=== PATIENT | male | born 1960 | race Caucasian/White ===

== ENCOUNTER 2018-07-08 09:21 | Inpatient (IN) ==
[2018-07-08] MEDS ORDERED: NS 1,000 ML IV ONE (09:37)
[2018-07-08] MEDS ORDERED: ATIVAN IV ONE (09:37)
[2018-07-08] MEDS ORDERED: ZOFRAN IV ONE (09:37)
[2018-07-08 10:02] LABS: BASO# 0.01 X1000 (0.0-0.2); BASO% 0.1 % (0.0-0.8); HEMATOCRIT 41.1 % (42.0-52.0); HEMOGLOBIN 13.5 g/dL (14.0-18.0); IMM GRAN# 0.05 X1000 (0.0-0.04); IMM GRAN% 0.4 % (0.0-0.5); LYMPH# 0.73 X1000 (1.2-3.4); LYMPH% 5.5 % (20.5-51.1); MCH 33.6 PG (27-31); MCHC 32.8 g/dL (33-37); MCV 102.2 FL (81-99); MONO# 0.88 X1000 (0.11-0.59); MONO% 6.7 % (1.7-9.3); MPV 12.5 FL (7.4-10.4); NEUT# 11.53 X1000 (1.4-6.5); NEUT% 87.3 % (42.2-75.2); PLT 174 X1000 (130-400); RBC 4.02 XMIL (4.7-6.1)
[2018-07-08 10:27] LABS: ALB/GLOB RATIO 1.3; ALBUMIN 3.3 g/dL (3.5-5.0); CALCIUM 8.8 mg/dL (8.8-10.2); CREATININE 2.8 mg/dL (0.7-1.2); MAGNESIUM 2.6 mg/dL (1.5-2.7); POTASSIUM 4.7 mmol/L (3.5-5.1); TOTAL BILIRUBIN 2.18 mg/dL (0.20-1.00); TOTAL PROTEIN 5.9 g/dL (6.3-8.3)
--- NOTE | 2018-07-08 11:34 | Diag Imaging Result Doc PS360 ---
EXAM: CHEST-1 VIEW HISTORY: POSSIBLE SEPSIS TECHNIQUE: Chest single view COMPARISON: 06/29/2018 FINDINGS: Poor inspiratory effort. The heart is not enlarged. The vessels are not distended. There are no infiltrates. No effusion identified. There are multiple old rib fractures and an old injury to the right humerus. IMPRESSION: No pneumonia. Electronically signed by Adan Olea 07/08/2018 11:32 AM
--- NOTE | 2018-07-08 11:50 | PROVIDER DOCUMENTATION ---
This chart was entered by Kalli Evans Scribe, acting as scribe for Vish Acevedo CRNP. HPI-General Adult - General Source: patient - History of Present Illness -Gen Adult Nature of Presenting Problems: 58yom via EMS with hx of DC, HTN, Lupus c/o nausea, hematemesis, and bright bloody stools, and generalized weakness x 3 days. He denies diarrhea. The patie nt is a poor historian. He reports he has not had an alcoholic beverage in 2 days, but he usually drinks approximately 1 pint of whiskey daily x 10 years. He reports he has been attempting to discontinue use of alcohol for the past few days. He reports he is unsure if he began vomiting before of after he discontinued use of alcohol. Denies abdominal pain, fever, chills, chest pain, or SOB. Location of Pain/Injury: reports: none Pain Radiation: reports: no radiation Quality of Pain: reports: none Severity: reports: mild, moderate Onset/Duration: reports: 3 days ago Timing: reports: still present, intermittent, constant Context/Activities at Onset: reports: none Modifying Factors: improves with: nothing Associated Symptoms: reports: nausea, vomiting Similar Symptoms Previously?: No Recently seen or treated by another doctor?: No <Vish Acevedo - Last Filed: 07/08/18 11:48> <Zak Espinoza - Last Filed: 07/10/18 01:55> - General Chief Complaint: Nausea/Vomiting Stated Complaint: n/v Time Seen by Provider: 07/08/18 09:29 Allergies/Adverse Reactions: Patient Allergies Allergy/AdvReac Type Severity Reaction Status Date / Time No Known Allergies Allergy Verified 10/15/14 10:36 Home Medications: Home Medication List Medication Instructions Recorded Confirmed Last Taken Type Hydroxychloroquine [Plaquenil] 200 mg PO BID 09/02/13 07/08/18 10/15/14 History Lisinopril 40 mg PO DAILY 09/02/13 07/08/18 10/15/14 History Metoprolol [Lopressor] 50 mg PO BID 09/02/13 07/08/18 10/15/14 History Ranitidine [Zantac] 150 mg PO BID 09/02/13 07/08/18 10/15/14 History Hydroxyzine [Atarax] 25 mg PO QHS 05/28/14 07/08/18 10/14/14 History Isosorbide Mononitrate E.r. [Imdur] 30 mg PO DAILY 05/28/14 07/08/18 10/15/14 History Simvastatin 20 mg PO QHS 05/28/14 07/08/18 10/14/14 History Review of Systems - Adult - REVIEW OF SYSTEMS - ADULT Constitutional: denies: chills, fever Eyes: denies: discharge, dry eyes Ears, Nose, Mouth & Throat: denies: ear discharge, ear pain Cardiovascular: denies: chest pain, palpitations Respiratory: denies: cough, shortness of breath Gastrointestinal: reports: nausea, vomiting, other (bright bloody stools) Genitourinary: denies: dysuria, hematuria Musculoskeletal: denies: back pain, muscle aches, muscle weakness Integumentary: reports: no symptoms reported Neurological: denies: dizziness/vertigo, headache/migraines Psychiatric: reports: no symptoms reported Endocrine: reports: no symptoms reported Hematologic/Lymphatic: reports: no symptoms reported Allergic/Immunologic: reports: no symptoms reported All Other Systems: Reviewed and Negative <Vish Acevedo - Last Filed: 07/08/18 11:48> Past History - Adult - PAST MEDICAL HISTORY-ADULT Review of Records: reports: Old Records Reviewed, Nursing Assessment Review, Medications Reviewed Major Childhood Illnesses: reports: denies history Cardiovascular: reports: A-Fib, CAD, HTN, DC (x 4) Respiratory: reports: denies history Gastrointestinal: reports: denies history Genitourinary: reports: denies history Musculoskeletal: reports: arthritis Neurological: reports: denies history Endocrine/Immune: reports: lupus Other Conditions: reports: denies history - PRIOR SURGERIES/PROCEDURES Surgical/Procedure History: reports: cardiac stent, orthopedic (extremity) - PRIOR HOSPITALIZATIONS Prior Hospitalizations: reports: for similar symptoms - IMMUNIZATION STATUS Childhood Immunizations: See Nurse Assessment Flu Vaccine: See Nurse Assessment - FAMILY HISTORY Family History: reviewed, not pertinent - SOCIAL HISTORY Smoking: cigarettes, less than 1 pack/day Substance Use: alcohol Alcohol Use Frequency: every day Living Situation: alone <Vish Acevedo - Last Filed: 07/08/18 11:48> Physical Exam-General - PHYSICAL EXAM-ADULT Initial Vital Signs Reviewed: Yes - CONSTITUTIONAL General Appearance: alert, no apparent distress, cachetic. negative: lethargic, slow to respond - EYES Eyes: PERRL/EOMI, pink conjunctivae. negative: sclera injected, scleral icterus, sunken eyes - HEAD, EARS, NOSE, MOUTH & THROAT HENMT: normocephalic/atraumatic, pharynx normal, other (dry mucous membranes) - NECK Neck: non-tender, full range of motion, supple, normal inspection - RESPIRATORY Respiratory: chest non-tender, lungs clear, normal breath sounds, no pleuratic chest pain, no respiratory distress, no accessory muscle use. negative: rhonchi, wheezing - CARDIOVASCULAR Cardiovascular: normal peripheral pulses, regular rate, rhythm, no edema, no gallop, no murmur, tachycardia - GASTROINTESTINAL (ABDOMEN) Abdominal Exam: normal bowel sounds, non tender, soft, no pulsatile mass. negat myke: distended, guarding, rigid, rebound, tenderness, hernia, mass - MUSCULOSKELETAL Back Exam: normal inspection Extremity: normal range of motion, non-tender, normal inspection, no pedal edema , pelvis stable - SKIN Integumentary: normal color, warm/dry. negative: cyanosis, diaphoresis, jaundic e, mottled, pallor - NEUROLOGIC Neurologic: grossly normal, no motor/sensory deficits - PSYCHIATRIC Psych/Mental Status: normal mood/affect, normal thought content, normal thought process, oriented x 3 <Vish Acevedo - Last Filed: 07/08/18 11:48> Progress - PLAN OF CARE/RESULTS Progress/Plan/Lab Results: Vital Signs - 8 hr 07/08/18 09:25 Temperature 98.8 F Pulse Rate 131 H Respiratory Rate 17 Blood Pressure 112/73 Orders Category Date Time Status Cardiac Monitoring DIRECTED Care 07/08/18 09:37 Active ALCOHOL BLOOD Stat Lab 07/08/18 09:44 Ordered AMMONIA [CHEM] Stat Lab 07/08/18 09:44 Ordered AMYLASE [CHEM] Stat Lab 07/08/18 09:44 Ordered BLOOD CULTURE [BLDCUL] Stat Lab 07/08/18 09:37 Uncollected CBC WITH DIFF [HEME] Stat Lab 07/08/18 09:44 Ordered COMPREHENSIVE METABOLIC PANEL [CHEM] Stat Lab 07/08/18 09:44 Ordered LACTATE, PLASMA [CHEM] Stat Lab 07/08/18 09:44 Ordered LIPASE [CHEM] Stat Lab 07/08/18 09:44 Ordered MAGNESIUM [CHEM] Stat Lab 07/08/18 09:44 Ordered OCCULT BLOOD SCREENING [STOOL] Stat Lab 07/08/18 09:37 Uncollected TROPONIN T Stat Lab 07/08/18 09:44 Ordered UA NIMS W/REFLEX CULT [URINALYSIS] Stat Lab 07/08/18 09:37 Uncollected 0.9% Sodium Chloride Inj [Ns] 1,000 ml Med 07/08/18 09:37 Active IV 999 mls/hr Lorazepam [Ativan] Med 07/08/18 09:37 Discontinued 1 mg IV NOW ONE Ondansetron [Zofran] Med 07/08/18 09:37 Discontinued 4 mg IV NOW ONE Pt in agreement with admission plan. Result Diagrams: 07/08/18 09:32 07/08/18 09:32 - EKG 1 Time of EKG reading by physician:: 09:28 EKG Read and Signed by:: Deny Jones EKG Interpretation (*Must complete 3 of following elements*): Abnormal Rate: 128 Rhythm: Sinus tachycardia QRS: RBB Comments: pulmonary disease pattern - XRAY 1 XRAY Study: Chest (IMPRESSION: No pneumonia. Electronically signed by Adan Olea 07/08/2018 11:32 AM) - CONSULTS/PCP/HOSPITALIST Notification #1 *Consult/PCP/Hospitalist*: Dr. Cuellar Time Discussed: 11:42 Consult Disposition: Will see in ED, Admit (Md states he will enter admission orders.) <Vish Acevedo - Last Filed: 07/08/18 11:48> - PLAN OF CARE/RESULTS Progress/Plan/Lab Results: Orders Category Date Time Status Admit - [facility] Routine AdmDCTranf 07/08/18 13:28 Active Cardiac Monitoring DIRECTED Care 07/08/18 09:37 Completed IV Insertion ORDERED Care 07/08/18 11:08 Completed Nursing [Misc. NRSG Communication Order] DIRECTED Care 07/08/18 12:46 Completed Nursing- Obtain EKG ONCE Care 07/08/18 13:28 Completed Vital Signs Order Q30M Care 07/08/18 10:17 Completed CHEST-1 VIEW [RAD] Stat Exams 07/08/18 10:58 Completed ALCOHOL BLOOD Stat Lab 07/08/18 09:32 Completed AMMONIA [CHEM] Stat Lab 07/08/18 09:32 Completed AMYLASE [CHEM] Stat Lab 07/08/18 09:32 Completed BLOOD CULTURE [BLDCUL] Stat Lab 07/08/18 10:00 Results CBC WITH DIFF [HEME] Stat Lab 07/08/18 09:32 Completed CK PROFILE [SP CHEM] Stat Lab 07/08/18 11:25 Completed COMPREHENSIVE METABOLIC PANEL [CHEM] Stat Lab 07/08/18 09:32 Completed LACTATE, PLASMA [CHEM] Lab 07/08/18 15:42 Completed LACTATE, PLASMA [CHEM] Q3H Lab 07/08/18 12:54 Completed LACTATE, PLASMA [CHEM] Stat Lab 07/08/18 09:32 Completed LIPASE [CHEM] Stat Lab 07/08/18 09:32 Completed MAGNESIUM [CHEM] Stat Lab 07/08/18 09:32 Completed OCCULT BLOOD SCREENING [STOOL] Stat Lab 07/08/18 10:20 Completed PROTIME WITH INR [COAG] Stat Lab 07/08/18 09:32 Completed PTT [COAG] Stat Lab 07/08/18 09:32 Completed TROPONIN T Stat Lab 07/08/18 09:32 Completed TROPONIN T Stat Lab 07/08/18 11:25 Completed UA NIMS W/REFLEX CULT [URINALYSIS] Stat Lab 07/09/18 08:50 Completed 0.9% Sodium Chloride Inj [Ns] 1,000 ml Med 07/08/18 15:00 Discontinued Potassium Chloride 10 meq IV 150 mls/hr 0.9% Sodium Chloride Inj [Ns] 1,000 ml Med 07/08/18 09:37 Discontinued IV 999 mls/hr Chlordiazepoxide [Librium] Med 07/08/18 13:28 Discontinued 25 mg PO TID@0600,1300,2100 Hydroxychloroquine [Plaquenil] Med 07/08/18 21:00 Discontinued 200 mg PO BID Isosorbide Mononitrate E.r. [Imdur] Med 07/09/18 09:00 Active 30 mg PO DAILY LISINOpril [Prinivil] Med 07/09/18 09:00 Discontinued 40 mg PO DAILY Lorazepam [Ativan] Med 07/08/18 09:37 Discontinued 1 mg IV NOW ONE Metoprolol [Lopressor] Med 07/08/18 21:00 Active 50 mg PO BID Mvi [M.v.i.-12] 10 ml Med 07/08/18 12:07 Discontinued Folic Acid 1 mg Magnesium Sulfate 1 gm Thiamine 100 mg 0.9% Sodium Chloride Inj [Ns] 1,000 ml IV NOW Ondansetron [Zofran] Med 07/08/18 09:37 Discontinued 4 mg IV NOW ONE Ranitidine [Zantac] Med 07/08/18 21:00 Discontinued 150 mg PO BID SIMVAstatin [Zocor] Med 07/08/18 21:00 Discontinued 20 mg PO QHS Oxygen Device Stat Oth 07/08/18 10:58 Completed EKG [EKG] Stat Ther 07/08/18 13:28 Draft Transfer/Admit Order [TRANSFER] Routine Transfer 07/08/18 12:14 Completed Result Diagrams: 07/10/18 01:05 07/09/18 04:45 <Zak Espinoza - Last Filed: 07/10/18 01:55> Procedures - CENTRAL LINE Consent Form Signed?: No Time-Out Verification Completed?: Yes Central Line Lumen: triple Central Line Procedure Prep: Hand Hygeine Performed, Kit Utilized, Chloraprep, Sterile Body Drape Placed Patient Position (To prevent Air Embolism): Trendelenburg (SC/IJ) Central Line Position: internal jugular (L) Ultrasound Guided?: Yes Hat, mask, sterile gown, & sterile gloves worn by physician?: Yes Site scrubbed vigorously for 30 seconds? (Groin: 2 min): Yes Post Procedure: Sutured in place, Sterile field maintained, BioPatch placed, Sterile dressing applied, Blood aspirated from each lumen, Placement verfied by XRAY Complications: none <Zak Espinoza - Last Filed: 07/10/18 01:55> Departure - Departure Date of Disposition Decision: 07/08/18 Time of Disposition Decision: 11:42 Certified Medical Emergency: Emergent - Critical Care Note This patient required my direct & personal management of CC.: No <Vish Acevedo - Last Filed: 07/08/18 11:48> <Zak Espinoza - Last Filed: 07/10/18 01:55> - Departure DIAGNOSIS: Elevated troponin, Elevated lipase, Dehydration, Alcoholism Hypotension Qualifiers: Hypotension type: unspecified hypotension type Qualified Code(s): I95.9 - Hypotension, unspecified Vomiting Qualifiers: Vomiting type: unspecified Vomiting Intractability: non-intractable Nausea presence: with nausea Qualified Code(s): R11.2 - Nausea with vomiting, unspecified Disposition: ADMITTED INPATIENT 09 Condition: Fair Attestation - Physician/ DANNY Attestation Patient care was provided by Advanced Practice Provider:: Yes Advanced Practice Provider:: Vish Acevedo Advanced Practice Provider documentation review:: The Mid-level provider documentation, treatment plan and medical decision making was reviewed by the physician who agrees with all treatment and medical decision making by the MLP. The physician spent face to face time with patient:: No Advanced Practice Provider documentation review:: Supervising physician onsite and consulted in the evaluation and care of this patient. The physician did not have a face to face encounter with the patient. <Vish Acevedo - Last Filed: 07/08/18 11:48> - Physician/ DANNY Attestation The physician spent face to face time with patient:: Yes Advanced Practice Provider documentation review:: Supervising physician onsite and consulted in the evaluation and care of this patient. The physician did have a face to face encounter with the patient. <Zak Espinoza - Last Filed: 07/10/18 01:55> This chart was documented by the indicated scribe, (Kalli Evans, Sergioibe) and accurately reflects the services I performed and decisions made by , Vish Acevedo CRNP, as attested by the provider's signature.
[2018-07-08] MEDS ORDERED: M.V.I.-12 10 ML, FOLIC ACID 1 MG, MAGNESIUM SULFATE 1 GM, THIAMINE 100 MG in NS 1,000 ML IV ONE (12:07)
[2018-07-08 12:10] LABS: INR 0.91
[2018-07-08 12:11] LABS: PTT 27.9 Seconds (22.3-41.8)
--- NOTE | 2018-07-08 13:19 | HISTORY AND PHYSICAL ---
CHIEF COMPLAINT: Nausea and vomiting. PRESENT ILLNESS: This is one of several [facility] admissions for this 58-year-old white man, patient of Dr. Espino, with history of alcoholism who usually drinks a pint of whiskey daily, but has had none for the last 2 days. He is trying to quit. He had some nausea with vomiting and some hematemesis this morning, also bright red bloody stools. There has been no diarrhea. He had several lab abnormalities, including elevation of BUN and creatinine, positive troponin, elevation of liver functions and bilirubin. He is admitted for treatment of alcoholic liver disease, acute alcoholism, impending DTs, hematemesis, and weakness with hypotension. PAST MEDICAL HISTORY: Significant for hypertension, previous VT, lupus, previous strokes by CT in May. CURRENT MEDICATIONS: Plaquenil 200 mg b.i.d., lisinopril 40 mg daily, Lopressor 50 mg b.i.d., Zantac 150 mg b.i.d., hydroxyzine 25 mg at bedtime, Imdur 30 mg daily, simvastatin 20 mg at bedtime. ALLERGIES: None known. REVIEW OF SYSTEMS: Weakness, weight loss, nausea, alcoholism, alcoholic liver disease, and other conditions as above. He has had no significant recent chest pain or significant shortness of breath, although he does complain of weakness for the last couple or 3 days. He apparently has a cardiac stent. He smokes less than 1 pack per day. PHYSICAL EXAMINATION: VITAL SIGNS: Temperature 98.6 degrees, heart rate 124, respirations 17, blood pressure 95/54, O2 saturation on room air 98%. HEENT: He wears glasses. He has a melvin. Pharynx benign. NECK: Supple with no mass or lymphadenopathy. HEART: Regular in rate and rhythm with no murmur, rub, or gallop. LUNGS: Clear with no rales or rhonchi. ABDOMEN: Soft with no mass or tenderness. Bowel sounds are normal. EXTREMITIES: No cyanosis, clubbing, or edema. RECTAL AND GENITALIA: Deferred. IMPRESSION: 1. Gastritis, acute with hematemesis. 2. Alcoholism, acute and chronic. 3. Impending delirium tremens (DTs). 4. History of coronary artery disease. 5. History of cerebrovascular disease. 6. Lupus. 7. Hypertension. 8. Abnormal troponins. 9. Abnormal liver functions. 10. Acute kidney injury. PLAN: Admit to CICU. cc: Dylan Cuellar MD
[2018-07-08] MEDS: LIBRIUM PO SCH ×2 (14:14→20:18)
[2018-07-08] MEDS ORDERED: POTASSIUM CHLORIDE 10 MEQ in NS 1,000 ML IV ONE (15:00)
[2018-07-08] MEDS: LOPRESSOR PO SCH (20:18)
[2018-07-08] MEDS ORDERED: ZANTAC PO SCH (21:00)
[2018-07-08] MEDS ORDERED: PLAQUENIL PO SCH (21:00)
[2018-07-08] MEDS ORDERED: ZOCOR PO SCH (21:00)
[2018-07-09 05:15] LABS: BASO# 0.01 X1000 (0.0-0.2); BASO% 0.1 % (0.0-0.8); HEMATOCRIT 33.9 % (42.0-52.0); IMM GRAN# 0.02 X1000 (0.0-0.04); IMM GRAN% 0.3 % (0.0-0.5); LYMPH# 0.59 X1000 (1.2-3.4); LYMPH% 7.8 % (20.5-51.1); MCH 33.3 PG (27-31); MCHC 32.4 g/dL (33-37); MCV 102.7 FL (81-99); MONO% 6.6 % (1.7-9.3); MPV 12.3 FL (7.4-10.4); NEUT# 6.49 X1000 (1.4-6.5); NEUT% 85.2 % (42.2-75.2); PLT 125 X1000 (130-400); WBC 7.61 X1000 (4.8-10.8)
[2018-07-09 05:53] LABS: ALB/GLOB RATIO 0.9; ALBUMIN 2.5 g/dL (3.5-5.0); CREATININE 1.4 mg/dL (0.7-1.2); POTASSIUM 3.4 mmol/L (3.5-5.1); TOTAL PROTEIN 5.4 g/dL (6.3-8.3)
[2018-07-09] MEDS: LIBRIUM PO SCH ×3 (06:07→20:26)
[2018-07-09 07:24] LABS: LYMPHS 10 % (21-51); MONO 2 % (1-9); SEGS 88 % (42-75)
--- NOTE | 2018-07-09 07:53 | PROGRESS NOTE ---
DATE: 07/09/2018 SUBJECTIVE: Mr. Bullard is doing fair. The patient admitted with abdominal pain, nausea, vomiting, hematemesis, and melena. The patient was drinking heavily, had abdominal pain and generalized weakness. Nurses reported some urinary incontinence. He denied any high-grade fever or chills. The patient was tachycardic. The patient is vague and a poor historian. Admission history and physical noted. OBJECTIVE: Vital signs: Reviewed. Neck: Supple. No JVD. Lungs: Bibasilar crepitations, occasional wheezing. Cardiovascular: S1 and S2 heard. Abdomen: Soft, globular. Bowel sounds present. Tenderness in the epigastrium. Extremities: No cyanosis or clubbing. No acute DVT. Central Nervous System: Alert, awake. Answering questions fair. Able to move all 4 limbs. DIAGNOSTIC DATA: PT/INR is 0.91, PTT 27.9. Electrolytes done today, potassium 3.4. AST 592, ALT 239, lipase 1904, amylase 324. Patient's admission CPK was 1018. The patient did have leukocytosis on admission. Admission chemistry did revealed AST of 1091, ALT of 341, lipase 2033. ASSESSMENT: The patient admitted with: 1. Acute alcoholic pancreatitis, most likely alcoholic liver disease. 2. Rhabdomyolysis. 3. Upper gastrointestinal bleeding. 4. Gastritis. 5. Acute renal failure. 6. The patient does have a history suggestive of lupus. 7. Osteoarthritis. PLAN: Admit the patient. IV hydration. DT and seizure precaution. Proton pump inhibitor. Banana bag daily. GI consult. I am going to get CT scan. The overall prognosis is fair to guarded. Patient is aware. cc: MD Dylan Richard MD
--- NOTE | 2018-07-09 07:54 | Diag Imaging Result Doc PS360 ---
CHEST-PORTABLE - 07/09/2018 INDICATION: sob COMPARISON: 07/08/2018 FINDINGS: The lungs are normally expanded and clear. Heart size and mediastinal contours are normal. No pneumothorax or pleural effusion. IMPRESSION: Negative exam. Electronically signed by Pete Mcpherson 07/09/2018 7:51 AM
[2018-07-09 08:02] LABS: MAGNESIUM 2.6 mg/dL (1.5-2.7); PHOSPHORUS 1.8 mg/dL (2.7-4.5)
[2018-07-09] MEDS: LOPRESSOR PO SCH ×2 (08:16→20:26)
[2018-07-09] MEDS: IMDUR PO SCH (08:16)
[2018-07-09] MEDS: M.V.I.-12 10 ML, FOLIC ACID 1 MG, MAGNESIUM SULFATE 1 GM, THIAMINE 100 MG in NS 1,000 ML IV SCH ×6 (08:16)
[2018-07-09] MEDS: NICODERM PATCH TD SCH (08:16)
[2018-07-09] MEDS: PROTONIX IV SCH ×2 (08:16→20:26)
--- NOTE | 2018-07-09 08:20 | Diag Imaging Result Doc PS360 ---
EXAM: CT ABDOMEN/PELVIS W/O CONTRAST INDICATION: pancreatitis TECHNIQUE: This exam was performed using automated exposure control, adjustment of mA or kV according to patient size, and/or use of iterative reconstruction technique. COMPARISON: None. FINDINGS: There is a trace left basilar pleural fluid collection and adjacent left basilar atelectasis. There is also very minimal right basilar atelectasis. There is severe hepatic steatosis. The gallbladder is unremarkable. There is no evidence of biliary dilatation. The spleen is unremarkable. There is extensive inflammatory stranding surrounding the pancreas consistent with acute pancreatitis. No loculated fluid collection is identified to indicate an abscess given the limitations of an unenhanced study. There is no evidence of pancreatic pseudocyst. There is no pancreatic ductal dilatation. The adrenal glands, kidneys, and urinary bladder are unremarkable. There is a small amount of layering free fluid in the pelvis tracking from the inflamed pancreas. The appendix is normal. The remainder of the GI tract is essentially unremarkable. There is aortoiliac atherosclerotic calcification. There is no evidence of aortic aneurysm. 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 There is lumbar spondylosis. IMPRESSION: 1.Acute pancreatitis. 2.Severe hepatic steatosis. 3.Small left pleural effusion with adjacent left basilar atelectasis. 4.Other incidental/nonacute findings detailed above. Electronically signed by Konstantin Shabazz 07/09/2018 8:18 AM
[2018-07-09 08:42] LABS: HEMATOCRIT 37.2 % (42.0-52.0); HEMOGLOBIN 12.1 g/dL (14.0-18.0)
[2018-07-09 08:54] LABS: URINE SOURCE CLEAN CATCH
[2018-07-09 09:00] LABS: BILIRUBIN URINE SMALL (NEGATIVE); BLOOD URINE LARGE (NEGATIVE); COLOR YELLOW; GLUCOSE URINE NEGATIVE (NEGATIVE); KETONE URINE 10 mg/dL (NEGATIVE); LEUKOCYTES URINE NEGATIVE (NEGATIVE); NITRITE URINE NEGATIVE (NEGATIVE); PH URINE 5.5; PROTEIN URINE 30 mg/dL (NEGATIVE); SP GRAVITY URINE 1.009; TURBIDITY URINE CLEAR (CLEAR); UROBILINOGEN URINE 3 mg/dL (NORMAL)
[2018-07-09] MEDS ORDERED: PRINIVIL PO SCH (09:00)
[2018-07-09 09:01] LABS: UR EPITHELIAL CELLS <10 /HPF (<10); URINE BACTERIA NEGATIVE /HPF; URINE WBC <10 /HPF (<10)
[2018-07-09] MEDS: POTASSIUM CHLORIDE 20 MEQ in LR 1,000 ML IV SCH ×3 (09:16→18:54)
--- NOTE | 2018-07-09 10:44 | EKG Report ---
Test Performed on : 07/08/2018 09:28:40 AM Test Reason : elevated troponin Blood Pressure : / mmHG Vent. Rate : 128 BPM Atrial Rate : 128 BPM P-R Int : 122 ms QRS Dur : 112 ms QT Int : 346 ms P-R-T Axes : 068 -52 075 degrees QTc Int : 505 ms Sinus tachycardia. Indeterminate axis Pulmonary disease pattern Right bundle branch block Septal infarct (cited on or before 07-JAN-2009) Abnormal ECG When compared with ECG of 28-MAY-2014 09:58, premature ventricular complexes. are no longer present Vent. rate has increased BY 60 BPM QRS axis shifted left Questionable change in initial forces of Anteroseptal leads Unconfirmed Result
--- NOTE | 2018-07-09 11:38 | GASTROENTEROLOGY CONSULTATION ---
DATE: 07/09/2018 REQUESTING PHYSICIAN: Surjit Espino MD REASON FOR CONSULTATION: Gastrointestinal bleeding and acute pancreatitis. HISTORY OF PRESENT ILLNESS: Mr. Bullard is a 58-year-old male who was admitted on 07/08/2018 for nausea and vomiting. Per the patient, he had thrown up blood on the day of admission, and he was also having bright red blood in the stools. He has a history of alcoholism. He drinks about 1 pint of whiskey daily. He has done that for many decades. He quit drinking about 2 days before admission. In the hospital, he was noted to have a drop in hematocrit from 41 to 37.2. He was also noted to be jaundiced, and his labs showed evidence of pancreatitis, likely secondary to alcohol. Today, this morning, the patient just came back from a CT scan of the pelvis. He is having brown stools, and there are no reports of any vomiting blood per the nursing staff for today. He complains of epigastric discomfort and its slowly getting better. PAST MEDICAL HISTORY: 1. Hypertension. 2. GA. 3. Coronary artery disease. 4. Lupus. 5. History of stroke by CT in May. 6. Alcoholism. 7. Hyperlipidemia. PAST SURGICAL HISTORY: Denies any recent EGD or colonoscopy in the past. ALLERGIES: No known drug allergies. MEDICATIONS IN THE HOSPITAL: Include multivitamin once daily, Librium, isosorbide mononitrate, Ativan, lactated Ringer, metoprolol, Nicoderm patch, Protonix 40 mg IV b.i.d. ORAL INTAKE STATUS: He is currently n.p.o. FAMILY HISTORY: Noncontributory. REVIEW OF SYSTEMS: Denies any fevers, rigors, chills. Does complain of feeling weak and tired. He has complained of abdominal pain, weight loss and nausea and intermittent vomiting. He has thrown up blood a few days ago. He also complained of passing blood in the stools, but since in the hospital, he has not thrown up and he has not passed any blood in the stools. He has a history of coronary artery disease and a heart stent. He is a chronic smoker. Denies any neurologic. He does have some history of arthritis. Denies any history of NSAID abuse. SOCIAL HISTORY: He drinks 1 pint of whiskey every day for more than 2 to 3 decades. Quit drinking 2 days ago. He smokes 1 pack a day. No history of drug abuse. PHYSICAL EXAMINATION: Vital Signs: Temperature 98.2 degrees, heart rate 116, respiratory rate 16, blood pressure 92/61, saturating 95% on 2 liters nasal cannula. Body weight of 115 pounds 4.8 ounces. BMI 16 kg. General: He is thinly built, lying in bed, in no acute distress. HEENT: Pale conjunctivae. Icteric sclerae. Pupils equal, reactive to light. Neck: Supple. Abdomen: Soft, nondistended. No guarding or rebound. There is mild discomfort in the epigastrium. Extremities: No cyanosis, clubbing. Neurologic: He is alert, awake, oriented. LABORATORY DATA: Hemoglobin and hematocrit are 12.1 and 37.2, white count of 7.6, platelet count of 125,000. INR of 0.9, PT of 13, PTT of 27.9. Sodium 141, potassium 3.4, chloride 97, bicarbonate 25, anion gap of 19, BUN of 47, creatinine 1.4, glucose of 115, calcium is 8, phosphorus 1.8, magnesium 2.2. Total bilirubin is 1, AST 592, ALT 239, alkaline phosphatase is 206, total protein 5.4, albumin of 2.5, creatine kinase of 4922, ammonia of 17. Amylase 324, lipase of 1904, lactate of 1.1. Urinalysis showing positive protein, positive ketones, large amount of blood, small bilirubin, 10 to 20 RBCs. Plasma alcohol level on admission was none. Imaging in the form of abdomen and pelvis CT scan done this morning showed gallbladder is unremarkable, severe hepatic steatosis. Extensive inflammatory stranding surrounding the pancreas consistent with acute pancreatitis. No loculated fluid collections identified to indicate an abscess given the limitations of unenhanced study. There is no evidence of any pancreatic pseudocysts. No evidence of aortic aneurysm. Small left pleural effusion with adjacent left basilar atelectasis. IMPRESSION AND PLAN: 1. Acute alcoholic pancreatitis. In this regard, the patient will continue on intravenous fluids 200 ml per hour. We will keep him nothing by mouth except ice chips. We will check amylase and lipase in the morning. 2. Alcoholism. The patient counseled to quit alcohol completely. We will watch for withdrawal. He will continue on Librium and banana bag once daily. 3. Chronic smoker. The patient counseled to quit smoking completely. He is on NicoDerm patch. 4. Severe hepatic steatosis, likely secondary to alcoholism. We will continue to watch the liver enzymes. We will check CBC and PT, PTT, INR daily. We will also check acute hepatitis panel. 5. History of vomiting blood a few days ago. Hematocrit is stable. We will continue conservative management for now, but if the patient starts having any active gastrointestinal bleeding, then we have to do an esophagogastroduodenoscopy at some point. 6. Gastrointestinal prophylaxis with proton pump inhibitors twice daily. We will start him on Carafate 1 gram every 6 hours. 7. We will keep an eye on the blood counts and transfuse as needed. Currently, the hematocrit is stable. 8. We will follow along. The above plans discussed with the patient and the nursing staff. He voiced understanding, and all questions answered. Please call us with any further questions. cc: MD Dylan Galeano MD Bharat K. Vakharia, MD MTDD
[2018-07-09] MEDS: CARAFATE LIQUID PO SCH ×2 (14:21→20:26)
[2018-07-09 14:24] LABS: HEMATOCRIT 33.9 % (42.0-52.0); HEMOGLOBIN 11.4 g/dL (14.0-18.0)
[2018-07-09] MEDS ORDERED: POTASSIUM PHOSPHATE 15 MMOL in NS 250 ML IV ONE (17:58)
--- NOTE | 2018-07-09 18:19 | PROGRESS NOTE ---
DATE: 07/09/2018 Mr. Bullard is doing fair. The patient is resting. Patient was little anxious and tachycardic. He did receive his Librium. No GI bleed. No nausea or vomiting. Denied any diarrhea. CT scan results reviewedVital signs: Noted. Neck: Supple. No JVD. Lungs: Bibasilar crepitation. Heart: S1 and S2 heard. Abdomen: Soft. No distention. Bowel sounds present. Extremities: No cyanosis, clubbing. No acute DVT. 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 Able to move all 4 limbs. CONSIDERATION: The patient admitted with acute pancreatitis. Chest x-ray noted. CT scan did reveal acute pancreatitis, severe hepatic steatosis, small left pleural effusion with left basilar atelectasis. His other problems include alcohol abuse, gastrointestinal bleed. I am monitoring hemoglobin and hematocrit. Appreciate Dr. Tejeda's help managing patient. We will continue hydration, monitor patient for fluid overload. Consider checking appropriate labs tomorrow. cc: MD Dylan Richard MD
[2018-07-09] MEDS ORDERED: LASIX IV ONE (20:14)
[2018-07-09 20:32] LABS: HEMATOCRIT 33.2 % (42.0-52.0); HEMOGLOBIN 10.7 g/dL (14.0-18.0)
--- NOTE | 2018-07-09 20:48 | Diag Imaging Result Doc PS360 ---
EXAM: CHEST-PORTABLE HISTORY: possible fluid overload TECHNIQUE: Portable chest single view COMPARISON: 7:35 AM FINDINGS: There is a small left pleural effusion with basilar atelectasis and a questionable underlying infiltrate. No other interval change. Electronically signed by Adan Olea 07/09/2018 8:46 PM
[2018-07-09] MEDS ORDERED: M.V.I.-12 10 ML, FOLIC ACID 1 MG, MAGNESIUM SULFATE 1 GM, THIAMINE 100 MG in NS 1,000 ML IV ONE (21:41)
[2018-07-09] MEDS ORDERED: THIAMINE 100 MG in NS 50 ML IV SCH (21:45)
[2018-07-09] MEDS ORDERED: NS 1,000 ML IV SCH (21:45)
[2018-07-09 21:50] LABS: ALLEN TEST YES; BE -5.4 mmoll (-3.0-3.0); BLOOD TYPE ARTERIAL; HCO3-(ACT) 20.7 mmoll (20.0-26.0); METHB 0.9 % (0.0-1.5); O2(CT) 15.3 mL/dL (15.0-23.0); O2HB 95.2 % (95.0-99.0); PO2(98.6) 104 mmHg (60-100); SAMPLE BLOOD; SAO2 98.4 % (95.0-100.0); THB 11.3 g/dL (11.5-17.4)
[2018-07-09 21:51] LABS: MODALITY AMBU BAG; PCO2(98.6) 85 mmHg (35-45); pH(98.6) 7.09 (7.35-7.45)
[2018-07-09] MEDS ORDERED: DOPAMINE 800 MG/D5W 800 MG/500 ML IV.SOLN IV SCH (22:00)
--- NOTE | 2018-07-09 22:18 | Diag Imaging Result Doc PS360 ---
EXAM: CHEST-PORTABLE HISTORY: NG tube placement TECHNIQUE: Portable chest COMPARISON: 8:26 PM FINDINGS: Interval placement of a nasogastric tube which overlies the esophagus and stomach and appears to be in good position. No other interval change. Electronically signed by Adan Olea 07/09/2018 10:16 PM
[2018-07-09] MEDS: ATIVAN IV PRN (22:30)
[2018-07-09] MEDS ORDERED: ATIVAN IV ONE (22:30)
[2018-07-09] MEDS ORDERED: SODIUM CHLORIDE 0.9% INJ SCH (23:30)
[2018-07-09] MEDS ORDERED: PROTONIX IV SCH (23:30)
[2018-07-10 01:12] LABS: HEMATOCRIT 33.7 % (42.0-52.0); HEMOGLOBIN 11.1 g/dL (14.0-18.0)
[2018-07-10 01:21] LABS: INR 1.03; PROTIME 14.4 Seconds (11.0-16.0)
[2018-07-10 01:29] LABS: MAGNESIUM 1.7 mg/dL (1.5-2.7)
[2018-07-10 02:03] LABS: CK INDEX 5.7 (0.0-2.5); CK-MB 69.29 ng/mL (0.0-5.0)
[2018-07-10] MEDS: CARAFATE LIQUID PO SCH ×4 (02:25→20:01)
[2018-07-10 05:17] LABS: ALLEN TEST YES; BE 3.2 mmoll (-3.0-3.0); BLOOD TYPE ARTERIAL; HCO3-(ACT) 27.4 mmoll (20.0-26.0); METHB 0.8 % (0.0-1.5); O2(CT) 13.2 mL/dL (15.0-23.0); O2HB 94.6 % (95.0-99.0); PCO2(98.6) 49 mmHg (35-45); PO2(98.6) 72 mmHg (60-100); SAMPLE BLOOD; SRATE 14 BPM; THB 9.9 g/dL (11.5-17.4); TVOL 500 mL; pH(98.6) 7.38 (7.35-7.45)
[2018-07-10 05:21] LABS: MODALITY VENTILATOR
[2018-07-10 05:50] LABS: BASO# 0.02 X1000 (0.0-0.2); BASO% 0.4 % (0.0-0.8); EOS# 0.02 X1000 (0.0-0.7); EOS% 0.4 % (0.0-10.0); HEMATOCRIT 29.5 % (42.0-52.0); HEMOGLOBIN 9.5 g/dL (14.0-18.0); IMM GRAN# 0.06 X1000 (0.0-0.04); IMM GRAN% 1.3 % (0.0-0.5); LYMPH# 0.45 X1000 (1.2-3.4); LYMPH% 9.4 % (20.5-51.1); MCHC 32.2 g/dL (33-37); MCV 102.4 FL (81-99); MONO# 0.38 X1000 (0.11-0.59); MPV 12.1 FL (7.4-10.4); NEUT# 3.84 X1000 (1.4-6.5); NEUT% 80.5 % (42.2-75.2); PLT 122 X1000 (130-400); RBC 2.88 XMIL (4.7-6.1); RDW 13.9 % (11.5-14.5); WBC 4.77 X1000 (4.8-10.8)
[2018-07-10 06:07] LABS: INR 0.98; PROTIME 13.8 Seconds (11.0-16.0)
[2018-07-10 06:20] LABS: AGAP 12; ALB/GLOB RATIO 0.7; ALBUMIN 1.8 g/dL (3.5-5.0); ALKALINE PHOSPHATASE 183 U/L (32-122); AMYLASE 88 U/L (20-200); BUN 26 mg/dL (8-22); CALCIUM 7.9 mg/dL (8.8-10.2); CHLORIDE 110 mmol/L (98-107); COSMO 302; CREATININE 0.6 mg/dL (0.7-1.2); ESTIMATED GFR > 60; GLUCOSE 123 mg/dL (70-104); GOT 514 U/L (10-34); GPT 258 U/L (10-44); LIPASE 269 U/L (13-60); POTASSIUM 3.7 mmol/L (3.5-5.1); SODIUM 149 mmol/L (136-145); TCO2 27 mmol/L (25-35); TOTAL BILIRUBIN 1.08 mg/dL (0.20-1.00); TOTAL PROTEIN 4.5 g/dL (6.3-8.3)
[2018-07-10] MEDS: LIBRIUM PO SCH ×3 (06:21→20:01)
[2018-07-10] MEDS ORDERED: POTASSIUM CHLORIDE 10 MEQ in LR 1,000 ML IV SCH (06:30)
[2018-07-10 06:44] LABS: URINE SOURCE CATH
[2018-07-10] MEDS: PROTONIX IV SCH ×2 (06:58→19:55)
--- NOTE | 2018-07-10 06:59 | PROGRESS NOTE ---
DATE: 07/10/2018 SUBJECTIVE: Mr. Bullard was on the ventilator last night. According to nurses, the patient became bradycardic and had cardiac arrest. They called the code. The patient is intubated. The patient was moved to the ICU. The patient is on ventilatory support, am not responding well. The patient is on dopamine. The patient admitted with GI bleed. Also had alcohol abuse, gastritis, history of coronary artery disease, rhabdomyolysis. No nausea or vomiting. PHYSICAL EXAMINATION: Vital Signs: His vital signs noted. General: Patient is on the ventilator. Neck: Supple. No JVD. Lungs: Bilateral air entry present. Decreased air entry at both the bases. CVS: S1 and S2. Tachycardia. Abdomen: Soft, globular. Bowel sounds present. Extremities: No cyanosis, clubbing. No acute DVT. BREAST PULLER: The patient is on ventilator. Uncooperative for a detailed exam. LABORATORY DATA: Done this morning, hemoglobin 9.5, hematocrit 29.5, WBC count 4.77, platelet count 122,000. PT/INR 0.98. Blood gas, pH 7.38, pCO2 was 49, PO2 was 72. This was done on ventilator. His electrolytes are pending. PROBLEM LIST: 1. Acute respiratory failure, status post cardiac arrest. 2. Acute pancreatitis. 3. Gastrointestinal bleed. 4. Alcohol abuse. PLAN: Overall prognosis is poor. I am going to get critical care consult with Dr. Davila. [facility] following patient with us. cc: MD Dylan Richard MD
[2018-07-10 07:04] LABS: CK-MB 50.16 ng/mL (0.0-5.0)
[2018-07-10 07:06] LABS: BILIRUBIN URINE SMALL (NEGATIVE); BLOOD URINE TRACE (NEGATIVE); COLOR YELLOW; GLUCOSE URINE NEGATIVE (NEGATIVE); KETONE URINE TRACE mg/dL (NEGATIVE); LEUKOCYTES URINE NEGATIVE (NEGATIVE); NITRITE URINE NEGATIVE (NEGATIVE); PROTEIN URINE TRACE mg/dL (NEGATIVE); SP GRAVITY URINE 1.011; TURBIDITY URINE CLEAR (CLEAR); UROBILINOGEN URINE 4 mg/dL (NORMAL)
[2018-07-10 07:07] LABS: UR EPITHELIAL CELLS <10 /HPF (<10); URINE BACTERIA NEGATIVE /HPF; URINE RBC <10 /HPF (<10); URINE WBC <10 /HPF (<10)
--- NOTE | 2018-07-10 07:22 | Diag Imaging Result Doc PS360 ---
EXAM: CHEST-PORTABLE INDICATION: routine TECHNIQUE: One view COMPARISON: 07/09/2018 FINDINGS: Support tubes and lines are in stable positions. Central vasculature is mildly prominent suggesting mild pulmonary venous congestion. It is approximately stable. No new consolidation is identified. Cardiac silhouette is stable. IMPRESSION: Essentially stable chest. Electronically signed by Konstantin Shabazz 07/10/2018 7:20 AM
--- NOTE | 2018-07-10 07:50 | Diag Imaging Result Doc PS360 ---
EXAM: CHEST-1 VIEW HISTORY: verify placement of IJ cath TECHNIQUE: Portable chest single view COMPARISON: Film taken earlier at 9:59 PM on 07/09/2018 FINDINGS: Interval placement of a left jugular line. The tip overlies the superior vena cava near the right atrium. No pneumothorax. No other interval change. IMPRESSION: No postprocedural pneumothorax. Electronically signed by Adan Olea 07/10/2018 7:48 AM
[2018-07-10] MEDS: IMDUR PO SCH (08:05)
[2018-07-10] MEDS: LOPRESSOR PO SCH ×2 (08:05→20:01)
[2018-07-10 08:20] LABS: HEMATOCRIT 29.9 % (42.0-52.0); HEMOGLOBIN 9.6 g/dL (14.0-18.0)
[2018-07-10] MEDS: ATIVAN IV PRN ×5 (08:28→21:35)
[2018-07-10] MEDS: NICODERM PATCH TD SCH (08:28)
--- NOTE | 2018-07-10 08:30 | EKG Report ---
Test Performed on : 07/10/2018 00:08:36 AM Test Reason : cardiac arrest Blood Pressure : / mmHG Vent. Rate : 091 BPM Atrial Rate : 091 BPM P-R Int : 122 ms QRS Dur : 114 ms QT Int : 406 ms P-R-T Axes : 065 -42 078 degrees QTc Int : 499 ms Normal sinus rhythm. Left axis deviation Right bundle branch block Anteroseptal infarct (cited on or before 07-JAN-2009) Abnormal ECG When compared with ECG of 08-JUL-2018 09:28, (Unconfirmed) QRS voltage has decreased Questionable change in initial forces of Anteroseptal leads Unconfirmed Result
[2018-07-10 08:39] LABS: ESTIMATED GFR > 60
[2018-07-10 08:55] LABS: AGAP 13; ALB/GLOB RATIO 0.6; ALBUMIN 1.8 g/dL (3.5-5.0); ALKALINE PHOSPHATASE 175 U/L (32-122); BUN 25 mg/dL (8-22); CALCIUM 7.9 mg/dL (8.8-10.2); CHLORIDE 109 mmol/L (98-107); COSMO 300; CREATININE 0.6 mg/dL (0.7-1.2); GLUCOSE 119 mg/dL (70-104); GOT 466 U/L (10-34); GPT 247 U/L (10-44); MAGNESIUM 1.5 mg/dL (1.5-2.7); POTASSIUM 3.7 mmol/L (3.5-5.1); SODIUM 148 mmol/L (136-145); TCO2 26 mmol/L (25-35); TOTAL BILIRUBIN 0.98 mg/dL (0.20-1.00); TOTAL PROTEIN 4.6 g/dL (6.3-8.3)
[2018-07-10] MEDS ORDERED: LOVENOX SUBQ SCH (09:00)
[2018-07-10] MEDS ORDERED: MAGNESIUM SULFATE 4 GM/S.W.I. 4 GM/100 ML IVPB IV ONE (09:10)
[2018-07-10] MEDS ORDERED: LEVOPHED 8 MG in D5 1/2 NS 250 ML IV SCH (09:15)
--- NOTE | 2018-07-10 10:00 | PULMONOLOGY CONSULTATION ---
DATE: 07/10/2018 INCOMPLETE REPORT-DICTATION STARTS HERE REASON FOR CONSULTATION: Cardiopulmonary arrest. HISTORY OF PRESENT ILLNESS: Mr. Bullard is a 58-year-old white male with extensive alcohol use, diagnosis of lupus, who was admitted to the hospital 07/08/2018 with episode of hematemesis and acute alcoholic pancreatitis. CT scan of the abdomen revealed severe hepatic steatosis along with inflammatory changes around the pancreas. The patient was undergoing resuscitation. The patient was on a cardiac floor when he developed bradycardia and asystole requiring advanced cardiac life support. Time of CPR approximately 5 minutes. The patient was intubated and transferred to the intensive care unit. He now does open his eyes, but does not follow commands. He is moving all extremities. He is on vasopressors for hypotension. He has been intubated and initiated on mechanical ventilation. PAST MEDICAL HISTORY/PROBLEM LIST: 1. Systemic lupus erythematosus by report. 2. Long history of alcohol abuse. EHR locked up. See completed dictation to follow. cc: MD Dylan Bess MD MTDD
[2018-07-10] MEDS: LR 1,000 ML IV SCH ×3 (10:01→22:00)
[2018-07-10] MEDS: ALBUMIN 25% IV SCH ×4 (10:01→23:54)
[2018-07-10] MEDS: NS 500 ML IV SCH (10:02)
--- NOTE | 2018-07-10 10:24 | HISTORY AND PHYSICAL ---
Continuation of Pulmonary/Critical Care consultation PAST MEDICAL HISTORY: 1. Coronary artery disease with prior myocardial infarction. 2. Dyslipidemia. 3. History of stroke in May. SOCIAL HISTORY: Ongoing tobacco use, 1 pack per day. Ongoing alcohol use. No drug use listed. REVIEW OF SYSTEMS: Cannot be obtained. PHYSICAL EXAMINATION: GENERAL: Reveals a thin, chronically ill-appearing male who appears older than his stated age of 58. Currently on dopamine for blood pressure support. VITAL SIGNS: Heart rate 120, blood pressure 80/53, respiratory rate 18, oxygen saturation 96%. HEENT: Pupils are equal and reactive. Oropharynx appears dry. NECK: Supple. CHEST: Reveals rhonchi bilaterally. CARDIAC: S1, S2. ABDOMEN: Mildly distended with decreased bowel sounds. No evidence of compartment syndrome. EXTREMITIES: Cool to the touch. LABORATORIES: Chest x-ray reveals prominent vasculature with no dense infiltrates. White blood count 4.77, hemoglobin 9.5, platelet count 122,000. Chemistry: Sodium 148, potassium 3.7, chloride 109, bicarbonate 26, BUN 25, creatinine 0.6, phosphorus 1.0, magnesium 1.5, AST 466, ALT 247, alkaline phosphatase 175, total protein 4.6, albumin 1.8. Arterial blood gas on 50% mechanical ventilation, pH 7.38, pCO2 of 49, PO2 of 72 with a lactate of 1.9. IMPRESSION: A 48-year-old with tobacco use, alcohol use, with alcoholic pancreatitis, status post cardiopulmonary arrest, acute hypoxemic and hypercapnic respiratory failure, pancreatitis with hemodynamic shock, hypophosphatemia, protein calorie malnutrition, steatotic hepatosis, alcoholic hepatitis, with prior cardiac history and strokes. PLAN: 1. Continue full ventilatory support. 2. Continue volume resuscitation. 3. Will use albumin for volume expansion. 4. Anticipate the need for nutrition in the near future with refeeding syndrome. 5. Replace magnesium and phosphorus. 6. Anticipate alcohol withdrawal, which should be easier to medicate while on mechanical ventilation. 7. Routine gastric acid suppression. 8. CVP monitoring to help gauge resuscitation. 9. Continue gastric acid suppression. 10. Overall guarded prognosis. cc: MD Dylan Bess MD MTDD
[2018-07-10] MEDS: MORPHINE IV PRN ×4 (10:41→21:34)
[2018-07-10] MEDS ORDERED: POTASSIUM PHOSPHATE 40 MMOL in NS 250 ML IV ONE (11:00)
[2018-07-10 12:42] LABS: HEPATITIS PROFILE ACUTE SEE COMMENTS
[2018-07-10 14:48] LABS: HEMATOCRIT 24.6 % (42.0-52.0); HEMOGLOBIN 7.8 g/dL (14.0-18.0)
[2018-07-10] MEDS: TYLENOL PR PRN (15:21)
[2018-07-10] MEDS: ZOSYN 3.375 GM in NS 50 ML IV SCH ×2 (15:21→21:45)
[2018-07-10 15:28] LABS: CK INDEX 4.2 (0.0-2.5); CK-MB 18.63 ng/mL (0.0-5.0)
[2018-07-10] MEDS ORDERED: NS 250 ML IV ONE (16:00)
--- NOTE | 2018-07-10 18:24 | PROGRESS NOTE ---
DATE: 07/10/2018 SUBJECTIVE: Mr. Roy is doing fair. Patient is still on the ventilator. The patient spiked fever to 101.2 degrees. We did blood cultures and started patient on IV antibiotics. The patient is on rectal Tylenol and some cold sponges. OBJECTIVE: General: The patient is sedated. Vital Signs: Noted. Neck: Supple. Lungs: Decreased air entry in both the bases. CVS: S1 and S2 heard. Tachycardia. Abdomen: Soft. Nontender. Bowel sounds hypoactive. 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 CONSIDERATION: 1. Acute respiratory failure. 2. Status post cardiac arrest. 3. Acute pancreatitis. 4. Anemia. 5. Alcohol abuse. 6. History of coronary artery disease. Appreciate Dr. Davila's help in managing this critically ill patient. I did try to call patient's family, but no answer. His last hemoglobin and hematocrit were 7.8 and hematocrit 24.6. I ordered 2 units of packed RBCs. Continue rest of the treatment and close observation. cc: MD Dylan Richard MD
[2018-07-10] MEDS: M.V.I.-12 10 ML, FOLIC ACID 1 MG, MAGNESIUM SULFATE 1 GM, THIAMINE 100 MG in NS 1,000 ML IV SCH (19:40)
[2018-07-10] MEDS: SODIUM CHLORIDE 0.9% INJ SCH (19:56)
[2018-07-10 23:09] LABS: HEMATOCRIT 32.3 % (42.0-52.0); HEMOGLOBIN 10.6 g/dL (14.0-18.0)
[2018-07-11 00:24] LABS: CK INDEX 2.6 (0.0-2.5); CK-MB 14.23 ng/mL (0.0-5.0)
[2018-07-11] MEDS: ZOSYN 3.375 GM in NS 50 ML IV SCH ×6 (02:44→21:21)
[2018-07-11] MEDS: CARAFATE LIQUID PO SCH ×4 (02:45→19:55)
[2018-07-11 05:23] LABS: HEMATOCRIT 29.8 % (42.0-52.0); MCH 31.8 PG (27-31); MCHC 33.6 g/dL (33-37); MCV 94.9 FL (81-99); MPV 11.9 FL (7.4-10.4); RBC 3.14 XMIL (4.7-6.1); RDW 17.7 % (11.5-14.5); WBC 8.48 X1000 (4.8-10.8)
[2018-07-11 05:24] LABS: ALLEN TEST YES; BE 3.4 mmoll (-3.0-3.0); BLOOD TYPE ARTERIAL; HCO3-(ACT) 27.6 mmoll (20.0-26.0); METHB 1.3 % (0.0-1.5); O2(CT) 14.2 mL/dL (15.0-23.0); O2HB 96.3 % (95.0-99.0); PCO2(98.6) 35 mmHg (35-45); PO2(98.6) 123 mmHg (60-100); SAMPLE BLOOD; SRATE 14 BPM; THB 10.3 g/dL (11.5-17.4); TVOL 600 mL; pH(98.6) 7.49 (7.35-7.45)
[2018-07-11 05:26] LABS: MODALITY VENTILATOR
[2018-07-11 06:09] LABS: AGAP 12; ALB/GLOB RATIO 1.4; ALBUMIN 2.8 g/dL (3.5-5.0); ALKALINE PHOSPHATASE 111 U/L (32-122); BUN 14 mg/dL (8-22); CALCIUM 8.3 mg/dL (8.8-10.2); CHLORIDE 116 mmol/L (98-107); COSMO 306; CREATININE 0.4 mg/dL (0.7-1.2); ESTIMATED GFR > 60; GLUCOSE 95 mg/dL (70-104); GOT 204 U/L (10-34); GPT 143 U/L (10-44); SODIUM 154 mmol/L (136-145); TCO2 26 mmol/L (25-35); TOTAL BILIRUBIN 1.82 mg/dL (0.20-1.00); TOTAL PROTEIN 4.8 g/dL (6.3-8.3)
[2018-07-11] MEDS: LIBRIUM PO SCH ×3 (06:09→20:03)
[2018-07-11] MEDS: ATIVAN IV PRN ×2 (06:13→22:27)
[2018-07-11] MEDS: MORPHINE IV PRN ×3 (06:13→19:55)
[2018-07-11 06:19] LABS: MAGNESIUM 2.1 mg/dL (1.5-2.7)
[2018-07-11] MEDS: LR 1,000 ML IV SCH (06:23)
[2018-07-11] MEDS: PROTONIX IV SCH ×2 (06:50→19:55)
[2018-07-11] MEDS: SODIUM CHLORIDE 0.9% INJ SCH (06:51)
[2018-07-11] MEDS ORDERED: POTASSIUM PHOSPHATE 30 MMOL in NS 250 ML IV ONE (06:57)
--- NOTE | 2018-07-11 07:34 | PROGRESS NOTE ---
DATE: 07/11/2018 SUBJECTIVE: Mr. Bullard is doing fair. The patient is on ventilator status post cardiopulmonary arrest. Patient had a fever yesterday. We did septic workup. The patient is on IV antibiotics. He did receive 2 units of packed RBC. The patient is sedated. No nausea, vomiting. No seizure- type episode. History part was limited. OBJECTIVE: Vital signs: Blood pressure 106/67, pulse 68, temperature 98.1 degrees. HEENT: The patient's left eye has upward gaze. Neck: Supple. Chest: Decreased air entry both the bases. Cardiovascular: S1 and S2 heard. Abdomen: Soft. No distention. Bowel sounds hypoactive. Extremities: No cyanosis, clubbing. No acute DVT. Central nervous system: Patient is sedated, uncooperative for detailed exam. CONSIDERATION: Status post cardiopulmonary arrest, acute pancreatitis, blood-loss anemia. The patient does have hypophosphatemia, alcohol abuse, history of coronary artery disease. The patient does have upward gaze in his left eye. I am not sure whether patient had cerebrovascular accident. I am going to get CT scan of the brain for further evaluation. Overall prognosis fair to guarded. Lab data did reveal hypophosphatemia. I am going to supplement phosphorus. Blood gas results reviewed. The patient does have hypokalemia, BUN 14, creatinine 0.4. Liver enzymes improving. Amylase yesterday was 88, lipase 269. Hepatitis panel was negative. cc: MD Dylan Richard MD
--- NOTE | 2018-07-11 07:49 | Diag Imaging Result Doc PS360 ---
EXAM: CHEST-PORTABLE INDICATION: respiratory failure TECHNIQUE: One view COMPARISON: 07/10/2018 FINDINGS: Support tubes and lines are in stable positions. There is stable pulmonary venous congestion. No new consolidation is identified. Silhouette is stable IMPRESSION: Stable chest. Electronically signed by Konstantin Shabazz 07/11/2018 7:47 AM
[2018-07-11] MEDS: NS 500 ML IV SCH ×2 (07:51→08:50)
[2018-07-11 08:36] LABS: HEMATOCRIT 31.3 % (42.0-52.0); HEMOGLOBIN 10.4 g/dL (14.0-18.0)
--- NOTE | 2018-07-11 08:40 | Diag Imaging Result Doc PS360 ---
EXAM: CT HEAD W/O CONTRAST 07/11/2018 HISTORY: headache TECHNIQUE: This exam was performed using automated exposure control, adjustment of mA or kV according to patient size, and/or use of iterative reconstruction technique. COMMENT: There are endotracheal and NG tubes. There is mild cerebral and cerebellar atrophy. There is encephalomalacia in the left frontal lobe and anterior temporal lobe. There is no evidence of bleed or abnormal extra-axial fluid collection. Compared to 05/24/2018 the appearance the brain has not changed significantly. There are air-fluid levels in the sphenoid sinuses bilaterally and in the right maxillary and several of the right ethmoid air cells. This was not the case on the previous examination. IMPRESSION: 1. Chronic encephalomalacic and atrophic changes. 2. Bilateral sphenoid, and right ethmoid and maxillary sinusitis. Electronically signed by Yimi Khan 07/11/2018 8:38 AM
--- NOTE | 2018-07-11 08:48 | NEPHROLOGY CONSULTATION ---
DATE: 07/11/2018 REASON FOR CONSULTATION: Electrolyte abnormalities. ATTENDING PHYSICIAN: Dr. Espino, but consulting physician was Dr. Lobo. HISTORY OF PRESENT ILLNESS: Mr. Bullard is a 58-year-old man with chronic alcoholism. He was admitted on July 08 with acute alcoholic pancreatitis. He also had hematemesis and gastritis. He required intubation immediately. His initial data found marked metabolic acidosis as well as respiratory acidosis, shock, hypotension, elevated transaminases, BUN of 49, creatinine of 2.8. Since that time, he has been treated with aggressive volume resuscitation and he is 8 L positive overall, but made 1.5 L of urine in the last 24 hours. In this context, his creatinine has normalized to 0.4 and his acid-base balance has improved dramatically as well. Serum bicarbonate today is 26 with an anion gap of 12. However, overnight he has developed hypophosphatemia with a serum phosphorus of 1, 1.8 on presentation, and he also has progressive hypernatremia with sodium 154 today. He is receiving lactated Ringer's, and he has been treated with supplemental potassium phosphate by Dr. Espino this morning. He received a dose yesterday as well as ordered by Dr. Davila. PAST MEDICAL HISTORY: As above. He also has a history of hypertension and a history of cerebrovascular disease. CURRENT MEDICATIONS: Sucralfate, acetaminophen, chlordiazepoxide (Librium), isosorbide, norepinephrine, lorazepam, lactated Ringer's, metoprolol, morphine, multivitamin, Pantoprazole, potassium phosphate, Zosyn. ALLERGIES: None. SOCIAL HISTORY/FAMILY HISTORY/REVIEW OF SYSTEMS: Cannot be obtained except as listed in the initial notes. OBJECTIVE: Vitals: Blood pressure 109/72, heart rate 69, respirations 14. Afebrile. Temperature maximum 101.3 degrees. General: Sedated, unresponsive, dysconjugate gaze. Skin: Warm and dry. HEENT: Conjunctivae are pink. Oropharynx is dry. Neck: Neck veins are not distended. Heart: PMI is hyperdynamic. Regular rate and rhythm with a systolic murmur present. Lungs: Coarse breath sounds with a few scattered crackles. Abdomen: Mildly distended, but soft with decreased bowel sounds. No organomegaly. Extremities: Trace edema. No clubbing or cyanosis. INPUT AND OUTPUT: Intake 5.3 L. Output 1.5 L. IMPRESSION: 1. Acute kidney injury secondary to pancreatitis, resolved. 2. Hypernatremia. I will adjust his IV fluids to provide more free water. 3. Hypophosphatemia. This has been treated appropriately and I will follow his data later today and continue repletion as appropriate. 4. Hypokalemia. This also has been addressed, and we will recheck his laboratories. cc: MD Dylan Payan MD
[2018-07-11] MEDS: LOPRESSOR PO SCH ×3 (08:50→20:02)
[2018-07-11] MEDS: IMDUR PO SCH (08:50)
[2018-07-11] MEDS: D5 1/2 NS 1,000 ML IV SCH ×2 (08:51→16:05)
--- NOTE | 2018-07-11 11:13 | PROVIDER PROGRESS NOTE ---
Progress Note SUBJECTIVE: No acute overnight events. Patient is not on sedation and wakes up and follows commands appropriately. No transfusion requirements. OGT output decreasing. Coffee grounds in reservoir. Unable to obtain adequate ROS since intubated. Minimal vent settings. No BMs. OBJECTIVE: Last Vital Signs Temp 98.7 F 07/11/18 08:00 Pulse 87 07/11/18 08:48 Resp 16 07/11/18 08:00 BP 110/76 07/11/18 08:48 Pulse Ox 98 07/11/18 08:48 Height 5 ft 10 in Weight 133 lb 6.4 oz GEN: awake, alert, follows commands HEENT: anicteric, ET in place NECK: supple, no JVD CV: RRR, no murmurs PULM: vented BS, no wheezing ABD: nondistended, NT, BS present, no rebound or guarding EXT: no cce NEURO: moves all extremities on command; no asterixis LABS: 07/11/18 07/11/18 05:09 05:09 WBC 8.48 Hgb 10.0 L Plt Count 99 L Sodium 154 H Potassium 3.0 L D Chloride 116 H Carbon Dioxide 26 BUN 14 Creatinine 0.4 L Total Bilirubin 1.82 H AST 204 H ALT 143 H Alkaline Phosphatase 111 Total Protein 4.8 L Albumin 2.8 L Mr. Parag Bullard is a 58 year old man admitted with acute alcoholic pancreatitis and hematemesis. His course complicated by PEA arrest, acute hypoxemic and hypercapnic respiratory failure, and shock requiring pressors. Labs and imaging also notable for protein calorie malnutrition, steatotic hepatosis, hypophosphatemia, thrombocytopenia, hypernatremia. Renal function preserved. Transfused 2 units pRBC yesterday without response #Coffee ground emesis; ddx includes esophagitis, gastritis, duodenitis, PUD; less likely varices - continue IV PPI BID - holding blood thinners, NSAIDs - keep NPO after MN for diagnostic EGD tomorrow with Dr. Tejeda #Shock: wean pressors to maintain MAPS >=65, trending H/H, transfuse prn goal hgb 7-8, IVFs, empiric abx as per primary #Alcoholic pancreatitis: continue IVFs, NPO status, and analgesics as needed #Elevated LFTs: from ischemic liver injury; improving: trending LFTs #Hepatic steatosis: 2/2 to ROSA M #Refeeding syndrome: replete phosphorus, K #Hypernatremia: replace free water deficit #Protein calorie malnutrition: consider clinimix while patient is NPO #NSTEMI: likely demand; mgmt as per primary; consider ECHO #Thrombocytopenia: new onset; platelets >150K on admission; defer to primary Will follow with you. Please call with questions
--- NOTE | 2018-07-11 11:21 | PULMONOLOGY PROGRESS NOTE ---
DATE: 07/11/2018 SUBJECTIVE: The patient remains sedated on mechanical ventilation. Vasopressors have been markedly reduced and may actually be on standby at the moment. He does not respond to painful stimuli. OBJECTIVE: Vital signs: Intake over the last 24 hours 5311 mL, output 1460 mL. CVP is 12, blood pressure 106/69, heart rate 81, respiratory rate 16, oxygen saturation 98%. HEENT: Pupils are midpoint to small and reactive. Oropharynx appears dry. Neck: Supple. Chest: Reveals coarse rhonchi bilaterally. Abdomen: Slightly full but not overtly distended. Extremities: Remain cool to the touch. DIAGNOSTIC DATA: CT scan of the head reveals chronic atrophic changes and sinusitis. Chest x-ray reveals generous cardiac silhouette, endotracheal tube in good position, mild venous congestion. LABORATORY DATA: White blood count 8.48, hemoglobin 10.0, platelet count 99,000. Chemistry: Sodium 154, potassium 3.4, chloride 116, BUN 14, creatinine 0.4. Phosphorus 1.0, magnesium 2.1. Bilirubin 1.8, AST 204, ALT 143, total protein 4.8, albumin 2.8. IMPRESSION: A 58-year-old with tobacco use and chronic alcohol use with: 1. Alcoholic pancreatitis. 2. Acute hypoxemic and hypercapnic respiratory failure. 3. Status post cardiopulmonary arrest. 4. Hypophosphatemia despite significant replacement yesterday. 5. Acute renal failure which is resolving. 6. Hemodynamic shock which is improving. 7. Alcoholic hepatitis with improvement. 8. Hypernatremia. RECOMMENDATION: 1. Continue full ventilatory support. 2. Electrolyte adjustments per Nephrology. 3. Continue to replace magnesium and phosphorus as necessary. 4. Consider tube feeds with resolution of shock. 5. Routine gastric acid suppression. 6. Education about the need to discontinue alcohol and tobacco if the patient survives this acute event. TIME SPENT IN CRITICAL CARE MANAGEMENT: 30+ minutes. cc: MD Dylan Bess MD
[2018-07-11 14:11] LABS: HEMOGLOBIN 10.7 g/dL (14.0-18.0)
[2018-07-11 14:58] LABS: AGAP 13; ALBUMIN 2.9 g/dL (3.5-5.0); BUN 3 mg/dL (8-22); CALCIUM 7.9 mg/dL (8.8-10.2); CHLORIDE 111 mmol/L (98-107); COSMO 296; CREATININE 0.4 mg/dL (0.7-1.2); ESTIMATED GFR > 60; GLUCOSE 129 mg/dL (70-104); POTASSIUM 3.6 mmol/L (3.5-5.1); SODIUM 150 mmol/L (136-145); TCO2 26 mmol/L (25-35)
--- NOTE | 2018-07-11 17:14 | ECHO REPORT ---
ORDER DATE: 07/09/2018 INTERPRETING PHYSICIAN: Darrel Hernandez MD ECHOCARDIOGRAPHIC MEASUREMENTS: Interventricular septum 1.2 cm. Left ventricular posterior wall 1.0 cm. Diastolic diameter 4.2 cm. Left atrium 3.1 cm. Aorta 2.8 cm. SUMMARY OF THE 2-DIMENSIONAL IMAGING: Aortic valve leaflets are trileaflet. Pulmonic valve not well visualized. Mitral valve was normal. Tricuspid valve was normal. Technically suboptimal study. Poor acoustic window. There was trace mitral regurgitation. Peak velocity across the aortic valve less than 2 m/sec. There is no aortic stenosis or regurgitation. Peak velocity across the tricuspid valve less than 2 m/sec. There is trace tricuspid regurgitation. Optison was used to assess left ventricular systolic function. Normal left ventricular cavity size. Estimated ejection fraction of 60%. There is no pericardial effusion. There is mild left ventricular hypertrophy. There is no obvious intracardiac mass or thrombus seen. cc: MD Jermaine Velasco MD Robert Allen, MD
[2018-07-11] MEDS: M.V.I.-12 10 ML, FOLIC ACID 1 MG, MAGNESIUM SULFATE 1 GM, THIAMINE 100 MG in NS 1,000 ML IV SCH (18:29)
[2018-07-11 20:41] LABS: HEMATOCRIT 32.3 % (42.0-52.0); HEMOGLOBIN 10.7 g/dL (14.0-18.0)
[2018-07-12] MEDS: CARAFATE LIQUID PO SCH ×4 (03:48→20:29)
[2018-07-12] MEDS: D5 1/2 NS 1,000 ML IV SCH ×2 (03:48→08:53)
[2018-07-12] MEDS: ZOSYN 3.375 GM in NS 50 ML IV SCH ×5 (03:50→20:31)
[2018-07-12 04:10] LABS: HEMATOCRIT 31.6 % (42.0-52.0); HEMOGLOBIN 10.4 g/dL (14.0-18.0)
[2018-07-12 04:37] LABS: ALLEN TEST YES; BE 4.8 mmoll (-3.0-3.0); BLOOD TYPE ARTERIAL; HCO3-(ACT) 28.7 mmoll (20.0-26.0); METHB 1.1 % (0.0-1.5); O2(CT) 14.9 mL/dL (15.0-23.0); O2HB 96.6 % (95.0-99.0); PCO2(98.6) 35 mmHg (35-45); PO2(98.6) 120 mmHg (60-100); SAMPLE BLOOD; SAO2 99.7 % (95.0-100.0); SRATE 16 BPM; THB 10.8 g/dL (11.5-17.4); TVOL 500 mL; pH(98.6) 7.51 (7.35-7.45)
[2018-07-12 04:38] LABS: MODALITY VENTILATOR
[2018-07-12] MEDS: TYLENOL PR PRN (04:50)
[2018-07-12 04:58] LABS: HEMATOCRIT 31.6 % (42.0-52.0); HEMOGLOBIN 10.3 g/dL (14.0-18.0); MCH 31.4 PG (27-31); MCHC 32.6 g/dL (33-37); MCV 96.3 FL (81-99); MPV 11.9 FL (7.4-10.4); RBC 3.28 XMIL (4.7-6.1); RDW 18.7 % (11.5-14.5); WBC 11.29 X1000 (4.8-10.8)
[2018-07-12] MEDS: LIBRIUM PO SCH ×3 (05:11→22:02)
[2018-07-12 05:29] LABS: AGAP 11; ALB/GLOB RATIO 0.9; ALBUMIN 2.2 g/dL (3.5-5.0); ALKALINE PHOSPHATASE 139 U/L (32-122); BUN 11 mg/dL (8-22); CALCIUM 7.8 mg/dL (8.8-10.2); CHLORIDE 114 mmol/L (98-107); COSMO 300; CREATININE 0.4 mg/dL (0.7-1.2); ESTIMATED GFR > 60; GLUCOSE 119 mg/dL (70-104); GOT 118 U/L (10-34); GPT 112 U/L (10-44); MAGNESIUM 1.7 mg/dL (1.5-2.7); PHOSPHORUS 2.2 mg/dL (2.7-4.5); POTASSIUM 2.9 mmol/L (3.5-5.1); SODIUM 151 mmol/L (136-145); TCO2 26 mmol/L (25-35); TOTAL BILIRUBIN 0.86 mg/dL (0.20-1.00); TOTAL PROTEIN 4.6 g/dL (6.3-8.3)
[2018-07-12] MEDS: MORPHINE IV PRN ×4 (05:33→22:27)
--- NOTE | 2018-07-12 07:39 | Diag Imaging Result Doc PS360 ---
EXAM: CHEST-PORTABLE 07/12/2018 HISTORY: respiratory failure TECHNIQUE: AP portable at 0524 COMMENT: There is an endotracheal tube with its tip at thoracic inlet. There is an NG tube with its tip in the stomach. There is dense opacification of the left lower lobe and hazy opacity elsewhere in both lungs consistent with pulmonary edema. Compared to 07/11/2018 the interstitial opacities are slightly worse in the opacification of the left lower lobe is worse with complete obscuration of the hemidiaphragm. IMPRESSION: Slightly worsened pulmonary edema. Worsened atelectasis or pneumonia left lower lobe. Electronically signed by Yimi Khan 07/12/2018 7:36 AM
--- NOTE | 2018-07-12 07:42 | PROGRESS NOTE ---
DATE: 07/12/2018 SUBJECTIVE: Mr. Bullard seems to be doing better. He is awake, seems to be trying to answer questions. Patient is still on the ventilator. No high-grade fever or chills. No nausea or vomiting. The patient has an NG tube. No seizure-type episode. OBJECTIVE: Vital Signs: Noted. Neck: Supple. No JVD. Lungs: Bibasilar crepitations. Heart: S1 and S2 heard. Abdomen: Soft, globular. Bowel sounds present. 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 Uncooperative for detailed exam. Laboratory Data: I did CT scan of the head yesterday which did reveal chronic encephalomalacia and atrophic changes, bilateral sphenoidal and right ethmoidal and maxillary sinusitis. Laboratory data done today, hemoglobin 10.4, hematocrit 31.6. Blood gas results reviewed. His potassium was 2.9, BUN 11, creatinine 0.4. Overall, patient is doing fair. PROBLEM LIST: 1. Acute pancreatitis. Seems to be getting better. 2. Alcoholic liver disease. 3. Possible cirrhosis of the liver. 4. Respiratory failure, status post mechanical ventilation. 5. Hypokalemia. We will supplement potassium. 6. Hypophosphatemia. PLAN: Overall, the patient is doing fair. Continue current treatment and close observation. Blood culture so far no growth. cc: MD Dylan Richard MD
[2018-07-12] MEDS: IMDUR PO SCH (08:00)
[2018-07-12] MEDS: LOPRESSOR PO SCH ×2 (08:01→22:02)
[2018-07-12 08:06] LABS: HEMATOCRIT 32.1 % (42.0-52.0); HEMOGLOBIN 10.5 g/dL (14.0-18.0)
[2018-07-12] MEDS ORDERED: ALBUMIN 25% IV ONE (08:51)
[2018-07-12] MEDS: NS 500 ML IV SCH (09:04)
[2018-07-12] MEDS: PROTONIX IV SCH ×2 (09:05→20:25)
[2018-07-12] MEDS: POTASSIUM CHLORIDE 20 MEQ/SWI 20 MEQ/100 ML IVPB IV SCH ×2 (09:05→10:53)
[2018-07-12] MEDS ORDERED: VERSED ONE (09:38)
[2018-07-12] MEDS ORDERED: KETAMINE ONE (09:39)
[2018-07-12] MEDS: ATIVAN IV PRN ×2 (10:53→15:04)
[2018-07-12] MEDS: LASIX IV SCH ×2 (11:09→18:04)
[2018-07-12] MEDS: D5W 1,000 ML IV SCH (11:11)
[2018-07-12] MEDS: CLINIMIX E 4.25%-5% SOLUTION 1,000 ML IV SCH (11:11)
--- NOTE | 2018-07-12 11:17 | OPERATIVE NOTE ---
PROCEDURE DATE: 07/12/2018 REQUESTING PHYSICIAN: Surjit Espino MD TITLE OF PROCEDURE: Esophagogastroduodenoscopy. PREOPERATIVE DIAGNOSES: 1. History of hematemesis. 2. Alcoholism. 3. Alcoholic pancreatitis. 4. Respiratory failure. He is intubated, vented in ICU bed 5. 5. Electrolyte imbalance, including hypokalemia, hypophosphatemia, hypernatremia. POSTOPERATIVE DIAGNOSES: 1. Severe esophagitis, distal esophagus, LA grade 4. 2. Z-line was at 44 cm. 3. Evidence of bile in the stomach. 4. Evidence of ulcer in the body of the stomach, likely from NG tube trauma. 5. Normal fundus, cardia, incisura. 6. Normal duodenal bulb and second portion of the duodenum. ESTIMATED BLOOD LOSS: None. COMPLICATIONS: None. ANESTHESIA: Monitored anesthesia care by the anesthesiologist. SPECIMENS: None. PROCEDURE: After informed consent from the patient's family, explaining the risks, benefits, indications, and alternatives to the procedure, the patient was prepared for EGD in ICU bed 5. The patient was kept in supine position. He was intubated and vented. Anesthesia provided the sedation. After adequate sedation, the upper scope was introduced through the oral orifice and advanced to the second portion of duodenum. The esophagus showed evidence of erythema, friability, and erosions in the middle esophagus. The distal esophagus showed evidence of erythema and ulceration diffuse in a circumferential manner in the distal esophagus, suggesting grade 4 esophagitis, LA grade 4. Z- line was at 44 cm. The stomach showed evidence of bile in the stomach, which was suctioned out. The NG tube was removed. We saw an ulceration in the body of the stomach, likely from NG tube trauma. On retroflexion, there was normal fundus, cardia, and incisura. There was no evidence of any active bleeding at the ulcer site. The duodenal bulb and second portion of the duodenum appeared normal. The air and scope were withdrawn. Again, the esophagus carefully examined. There was no evidence of any visible varices, although it is hard to tell as the patient has severe esophagitis in the distal esophagus. The air and scope were withdrawn. The patient tolerated the procedure well ad is being monitored in the ICU in stable condition. RECOMMENDATIONS: 1. The patient will be on Protonix twice daily. 2. We will transfuse as needed if hematocrit goes below 23%. 3. We will continue IV fluids as he has pancreatitis. 4. We will start him on nutrition with Clinimix at 70 mL/h, if okay with Dr. Davila and the primary care team. The patient has electrolyte imbalance, so Nephrology is on board, so we will await their approval before starting nutrition. 5. He will continue to be watched for withdrawal. 6. Further recommendations to follow pending the hospital course. The above plan was discussed with the patient's nurse at bedside and all questions were answered. Please call us with any further questions. We tried to call patient's daughter and left a message. cc: MD Dylan Galeano MD MTDD
[2018-07-12] MEDS ORDERED: POTASSIUM PHOSPHATE 30 MMOL in NS 250 ML IV ONE (14:00)
--- NOTE | 2018-07-12 14:51 | NEPHROLOGY PROGRESS NOTE ---
DATE: 07/12/2018 TIME SEEN: 0640. SUBJECTIVE: Mr. Bullard is resting quietly in bed. He remains ventilator- dependent. OBJECTIVE: Vital Signs: His most recent vital signs are temperature of 100.2 degrees, blood pressure 106/67, heart rate 92, respirations 21. He is on 30% FiO2. Last recorded saturation is 97%. He has had 3720 in and 1850 out to Lyn catheter. Labs: Sodium 151, potassium 2.9, chloride is 114, CO2 26, BUN 11, creatinine 0.4, glucose 119, his anion gap is 11, calcium 7.8, phosphorus 2.2, albumin 2.2, magnesium 0.86. White count 11.29, hemoglobin 10.3, hematocrit 31.6, with a platelet count of 130,000. ABGs: PH 7.5, CO2 35, PO2 120, bicarb 28.7 on 30%. Blood cultures are negative. Physical Examination: General: This is a 58-year-old male who is currently resting quietly in bed. His skin is warm and dry. HEENT: Normocephalic, atraumatic. Conjunctivae are pale. He has ERIC. Mucous membranes are dry. Oral ET tube remains in place. Neck: Supple. Trachea midline. No evidence of JVD. Cardiovascular: He has coarse breath sounds bilateral with crackles to the posterior right base. Remains on O2 support. Abdomen: Firm, nontender. Decreased bowel sounds. Genitourinary: Not inspected. Adequate urine out to Lyn catheter. Extremities: Have trace edema. Neurological: As above. ASSESSMENT AND PLAN: 1. Acute kidney injury secondary to acute pancreatitis. This has remained stable over the last 48 hours. 2. Hypernatremia. The patient's intravenous fluids were changed to D5 half- normal with a small amount of correction, remains at 125. 3. Hypophosphatemia and hypokalemia. We will replace with potassium phosphate today. Re- evaluate labs in the morning. I would like to thank you for allowing us to follow with this patient. Dictated by NAMRATA Youssef for Dimitrios Barnard MD Face to face encounter, data reviewed, discussed with Marco Tobias on 07/13/18. I agree with the above assessment and plan of care. cc: OlimpiaNAMRATA Carrillo MD Robert Allen, MD [facility] HOSPITALAraceli
[2018-07-12 16:59] LABS: HEMATOCRIT 31.2 % (42.0-52.0); HEMOGLOBIN 10.1 g/dL (14.0-18.0)
[2018-07-12] MEDS: MAGNESIUM SULFATE IV SCH (18:04)
[2018-07-12] MEDS: THIAMINE IV SCH (18:04)
[2018-07-12] MEDS: FOLIC ACID IV SCH (18:04)
[2018-07-12] MEDS: NS IV SCH (18:04)
[2018-07-12] MEDS: M V I IV SCH (18:04)
[2018-07-12] MEDS ORDERED: VANCOMYCIN IV PER PHARMACY MISC SCH (18:30)
--- NOTE | 2018-07-12 18:50 | PROGRESS NOTE ---
DATE: 07/12/2018 SUBJECTIVE: I re-evaluated the patient this evening. The patient is doing fair. He does have low-grade fever. The patient underwent upper GI endoscopy. Results reviewed, also recommendations noted. When I talked to the patient, the patient was easily arousable. No nausea or vomiting. No seizure-type episode. Chest x-ray done today revealed slightly worsened pulmonary edema; worsened atelectasis or pneumonia, left lower lobe. OBJECTIVE: Vital signs noted. Lungs: Decreased air entry, both bases. Cardiovascular: S1 and S2 heard. Abdomen soft, globular. Bowel sounds present. 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 Able to move all 4 limbs. PLAN: The patient was started on Clinimix. The patient is on antibiotic Zosyn. I am going to add vancomycin. Continue the rest of the treatment and close observation. Overall prognosis fair to guarded. cc: MD Dylan Richard MD
[2018-07-12] MEDS ORDERED: VANCOMYCIN 2,000 MG in NS 500 ML IV ONE (19:00)
[2018-07-12 20:22] LABS: HEMATOCRIT 31.3 % (42.0-52.0); HEMOGLOBIN 10.2 g/dL (14.0-18.0)
[2018-07-12] MEDS: SODIUM CHLORIDE 0.9% INJ SCH (20:26)
[2018-07-12 20:41] LABS: AGAP 11; BUN 11 mg/dL (8-22); CALCIUM 8.2 mg/dL (8.8-10.2); CHLORIDE 109 mmol/L (98-107); COSMO 295; CREATININE 0.4 mg/dL (0.7-1.2); ESTIMATED GFR > 60; GLUCOSE 127 mg/dL (70-104); POTASSIUM 3.2 mmol/L (3.5-5.1); SODIUM 148 mmol/L (136-145); TCO2 28 mmol/L (25-35)
--- NOTE | 2018-07-12 21:21 | PULMONOLOGY PROGRESS NOTE ---
DATE: 07/12/2018 SUBJECTIVE: The patient is arousable. He does not follow commands. He is off Levophed. OBJECTIVE: Vital signs: BP 109/70, heart rate 91, respiratory rate 16, oxygen saturation 96%. HEENT: Pupils are equal and reactive. Oropharynx is clear. Neck: Supple. Chest: Reveals rhonchi bilaterally. Cardiac exam: S1 and S2. Abdomen: Soft. All 4 quadrants are dull to percussion. Extremities: Reveal 1+ peripheral edema. LABORATORY DATA: White blood count 11.29, hemoglobin 10.3, platelet count 130,000, sodium 151, potassium 2.9, chloride 114, bicarbonate 26, BUN 11, creatinine 0.4, AST 118, ALT 112, alkaline phosphatase 139. Chest x-ray reveals increased edema/effusions. IMPRESSION: 1. A 58-year-old with alcoholic pancreatitis. 2. Acute hypoxemic and hypercapnic respiratory failure. 3. Hypophosphatemia with partial replacement. 4. Status post cardiopulmonary arrest. 5. Resolving acute renal failure. 6. Alcoholic hepatitis. 7. Ongoing hypernatremia. 8. Esophagitis status post esophagogastroduodenoscopy with removal of nasogastric tube. RECOMMENDATIONS: 1. Ventilatory adjustments with alkalosis. 2. Increase free water and decrease saline. 3. Add Clinimix for nutrition. 4. Consider tube feeds. We will leave NG out for at least 24 hours and then consider a soft bore feeding tube. 5. Continue gastric acid suppression. 6. Alcohol and tobacco cessation education if patient survives this acute event. TIME SPENT IN CRITICAL CARE: 30+ minutes. cc: MD Dylan Bess MD
[2018-07-13] MEDS: D5W 1,000 ML IV SCH ×3 (01:35→23:08)
[2018-07-13] MEDS: CARAFATE LIQUID PO SCH ×4 (01:35→19:21)
[2018-07-13] MEDS: CLINIMIX E 4.25%-5% SOLUTION 1,000 ML IV SCH ×2 (01:35→14:05)
[2018-07-13 02:24] LABS: HEMATOCRIT 31.2 % (42.0-52.0); HEMOGLOBIN 10.3 g/dL (14.0-18.0)
[2018-07-13] MEDS: ZOSYN 3.375 GM in NS 50 ML IV SCH ×4 (02:58→20:43)
[2018-07-13] MEDS: LASIX IV SCH ×3 (02:59→17:12)
[2018-07-13 04:51] LABS: ALLEN TEST YES; BE 8.1 mmoll (-3.0-3.0); BLOOD TYPE ARTERIAL; HCO3-(ACT) 31.1 mmoll (20.0-26.0); METHB 1.2 % (0.0-1.5); O2(CT) 14.6 mL/dL (15.0-23.0); O2HB 91.6 % (95.0-99.0); PCO2(98.6) 45 mmHg (35-45); PO2(98.6) 62 mmHg (60-100); SAMPLE BLOOD; SRATE 16 BPM; THB 11.3 g/dL (11.5-17.4); TVOL 500 mL; pH(98.6) 7.47 (7.35-7.45)
[2018-07-13 04:53] LABS: MODALITY VENTILATOR
[2018-07-13] MEDS: LIBRIUM PO SCH ×3 (05:37→20:33)
[2018-07-13 06:42] LABS: HEMATOCRIT 32.2 % (42.0-52.0); HEMOGLOBIN 10.4 g/dL (14.0-18.0); MCH 32.1 PG (27-31); MCHC 32.3 g/dL (33-37); MCV 99.4 FL (81-99); MPV 12.3 FL (7.4-10.4); RBC 3.24 XMIL (4.7-6.1); RDW 18.6 % (11.5-14.5); WBC 13.21 X1000 (4.8-10.8)
--- NOTE | 2018-07-13 06:53 | Diag Imaging Result Doc PS360 ---
EXAM: CHEST-PORTABLE HISTORY: respiratory failure TECHNIQUE: Portable chest single view COMPARISON: Four 07/30/2018 FINDINGS: No change in endotracheal tube, nasogastric tube, or left jugular line. There are bilateral infiltrates as well as a small left pleural effusion. No cardiomegaly. No significant change compared the prior study. IMPRESSION: No interval improvement. Electronically signed by Adan Olea 07/13/2018 6:50 AM
[2018-07-13 07:28] LABS: AGAP 10; ALBUMIN 2.3 g/dL (3.5-5.0); ALKALINE PHOSPHATASE 165 U/L (32-122); BUN 12 mg/dL (8-22); CALCIUM 8.5 mg/dL (8.8-10.2); CHLORIDE 105 mmol/L (98-107); COSMO 291; CREATININE 0.4 mg/dL (0.7-1.2); ESTIMATED GFR > 60; GLUCOSE 116 mg/dL (70-104); GOT 80 U/L (10-34); GPT 88 U/L (10-44); POTASSIUM 2.8 mmol/L (3.5-5.1); SODIUM 146 mmol/L (136-145); TCO2 31 mmol/L (25-35); TOTAL BILIRUBIN 1.13 mg/dL (0.20-1.00); TOTAL PROTEIN 4.6 g/dL (6.3-8.3)
--- NOTE | 2018-07-13 07:48 | PROGRESS NOTE ---
DATE: 07/13/2018 SUBJECTIVE: Mr. Bullard is doing fair. The patient is still on the vent. He did not have according to nurses any major problem last night. No high-grade fever or chills. No nausea or vomiting. No major bleeding. History part was limited. OBJECTIVE: Vital signs noted. Pulse is 90, respiration 20, and temperature 133/82. Neck is supple. No JVD.Lungs: Decreased air entry both the bases. CVS: S1 and S2 heard. Abdomen: Soft and scaphoid. Bowel sounds present. 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 Able to move all 4 limbs. LABORATORY: Lab data done this morning, WBC count 13.21, hemoglobin 10.3 hematocrit 31.2, and platelet count 113,000. Blood gas pH 7.47, pCO2 45, PO2 was 62. Electrolytes results are pending. CONSIDERATION: Acute cardiopulmonary arrest status post mechanical ventilation. Acute pancreatitis. Blood-loss anemia. The patient found to have severe esophagitis. Alcohol abuse. History of coronary artery disease. PLAN: We will continue current treatment. Because of persistent fever and infiltrate on the chest x-ray, I added vancomycin yesterday. Continue rest of the treatment and close observation. cc: MD Dylan Richard MD
[2018-07-13] MEDS: PROTONIX IV SCH ×2 (07:49→20:41)
[2018-07-13] MEDS: MORPHINE IV PRN ×3 (07:50→19:46)
[2018-07-13] MEDS: IMDUR PO SCH (08:05)
[2018-07-13] MEDS: LOPRESSOR PO SCH ×2 (08:05→20:31)
[2018-07-13] MEDS: VANCOMYCIN 1,500 MG in NS 500 ML IV SCH ×2 (09:08→20:43)
[2018-07-13] MEDS: NS 500 ML IV SCH (09:09)
[2018-07-13 09:25] LABS: HEMATOCRIT 37.8 % (42.0-52.0); HEMOGLOBIN 12.3 g/dL (14.0-18.0)
[2018-07-13] MEDS ORDERED: MAGNESIUM SULFATE 4 GM/S.W.I. 4 GM/100 ML IVPB IV ONE (09:31)
[2018-07-13] MEDS: ATIVAN IV PRN (10:32)
[2018-07-13] MEDS: POTASSIUM CHLORIDE 20 MEQ/SWI 20 MEQ/100 ML IVPB IV SCH ×5 (11:25→22:46)
[2018-07-13 14:52] LABS: HEMATOCRIT 33.6 % (42.0-52.0); HEMOGLOBIN 11.1 g/dL (14.0-18.0)
[2018-07-13] MEDS: TYLENOL PR PRN (14:53)
--- NOTE | 2018-07-13 16:03 | NEPHROLOGY PROGRESS NOTE ---
DATE: 07/13/2018 SUBJECTIVE: He is more alert today. Attempting to talk, but is still intubated. OBJECTIVE: Vital Signs: Blood pressure 113/83, heart rate 92, respirations 16. Intake 4.7 L; output 5.1 L. General: On physical examination, no acute distress. Skin: Warm and dry. Eyes: Conjunctivae are pink. Neck: Neck veins are not distended. Heart: Regular. No gallops. Lungs: Equal. No crackles. Abdomen: Distended. Decreased bowel sounds. Minimally tender. Extremities: Have no edema, clubbing, or cyanosis. IMPRESSION: 1. Hypokalemia. Replace today. 2. Hypophosphatemia. Improved. No further treatment. 3. Volume status acceptable. He is receiving Lasix in an attempt to improve weaning parameters. cc: MD Dylan Payan MD
[2018-07-13] MEDS: SOLU-CORTEF IV SCH (17:12)
[2018-07-13] MEDS: M V I IV SCH (17:23)
[2018-07-13] MEDS: MAGNESIUM SULFATE IV SCH (17:23)
[2018-07-13] MEDS: THIAMINE IV SCH (17:23)
[2018-07-13] MEDS: NS IV SCH (17:23)
[2018-07-13] MEDS: FOLIC ACID IV SCH (17:23)
--- NOTE | 2018-07-13 18:45 | PULMONOLOGY PROGRESS NOTE ---
DATE: 07/13/2018 SUBJECTIVE: The patient is more arousable today. He is not following commands. OBJECTIVE: Vital Signs: Maximum temperature in the last 24 hours 100.6 degrees. Blood pressure 119/74, heart rate 104, respiratory rate 28, oxygen saturation 94%. HEENT: Pupils are equal and reactive. Oropharynx appears clear. Neck: Supple. Chest: Reveals coarse rhonchi bilaterally, Cardiac: Increased rate, regular rhythm. Abdomen: Soft with diminished bowel sounds. Extremities: Reveal 1+ peripheral edema. LABORATORY DATA: White blood count 13.2, hemoglobin 10.4, platelet count 113,000. Sodium 146, potassium 2.8, chloride 105, bicarbonate 31, BUN 12, creatinine 0.4, magnesium 1.2, bilirubin 1.1, AST 80, ALT 88, alkaline phosphatase 165. Cortisol level is reduced at 10.4. White blood count 13.2, hemoglobin 10.4, platelet count 113,000. Chest x-ray reveals bilateral infiltrates and effusions without interval improvement. IMPRESSION: A 58-year-old with 1. Alcoholic pancreatitis. 2. Acute hypoxemic and hypercapnic respiratory failure. 3. Refeeding syndrome. 4. Status post cardiopulmonary arrest. 5. Alcoholic hepatitis. 6. Esophagitis. 7. Hypernatremia. RECOMMENDATIONS: 1. Continue free water replacement. 2. Continue Clinimix. 3. Consider tube feeds tomorrow if he remains on mechanical ventilation. 4. Alcohol and tobacco education if he survives this acute event. Time spent in critical care 30+ minutes. cc: MD Dylan Bess MD
[2018-07-13 20:22] LABS: HEMATOCRIT 32.4 % (42.0-52.0); HEMOGLOBIN 10.8 g/dL (14.0-18.0)
[2018-07-13] MEDS: SODIUM CHLORIDE 0.9% INJ SCH (20:41)
--- NOTE | 2018-07-13 21:36 | PROVIDER PROGRESS NOTE ---
Progress Note SUBJECTIVE: No acute overnight events. Patient failed spontaneous breathing trial this AM. He is awake and follows some commands. OBJECTIVE: Last Vital Signs Temp 100.6 F H 07/13/18 15:21 Pulse 96 H 07/13/18 18:00 Resp 18 07/13/18 18:00 BP 98/66 07/13/18 18:00 Pulse Ox 95 07/13/18 18:00 Height 5 ft 10 in Weight 140 lb 4 oz GEN: awake, alert, NAD, follows simple commands HEENT: anicteric, ET in place NECK: supple, no JVD CV: RRR, no murmurs PULM: vented BS, no wheezing ABD: nondistended, NT, BS present, no rebound or guarding EXT: no cce NEURO: moves all extremities on command; no asterixis LABS: 07/13/18 07/13/18 06:00 06:00 WBC 13.21 H Plt Count 113 L Sodium 146 H Potassium 2.8 L Chloride 105 Carbon Dioxide 31 BUN 12 Creatinine 0.4 L Glucose 116 H Total Bilirubin 1.13 H AST 80 H ALT 88 H Alkaline Phosphatase 165 H Total Protein 4.6 L Albumin 2.3 L EGD 07/12 POSTOPERATIVE DIAGNOSES: 1. Severe esophagitis, distal esophagus, LA grade 4. 2. Z-line was at 44 cm. 3. Evidence of bile in the stomach. 4. Evidence of ulcer in the body of the stomach, likely from NG tube trauma. 5. Normal fundus, cardia, incisura. 6. Normal duodenal bulb and second portion of the duodenum. Mr. Parag Bullard is a 58 year old man admitted with acute alcoholic pancrea titis and hematemesis. His course complicated by PEA arrest, acute hypoxemic and hypercapnic respiratory failure, and shock requiring pressors. Labs and imaging also notable for protein calorie malnutrition, hepatic steatosis, hypophosphatemia, thrombocytopenia, hypernatremia, elevated troponin. Renal function preserved. EGD yesterday showed severe esophagitis and PUD likely from NGT trauma #Coffee ground emesis: 2/2 esophagitis and gastric ulcer probably from NGT trauma - continue IV PPI BID - hgb stable, trend daily, transfuse prn for goal 7-8 #Shock: resolved #Acute hypoxemic and hypercapnic respiratory failure: pulmonary following, apprec recs #Alcoholic pancreatitis: continue IVFs, NPO status, and analgesics as needed #Elevated LFTs: from ischemic liver injury; improving: trending LFTs #Hepatic steatosis: 2/2 to ROSA M #Refeeding syndrome: replete phosphorus, K prn, MVI #Hypernatremia: replacing free water deficit #Protein calorie malnutrition: continue clinimix while patient is NPO #NSTEMI: likely demand; mgmt as per primary #Thrombocytopenia: stable Will follow with you. Please call with questions
[2018-07-14] MEDS: MORPHINE IV PRN ×3 (00:05→21:38)
[2018-07-14] MEDS: LASIX IV SCH ×3 (01:02→22:37)
[2018-07-14] MEDS: CARAFATE LIQUID PO SCH ×4 (01:02→20:57)
[2018-07-14] MEDS: D5W 1,000 ML IV SCH ×2 (02:16→13:55)
[2018-07-14] MEDS: CLINIMIX E 4.25%-5% SOLUTION 1,000 ML IV SCH ×2 (02:16→13:54)
[2018-07-14] MEDS: ZOSYN 3.375 GM in NS 50 ML IV SCH ×4 (02:19→21:10)
[2018-07-14 02:26] LABS: HEMATOCRIT 30.5 % (42.0-52.0); HEMOGLOBIN 10.1 g/dL (14.0-18.0)
[2018-07-14] MEDS: SOLU-CORTEF IV SCH ×2 (04:28→15:37)
[2018-07-14 04:42] LABS: ALLEN TEST YES; BE 11.3 mmoll (-3.0-3.0); BLOOD TYPE ARTERIAL; HCO3-(ACT) 33.7 mmoll (20.0-26.0); METHB 0.7 % (0.0-1.5); O2HB 90.6 % (95.0-99.0); PCO2(98.6) 42 mmHg (35-45); PO2(98.6) 54 mmHg (60-100); SAMPLE BLOOD; SAO2 94.1 % (95.0-100.0); SRATE 16 BPM; THB 8.6 g/dL (11.5-17.4); TVOL 500 mL; pH(98.6) 7.53 (7.35-7.45)
[2018-07-14 04:43] LABS: MODALITY VENTILATOR
[2018-07-14] MEDS: LIBRIUM PO SCH ×3 (05:06→20:57)
[2018-07-14 06:47] LABS: MAGNESIUM 1.5 mg/dL (1.5-2.7); PHOSPHORUS 4.4 mg/dL (2.7-4.5)
[2018-07-14 06:48] LABS: AGAP 11; ALB/GLOB RATIO 0.8; ALKALINE PHOSPHATASE 118 U/L (32-122); BUN 15 mg/dL (8-22); CHLORIDE 98 mmol/L (98-107); COSMO 283; CREATININE 0.4 mg/dL (0.7-1.2); ESTIMATED GFR > 60; GLUCOSE 150 mg/dL (70-104); GOT 51 U/L (10-34); GPT 63 U/L (10-44); POTASSIUM 3.2 mmol/L (3.5-5.1); SODIUM 140 mmol/L (136-145); TCO2 31 mmol/L (25-35); TOTAL BILIRUBIN 0.63 mg/dL (0.20-1.00); TOTAL PROTEIN 4.6 g/dL (6.3-8.3)
[2018-07-14] MEDS: SODIUM CHLORIDE 0.9% INJ SCH (07:04)
[2018-07-14] MEDS: PROTONIX IV SCH ×2 (07:04→21:11)
--- NOTE | 2018-07-14 07:25 | Diag Imaging Result Doc PS360 ---
EXAM: CHEST-PORTABLE - 07/14/2018 HISTORY: respiratory failure TECHNIQUE: Portable chest COMPARISON: 07/13/2018 FINDINGS: The endotracheal tube appears to have been removed, or at least withdrawn to the lower neck. Central venous catheter remains in place. There is increased opacity at the left base which may relate to atelectasis and/or small pleural effusion. Bilateral infiltrates otherwise appear stable to mildly decreased. There is no pneumothorax identified. Heart size is normal. IMPRESSION: Apparent interval removal of endotracheal tube. Increased atelectasis and/or pleural fluid at left base. Stable to mildly decreased bilateral infiltrates elsewhere. Electronically signed by Ed Garrett 07/14/2018 7:23 AM
[2018-07-14] MEDS: NS 500 ML IV SCH (08:46)
[2018-07-14 08:51] LABS: HEMATOCRIT 30.9 % (42.0-52.0); HEMOGLOBIN 10.1 g/dL (14.0-18.0)
[2018-07-14] MEDS: VANCOMYCIN 1,500 MG in NS 500 ML IV SCH ×3 (09:15→22:38)
--- NOTE | 2018-07-14 09:37 | Diag Imaging Result Doc PS360 ---
EXAM: CHEST-PORTABLE - 07/14/2018 HISTORY: tube placement, tube advanced TECHNIQUE: Portable chest COMPARISON: Prior exam of 07/14/2018 FINDINGS: The endotracheal tube has been advanced and now appears to be located in satisfactory position, although the ginny is somewhat difficult to visualize due to technical factors. There are no other significant interval changes identified. IMPRESSION: Interval advancement of endotracheal tube, which now appears to be in satisfactory location. Electronically signed by Ed Garrett 07/14/2018 9:35 AM
[2018-07-14] MEDS ORDERED: POTASSIUM CHLORIDE 40 MEQ/SWI 40 MEQ/100 ML IVPB IV ONE (09:47)
[2018-07-14] MEDS ORDERED: LOPRESSOR IV PRN (09:47)
[2018-07-14] MEDS: ALBUMIN 25% IV SCH ×2 (10:30→21:44)
--- NOTE | 2018-07-14 10:57 | PROGRESS NOTE ---
DATE: 07/14/[address] Espino. Interval history was reviewed. SUBJECTIVE: A 58-year-old, white male, who was admitted in [facility] for alcohol pancreatitis, complicated by acute cardiac pulmonary arrest. Resuscitated, intubated, transferred to the ICU. The patient was seen by multiple consultants which includes Dr. Davila, Dr. Tejeda, Dr. Barnard. Events noted over the past 24 hours. Past medical history reviewed. Allergies are not known. REVIEW OF SYSTEMS: Patient is awake, able to move the upper extremities. ET tube was advanced this morning. NG tube was out. The patient was on oral NG tube medications. Review of systems not able to obtain. OBJECTIVE: Vital Signs: On exam, his pulse is 87, blood pressure 120/76 on mechanical ventilation. FiO2 30%. Tidal volume 500. General: He has some glasses on. Able to follow with some verbal commands. Slightly agitated. Lungs: Decreased breath sounds in the left base. Cardiac: Distant heart sounds. Abdomen: Belly is soft, nontender. Extremities: Antithrombotic stockings were off. Able to move the extremities LABORATORY DATA: As follows: Hematocrit 30.9. ABG: pH is 7.53, pCO2 of 42, pO2 of 54 on assisted control, rate of 16. Tidal volume 500, FiO2 30%. PEEP of 5. SMA-7: Sodium 140, potassium 3.2, BUN 15, creatinine 0.4, glucose 150. LFTs were slightly high. Blood cultures were negative. Stool occult blood was positive. Chest x-ray: Interval advancement of endotracheal tube and he had a central line on the left side noted. NG tube was out and appears to be cardiac, somehow shifted towards the left side. ASSESSMENT AND PLAN: 1. Acute cardiopulmonary arrest. The EKG showed right bundle branch block. Normal sinus. Echocardiography findings: Mild left ventricular hypertrophy. Ejection fraction 60%. Ruled out for cardiac myocardial infarction, and will change the metoprolol IV. He is on isosorbide. 2. Alcohol pancreatitis with a slight adult respiratory distress syndrome on ventilator support, stable. 3. Anemia. Hemoccult-positive stools. EGD was done by Dr. Tejeda with severe esophagitis. Evidence of ulcers due to trauma. Continue on IV Protonix. Stable hematocrit. On Carafate. 4. Patient is getting Librium for delirium tremens. We will slowly watch if he needs IV Ativan. 5. Hemodynamics were stable. 6. Hypokalemia. We will replace the potassium. The patient was given magnesium sulfate. The patient is also receiving stress dose of IV steroids and Dr. Davila is giving diuresis and planning to extubate. 7. Questionable aspiration pneumonia. Currently receiving IV vancomycin and Zosyn. Continue to monitor the progress. LEVEL OF DOCUMENTATION: 35 minutes. cc: MD Dylan Dailey MD
[2018-07-14] MEDS: ATIVAN IV PRN (12:02)
[2018-07-14 14:34] LABS: HEMATOCRIT 30.2 % (42.0-52.0); HEMOGLOBIN 9.7 g/dL (14.0-18.0)
[2018-07-14] MEDS: IMDUR PO SCH (15:35)
[2018-07-14] MEDS: LOPRESSOR PO SCH ×2 (15:35→20:58)
--- NOTE | 2018-07-14 15:47 | GASTROENTEROLOGY PROGRESS NOTE ---
DATE: 07/14/2018 Resting in bed. He is intubated, ventilated. He was able to open up his eyes on command. According to the nursing staff, no active bleeding noted. He has been stable. He has been spiking a temperature to 100.6 degrees yesterday and today so far he has been afebrile. PHYSICAL EXAMINATION: Vital Signs: Temperature of 98.2 degrees, pulse rate of 80, respiratory rate 16, blood pressure 114/72, saturating 92% on mechanical ventilator. Body weight of 145 pounds 2 oz. BMI 20.7 kg. General: Thinly built, lying in bed, intubated and vented. HEENT: Positive pallor. No icterus. PEG tube in place. Neck: Supple. Abdomen: Soft, nondistended. No guarding. Extremities: No cyanosis or clubbing. Neuro: He was able to wake up on commands and nod his head when asking some questions. LABS: Hemoglobin and hematocrit are 10.1 and 30.9. His sodium of 140, potassium 3.2 chloride 98, bicarb 30, anion gap 11, BUN of 15, creatinine 0.4, glucose of 115, calcium is 8, phosphorus 4.4, magnesium 1.5, total bilirubin is 0.6, AST 51, ALT 63, alkaline phosphatase 180, total protein 4.6. ABG showing pH of 7.53, pCO2 42, PO2 54. This is on ventilator. 30% FiO2. Chest x-ray showed interval advancement of endotracheal tube which appears in satisfactory location. IMPRESSION AND PLAN: 1. Coffee-grounds emesis secondary esophagitis and gastric ulcer. We will continue IV PPIs. 2. Anemia, transfuse as needed. 3. Acute hypoxic and hypercapnic respiratory failure. He is on a ventilator support per Pulmonary team. 4. Alcoholic pancreatitis. Continue IV fluids. 5. Elevated liver enzymes. Continue to watch for now, hepatic steatosis, likely secondary to alcoholic liver disease. 6. Protein calorie malnutrition. Continue Clinimix. 7. Non ST elevation NH. Per the primary team. 8. Thrombocytopenia, stable. 9. Alcoholism. Patient will need to be counseled to quit alcohol completely. 10. History of PE arrest on the floor. Aware. Pulmonary critical care team is on board. 11. Gastrointestinal prophylaxis, PPIs. 12. Alcoholism. Continue multivitamin once daily. 13. Above plan discussed with the patient's nurse and all questions answered. cc: MD Dylan Galeano MD Bharat K. Vakharia, MD
[2018-07-14] MEDS: NS IV SCH (18:08)
[2018-07-14] MEDS: M V I IV SCH (18:08)
[2018-07-14] MEDS: THIAMINE IV SCH (18:08)
[2018-07-14] MEDS: MAGNESIUM SULFATE IV SCH (18:08)
[2018-07-14] MEDS: FOLIC ACID IV SCH (18:08)
[2018-07-14 18:29] LABS: HEMATOCRIT 29.5 % (42.0-52.0); HEMOGLOBIN 9.7 g/dL (14.0-18.0)
--- NOTE | 2018-07-14 21:25 | PULMONOLOGY PROGRESS NOTE ---
DATE: 07/14/2018 SUBJECTIVE: The patient is more awake today. He will follow commands. OBJECTIVE: Vital Signs: The patient has been afebrile for the last 24 hours with a maximum temperature of 100.6 degrees yesterday at 3:21. BP 114/72. Heart rate 80, respiratory rate 16, oxygen saturation 92%. HEENT: Pupils are equal and reactive. Oropharynx is clear. Neck: Supple. Chest: Reveals coarse rhonchi bilaterally. Cardiac exam: S1-S2. Abdomen: Soft with diminished bowel sounds. Extremities: Reveal trace edema. LABORATORIES: Chest x-ray reveals consolidation/pneumonia at the left base. Endotracheal tube in good position after reposition. Sodium 140, potassium 3.2, chloride 98, bicarbonate 31, BUN 15, creatinine 0.4, phosphorus 4.4, magnesium 1.5. AST 51, ALT 63. Total protein 4.6, albumin 2.0. Cortisol 10.4. IMPRESSION: A 58-year-old with: 1. Acute hypoxemic and hypercapnic respiratory failure. 2. Alcoholic pancreatitis. 3. Refeeding syndrome. 4. Protein calorie malnutrition. 5. Status post cardiopulmonary arrest. 6. Alcoholic hepatitis. 7. Esophagitis. RECOMMENDATIONS: 1. Continue ventilatory support. He has failed a spontaneous breathing trial this morning. 2. Continue antibiotics for pneumonia at the left base. 3. Check a sputum for C and S. 4. Continue tube feeds as tolerated. 5. Daily weaning trials. TIME SPENT: Critical care 30+ minutes. cc: MD Dylan Bess MD
[2018-07-15] MEDS: CARAFATE LIQUID PO SCH ×4 (02:21→20:27)
[2018-07-15] MEDS: ZOSYN 3.375 GM in NS 50 ML IV SCH ×4 (02:22→20:27)
[2018-07-15] MEDS: SOLU-CORTEF IV SCH ×3 (02:22→15:20)
[2018-07-15] MEDS: CLINIMIX E 4.25%-5% SOLUTION 1,000 ML IV SCH ×2 (02:22→15:20)
[2018-07-15] MEDS: MORPHINE IV PRN ×2 (02:22→07:22)
[2018-07-15 04:55] LABS: ALLEN TEST YES; BE 14.9 mmoll (-3.0-3.0); BLOOD TYPE ARTERIAL; HCO3-(ACT) 36.5 mmoll (20.0-26.0); O2(CT) 15.2 mL/dL (15.0-23.0); O2HB 96.7 % (95.0-99.0); PCO2(98.6) 50 mmHg (35-45); PO2(98.6) 80 mmHg (60-100); SAMPLE BLOOD; SAO2 100.4 % (95.0-100.0); SRATE 10 BPM; THB 11.1 g/dL (11.5-17.4); TVOL 600 mL; pH(98.6) 7.51 (7.35-7.45)
[2018-07-15 04:56] LABS: MODALITY VENTILATOR
[2018-07-15] MEDS: LIBRIUM PO SCH ×3 (05:30→20:27)
[2018-07-15 06:22] LABS: HEMATOCRIT 27.3 % (42.0-52.0); MCH 32.5 PG (27-31); MCV 98.6 FL (81-99); MPV 12.6 FL (7.4-10.4); RBC 2.77 XMIL (4.7-6.1); RDW 16.8 % (11.5-14.5); WBC 11.46 X1000 (4.8-10.8)
[2018-07-15 06:41] LABS: AGAP 12; ALB/GLOB RATIO 1.3; ALBUMIN 2.9 g/dL (3.5-5.0); ALKALINE PHOSPHATASE 107 U/L (32-122); BUN 20 mg/dL (8-22); CALCIUM 8.4 mg/dL (8.8-10.2); CHLORIDE 97 mmol/L (98-107); COSMO 292; CREATININE 0.5 mg/dL (0.7-1.2); ESTIMATED GFR > 60; GLUCOSE 146 mg/dL (70-104); GOT 38 U/L (10-34); GPT 46 U/L (10-44); SODIUM 144 mmol/L (136-145); TCO2 35 mmol/L (25-35); TOTAL BILIRUBIN 0.76 mg/dL (0.20-1.00); TOTAL PROTEIN 5.2 g/dL (6.3-8.3)
[2018-07-15] MEDS: D5W 1,000 ML IV SCH ×2 (06:42→15:18)
[2018-07-15 06:52] LABS: MAGNESIUM 1.4 mg/dL (1.5-2.7); PHOSPHORUS 3.9 mg/dL (2.7-4.5)
--- NOTE | 2018-07-15 07:00 | Diag Imaging Result Doc PS360 ---
EXAM: CHEST-PORTABLE HISTORY: respiratory failure TECHNIQUE: Portable chest COMPARISON: 07/14/2018 FINDINGS: No change in the endotracheal tube or left jugular line. Catheter in the mid esophagus is unchanged. There is a small left pleural effusion. Mild worsening infiltrates in the right lung. No cardiomegaly. IMPRESSION: Mild interval worsening Electronically signed by Adan Olea 07/15/2018 6:58 AM
[2018-07-15] MEDS: ATIVAN IV PRN (07:21)
[2018-07-15] MEDS: PROTONIX IV SCH ×2 (07:22→20:27)
[2018-07-15 07:31] LABS: POTASSIUM 2.5 mmol/L (3.5-5.1)
[2018-07-15] MEDS ORDERED: POTASSIUM CHLORIDE 60 MEQ in NS 500 ML IV ONE (08:00)
[2018-07-15] MEDS: VANCOMYCIN 1,500 MG in NS 500 ML IV SCH (08:36)
[2018-07-15] MEDS: IMDUR PO SCH (08:40)
[2018-07-15] MEDS: LOPRESSOR PO SCH ×2 (08:40→20:27)
[2018-07-15] MEDS: NS 500 ML IV SCH (08:41)
[2018-07-15] MEDS ORDERED: LASIX IV ONE ×2 (10:05→20:00)
[2018-07-15] MEDS ORDERED: MAGNESIUM SULFATE 4 GM/S.W.I. 4 GM/100 ML IVPB IV ONE (11:49)
[2018-07-15 13:10] LABS: ALLEN TEST YES; BE 14.2 mmoll (-3.0-3.0); BLOOD TYPE ARTERIAL; HCO3-(ACT) 35.9 mmoll (20.0-26.0); METHB 0.8 % (0.0-1.5); O2(CT) 14.5 mL/dL (15.0-23.0); O2HB 91.1 % (95.0-99.0); PO2(98.6) 59 mmHg (60-100); SAMPLE BLOOD; SAO2 93.9 % (95.0-100.0); THB 11.3 g/dL (11.5-17.4); pH(98.6) 7.47 (7.35-7.45)
[2018-07-15 13:11] LABS: MODALITY VENTILATOR; PCO2(98.6) 55 mmHg (35-45)
[2018-07-15] MEDS ORDERED: DUONEB (A & A) INH ONE (13:19)
--- NOTE | 2018-07-15 14:13 | PROGRESS NOTE ---
DATE: 07/15/2018 SUBJECTIVE: The patient is awake, watching TV, and off NG tube and trying to wean off by Dr. Davila. REVIEW OF SYSTEMS: Potassium is low. None reported. PHYSICAL EXAMINATION: Vital signs: Temperature is 97.5 degrees, pulse is 90, blood pressure is 138/83, on mechanical ventilation. Lungs: Bilateral air entry. Heart: Distant heart Sounds. Abdomen: Belly is soft, nontender. Extremities: On thrombotic stockings. Neurologic: No obvious deficits noted. INVESTIGATIONS: CBC: White cell count 11.46, hematocrit 27.3, platelets 139,000. ABG, pH is 7.47, pCO2 55, PO2 59 on CPAP mode, FiO2 of 30%, rate of 10, tidal volume 16, PEEP of 5. SMA-7: sodium 144, potassium 2.5, and blood sugar is 146. LFTs were slightly high. ASSESSMENT AND PLAN: 1. Acute cardiopulmonary arrest. EKG, right bundle. Currently stable. 2. Ventilator support. Trying to wean off on CPAP mode. 3. Neurological exam is stable. 4. Aspiration pneumonia. Currently receiving vancomycin and Zosyn. 5. Hypokalemia replace the potassium, 100 mEq as directed. 6. Continue on IV Protonix and Librium for delirium tremens. 7. Planning to extubate as per Dr. Davila. Continue present treatment. LEVEL OF DOCUMENTATION: 25 minutes. cc: MD Dylan Dailey MD
[2018-07-15] MEDS: DUONEB (A & A) INH SCH ×2 (15:46→21:52)
[2018-07-15] MEDS ORDERED: POTASSIUM CHLORIDE 40 MEQ/SWI 40 MEQ/100 ML IVPB IV ONE (16:00)
[2018-07-15] MEDS: FOLIC ACID IV SCH (17:24)
[2018-07-15] MEDS: THIAMINE IV SCH (17:24)
[2018-07-15] MEDS: M V I IV SCH (17:24)
[2018-07-15] MEDS: NS IV SCH (17:24)
[2018-07-15] MEDS: MAGNESIUM SULFATE IV SCH (17:24)
[2018-07-15 18:33] LABS: HEMATOCRIT 30.3 % (42.0-52.0); HEMOGLOBIN 9.7 g/dL (14.0-18.0)
--- NOTE | 2018-07-15 18:54 | PULMONOLOGY PROGRESS NOTE ---
DATE: 07/15/2018 SUBJECTIVE: The patient is arousable. He will follow commands. He has been placed on a spontaneous breathing trial earlier and continues to do well. His tidal volumes are around 300 mL, but his respiratory rate is in the low 20s. Repeat arterial blood gas has been ordered. OBJECTIVE: Vital Signs: Maximum temperature in the last 24 hours was 100.3 degrees, BP 119/94, heart rate 86, respiratory rate 20, oxygen saturation 93%. HEENT: Pupils are equal and reactive. Oropharynx appears clear. Neck: Supple. Chest: Coarse rhonchi bilaterally with decreased breath sounds at the left base. Cardiac: S1, S2. Abdomen: Soft, with positive bowel sounds present. Extremities: Trace to 1+ peripheral edema. LABORATORIES: White blood count 11.46, hemoglobin 9.0, platelet count 139,000. Arterial blood gas: pH 7.51, pCO2 of 50, [O2 of 80 on mechanical ventilation. Chest x-ray reveals consolidation/atelectasis of the left base with a small left-sided effusion and mild worsening infiltrate in the right lung. Chemistry: Sodium 144, potassium 2.5, chloride 97, bicarbonate 35, BUN 20, creatinine 0.5, magnesium 1.4, phosphorus 3.9, AST 38, ALT 46. No new microbiology data. IMPRESSION: A 58-year-old with: 1. Acute hypoxemic and acute hypercapnic respiratory failure. 2. Alcoholic pancreatitis. 3. Refeeding syndrome, requiring magnesium and phosphorus and potassium. 4. Protein-calorie malnutrition. 5. Status post cardiopulmonary arrest. 6. Alcoholic hepatitis, which is improving. 7. Esophagitis. RECOMMENDATIONS: 1. Await results of arterial blood gas. He appears to be passing his spontaneous breathing trial, and it is hoped that he can be extubated today. 2. Continue antibiotics and bronchial hygiene. 3. Hold tube feeds. 4. Discussion about the importance of alcohol cessation will be made when patient has had significant improvement in clinical status. Time spent in critical care management: 30+ minutes cc: MD Dylan Bess MD MTDD
--- NOTE | 2018-07-15 19:10 | GASTROENTEROLOGY PROGRESS NOTE ---
DATE: 07/15/2018 SUBJECTIVE: Patient resting in bed. He is intubated and vented. He was able to wake up on commands and nod to some of my questions. He will be getting being weaning trials per Pulmonary team. Hopefully he can be extubated. According to nursing reports no signs of active bleeding. Vitals: Temperature of 97.5 degrees, pulse of 87, respiratory 25 , blood pressure 136/73 saturating 92% on mechanical ventilator at 30% FiO2. General: Thinly built, lying in bed in no acute distress. HEENT: Pale conjunctivae, no icterus. ET tube in place. Neck: Supple. Abdomen: Soft, nontender, nondistended. No guarding. Extremities: No cyanosis, clubbing. Neuro: He was awake and answers some questions by nodding. He cannot speak because of ET tube. LABS: Hemoglobin and hematocrit is 9 and 27.3, white count 11.46, platelet count of 139,000. ABG showing pH of 7.47, pCO2 55, PO2 59 this is on ventilator at CPAP trial FiO2 at 30%. Sodium 140, potassium 2.5, chloride 97, anion gap 12, BUN of 20, creatinine 0.5, glucose of 146, calcium 8.4, phosphorus 3.9, magnesium 1.4, bilirubin 0.76, AST 38, ALT 46, alkaline phosphatase 107, total protein 5.2, albumin of 2.9. Sputum cultures negative, blood culture negative after 48 hours. Chest x-ray done today showed mild interval worsening and small left pleural effusion, mild worsening of the right lung, no cardiomegaly, catheter in midesophagus is unchanged. IMPRESSION AND PLAN: 1. Coffee-ground emesis likely secondary to severe esophagitis and gastric ulcer, will continue IV PPIs . No more vomiting reported. 2. Anemia, transfuse as needed, watch for now. 3. Acute hypoxic, hypercapnic respiratory failure. He is on ventilator support by Dr. Davila. He is undergoing weaning trial today. 4. Alcoholism, patient is being watched closely with daily labs, his electrolytes are being replaced. 5. Malnutrition, he is on Clinimix 75 per hour. 6. Alcohol withdrawal. He is on Librium. 7. Alcoholic pancreatitis. He has been on intravenous fluids but the Pulmonary Team is also trying to diurese him to help with his respiratory status. 8. Gastrointestinal prophylaxis PPIs. 9. History of pulseless electrical activity arrest on the floor, pulmonary critical team is on board. 10. Thrombocytopenia aware. 11. Non ST elevation myocardial infarction aware. 12. Pneumonia, he is on intravenous Zosyn. 13. The above plans with the patient and nursing staff at bedside and all questions answered. Please call us with any further questions. cc: MD Dylan Richard MD MTDD
[2018-07-16] MEDS: MORPHINE IV PRN ×2 (00:15→18:01)
[2018-07-16] MEDS: ZOSYN 3.375 GM in NS 50 ML IV SCH ×4 (03:00→20:15)
[2018-07-16] MEDS: SOLU-CORTEF IV SCH ×2 (03:00→14:44)
[2018-07-16] MEDS: D5W 1,000 ML IV SCH ×4 (03:00→22:05)
[2018-07-16] MEDS: CARAFATE LIQUID PO SCH ×4 (03:00→20:13)
[2018-07-16] MEDS: DUONEB (A & A) INH SCH ×4 (03:23→21:45)
[2018-07-16] MEDS: CLINIMIX E 4.25%-5% SOLUTION 1,000 ML IV SCH ×2 (04:06→22:23)
[2018-07-16] MEDS: LIBRIUM PO SCH (05:04)
[2018-07-16 05:21] LABS: ALLEN TEST YES; BLOOD TYPE ARTERIAL; HCO3-(ACT) 41.3 mmoll (20.0-26.0); PCO2(98.6) 49 mmHg (35-45); PO2(98.6) 73 mmHg (60-100); SAMPLE BLOOD
[2018-07-16 05:24] LABS: MODALITY COOL AEROSOL; pH(98.6) 7.58 (7.35-7.45)
[2018-07-16 05:29] LABS: HEMOGLOBIN 9.8 g/dL (14.0-18.0)
[2018-07-16 05:39] LABS: MAGNESIUM 1.8 mg/dL (1.5-2.7); PHOSPHORUS 3.5 mg/dL (2.7-4.5)
[2018-07-16 05:44] LABS: AGAP 12; ALB/GLOB RATIO 1.2; ALBUMIN 2.8 g/dL (3.5-5.0); ALKALINE PHOSPHATASE 103 U/L (32-122); BUN 21 mg/dL (8-22); CALCIUM 8.3 mg/dL (8.8-10.2); CHLORIDE 95 mmol/L (98-107); COSMO 293; CREATININE 0.4 mg/dL (0.7-1.2); ESTIMATED GFR > 60; GLUCOSE 89 mg/dL (70-104); GOT 36 U/L (10-34); GPT 44 U/L (10-44); SODIUM 146 mmol/L (136-145); TCO2 39 mmol/L (25-35); TOTAL BILIRUBIN 0.63 mg/dL (0.20-1.00); TOTAL PROTEIN 5.1 g/dL (6.3-8.3)
[2018-07-16 06:30] LABS: MCH 31.9 PG (27-31); MCHC 31.6 g/dL (33-37); MPV 11.8 FL (7.4-10.4); RBC 3.07 XMIL (4.7-6.1); WBC 11.64 X1000 (4.8-10.8)
[2018-07-16] MEDS: POTASSIUM CHLORIDE 20 MEQ/SWI 20 MEQ/100 ML IVPB IV SCH ×2 (07:04→08:04)
--- NOTE | 2018-07-16 07:11 | Diag Imaging Result Doc PS360 ---
EXAM: CHEST-PORTABLE HISTORY: respiratory failure TECHNIQUE: Portable chest single view COMPARISON: 07/15/2018 FINDINGS: There are increased interstitial markings throughout both mid and lower lungs as well as basilar atelectasis. There are also small pleural effusions. No cardiomegaly. The endotracheal tube has been removed. No change in the left jugular line. IMPRESSION: No interval improvement. Findings in the right base actually appear more prominent. Electronically signed by Adan Olea 07/16/2018 7:08 AM
[2018-07-16] MEDS: IMDUR PO SCH (08:03)
[2018-07-16] MEDS: LOPRESSOR PO SCH ×2 (08:03→20:13)
[2018-07-16] MEDS: PROTONIX IV SCH ×2 (08:03→20:13)
[2018-07-16] MEDS: NS 500 ML IV SCH (08:17)
--- NOTE | 2018-07-16 08:26 | PROGRESS NOTE ---
DATE: 07/16/2018 SUBJECTIVE: Mr. Bullard is doing better. Patient extubated yesterday. Doing well. Alert and awake. The patient was able to recognize me well. No chest pain. Mild cough. No expectoration. No nausea or vomiting. OBJECTIVE: Vital signs: Noted. Neck: Supple. No JVD. Lungs: Bibasilar crepitations. Heart: S1 and S2 heard. Abdomen: Soft, nontender. Bowel sounds present. Extremities: No cyanosis, clubbing. No acute DVT. Able to move all 4 limbs. LABORATORY DATA DONE TODAY: Hemoglobin 9.8, hematocrit 31, WBC count 11.64, platelet 225,000. Blood gas: PH 7.58, pCO2 49, PO2 73. The patient electrolytes did reveal hypokalemia. BUN 21, creatinine 0.4. PROBLEMS: 1. Acute cardiopulmonary arrest status post extubation. Clinically patient is improving. 2. Alcohol abuse. 3. Acute pancreatitis. 4. Hypokalemia. 5. Pneumonia. PLAN: Overall the patient seems to be getting better. The patient does have severe esophagitis and gastritis. The patient does have problem with his left eye. The patient is noncompliant to see his eye doctor. I am going to supplement potassium. Continue the rest of the treatment and close observation. cc: MD Dylan Richard MD
[2018-07-16] MEDS: VANCOMYCIN 1,500 MG in NS 500 ML IV SCH (10:33)
[2018-07-16] MEDS: NS IV SCH (17:48)
[2018-07-16] MEDS: M V I IV SCH (17:48)
[2018-07-16] MEDS: MAGNESIUM SULFATE IV SCH (17:48)
[2018-07-16] MEDS: THIAMINE IV SCH (17:48)
[2018-07-16] MEDS: FOLIC ACID IV SCH (17:48)
[2018-07-16 17:54] LABS: HEMOGLOBIN 10.7 g/dL (14.0-18.0)
[2018-07-16] MEDS ORDERED: LASIX IV ONE (18:41)
--- NOTE | 2018-07-16 19:24 | PULMONOLOGY PROGRESS NOTE ---
DATE: 07/16/2018 SUBJECTIVE: The patient is awake, alert, and conversant. He continues to have cough and sputum production. He is hungry. OBJECTIVE: Vital Signs: BP 128/82, heart rate 23, respiratory rate 107, oxygen saturation 92%. HEENT: Pupils are equal and reactive. Oropharynx is clear. Neck: Supple. Chest: Reveals rhonchi bilaterally with decreased breath sounds left base. Abdomen: Soft with positive bowel sounds. Extremities: Reveal 1+ peripheral edema. LABORATORIES: Chest x-ray reveals pneumonia/infiltrate at the left base with slight increased changes at the right base. Sodium 144, potassium 3.0, chloride 95, bicarbonate 39, BUN 21, creatinine 0.4. White blood count 11.6, hemoglobin 9.8, platelet count 225,000. Arterial blood gas reveals a pH of 7.58, pCO2 of 49, pO2 of 73. IMPRESSION: 1. A 58-year-old with acute hypoxemic and hypercapnic respiratory failure. 2. Alcoholic pancreatitis. 3. Protein calorie malnutrition. 4. Alcoholic hepatitis. 5. Status post cardiopulmonary arrest. 6. Esophagitis. DISCUSSION: This is a 58-year-old with clinical assessment as per above. He is doing well off mechanical ventilation. He will need continued bronchial hygiene for pneumonia. RECOMMENDATIONS: 1. Initiate incentive spirometer. 2. Continue bronchial hygiene with nebulizer therapy. 3. Diet as tolerated. 4. Daily reinforcement about the needs to discontinue alcohol. 5. Physical therapy consult. 6. Prognosis guarded but improved. cc: MD Dylan Bess MD
--- NOTE | 2018-07-16 20:11 | GASTROENTEROLOGY PROGRESS NOTE ---
DATE: 07/16/2018 SUBJECTIVE: Patient is resting in bed. The patient is feeling better. He is extubated. He is hungry. He wants to eat. He is on a face mask. I have discussed it with the nursing staff at bedside. We will speak to the Pulmonary team, and we will also get a bedside swallow to ensure that he is ready to eat. No vomiting blood. No fever reported. OBJECTIVE: Vitals temperature of 97, pulse rate of 76, respiratory rate 20, blood pressure 132/74, saturating 97% on mask.Weight: Body weight of 137 pounds 11.2 ounces. BMI of 19. General Appearance: He is thinly built, lying in bed, in no acute distress. HEENT: Positive pallor. No icterus. Face mask in place. Neck: Supple. Abdomen: Soft, nontender, nondistended. No guarding. Extremities: No cyanosis, clubbing. Neurologic: He is alert, awake, and answers questions. LABORATORY DATA: Hemoglobin 9.8, hematocrit 31, white count of 11.64, platelet count of 225,000. ABG showing pH of 758, pCO2 of 49, PO2 of 73. This is on 40% FiO2 cool aerosol. Sodium 140, potassium 3, chloride 95, bicarbonate 39, anion gap 12, BUN of 21, creatinine 0.4, glucose of 89, calcium is 8.3, phosphorus 3.5, magnesium 1.8. Total bilirubin is 0.63, AST 36, ALT 44, alkaline phosphatase 103, total protein 5, albumin of 2.8. IMPRESSION AND PLAN: 1. Gastrointestinal bleeding is resolved. He will continue on Protonix twice daily. We will continue to watch hemoglobin and hematocrit and transfuse as needed. 2. Malnutrition. He is on Clinimix at 70 mg per hour. We can hopefully start him on oral feeding once he passes a bedside swallow and if okay with Pulmonary Team. 3. Respiratory failure. He is extubated. Dr. Davila is on board. 4. Severe esophagitis and gastric ulcer noted on the EGD. He will continue Carafate 1 g q.6 h. for 6 weeks. 5. Alcoholic pancreatitis. He is on IV fluids, but he is going through diuresis to help with breathing status. Alcoholic pancreatitis is resolved. 6. Alcohol abuse. Patient counseled to quit alcohol completely. 7. Electrolyte imbalance. Being managed by primary team. 8. Acute cardiopulmonary arrest status post intubation on the floor and now he is improving in the ICU and he has been extubated successfully. 9. The patient is on antibiotics of vancomycin and Zosyn for pneumonia. 10. The above plan of care with the patient and the nursing staff and all questions were answered. Please call us with any further questions. cc: MD Fernando Richard MD Robert Allen, MD MTDD
[2018-07-17] MEDS: DUONEB (A & A) INH SCH ×4 (03:28→20:32)
[2018-07-17] MEDS: CARAFATE LIQUID PO SCH ×4 (03:30→20:08)
[2018-07-17] MEDS: SOLU-CORTEF IV SCH ×2 (03:30→15:06)
[2018-07-17] MEDS: ZOSYN 3.375 GM in NS 50 ML IV SCH ×4 (03:30→20:08)
[2018-07-17] MEDS ORDERED: NS 50 ML ONE (03:31)
[2018-07-17 05:42] LABS: HEMOGLOBIN 9.8 g/dL (14.0-18.0); MCH 32.3 PG (27-31); MCHC 31.6 g/dL (33-37); MCV 102.3 FL (81-99); RBC 3.03 XMIL (4.7-6.1); RDW 16.5 % (11.5-14.5); WBC 13.93 X1000 (4.8-10.8)
[2018-07-17 06:06] LABS: ESTIMATED GFR > 60
[2018-07-17 06:10] LABS: AGAP 9; ALB/GLOB RATIO 1.1; ALBUMIN 2.7 g/dL (3.5-5.0); ALKALINE PHOSPHATASE 110 U/L (32-122); BUN 18 mg/dL (8-22); CALCIUM 8.5 mg/dL (8.8-10.2); CHLORIDE 96 mmol/L (98-107); COSMO 294; CREATININE 0.4 mg/dL (0.7-1.2); GLUCOSE 120 mg/dL (70-104); GOT 56 U/L (10-34); GPT 66 U/L (10-44); POTASSIUM 2.6 mmol/L (3.5-5.1); SODIUM 146 mmol/L (136-145); TCO2 41 mmol/L (25-35); TOTAL BILIRUBIN 0.58 mg/dL (0.20-1.00); TOTAL PROTEIN 5.1 g/dL (6.3-8.3)
[2018-07-17] MEDS ORDERED: POTASSIUM CHLORIDE 20% LIQUID PO ONE (07:07)
--- NOTE | 2018-07-17 07:24 | Diag Imaging Result Doc PS360 ---
EXAM: CHEST-PORTABLE INDICATION: respiratory failure TECHNIQUE: One view COMPARISON: 07/16/2018 FINDINGS: The left central line is in stable position. Interstitial edema and pulmonary venous congestion is approximately stable. Bibasilar pleural effusions and adjacent atelectasis are stable. No new consolidation is identified. Cardiac silhouette is stable. IMPRESSION: Stable chest. Electronically signed by Konstantin Shabazz 07/17/2018 7:21 AM
--- NOTE | 2018-07-17 07:54 | PROGRESS NOTE ---
DATE: 07/17/2018 SUBJECTIVE: Mr. Bullard is feeling better. More alert, awake, and answering questions well. No chest pain or palpitations. The patient does have cough with scanty sputum production. Denied any nausea or vomiting. No diarrhea. Patient does have generalized weakness. OBJECTIVE: His vital signs as noted.Neck: Supple. No JVD. Lungs: Bilateral good air entry present CVS: S1 and S2 heard. Abdomen: Soft. Globular. Bowel sounds present. POWER LINEMAN: Alert, awake and answering questions fairly well. LABORATORY DATA: WBC count 13.93, hemoglobin 9.8, hematocrit 31, and platelet count 285,000. Electrolytes did reveal hypokalemia. BUN was 18 and creatinine 0.4. GFR more than 40. LFT results reviewed. PROBLEMS: 1. Acute pancreatitis clinically doing better. 2. Severe esophagitis and gastritis. The patient is on Carafate and proton pump inhibitor. 3. Pneumonia, on vancomycin and Zosyn. Doing well. Clinically afebrile. Chest x-ray done yesterday revealed no interval improvement. The findings in the right base actually appear more prominent. 4. Alcohol abuse. Again emphasized alcohol cessation 5. History suggestive of SLE. 6. Coronary artery disease. 7. Rhabdomyolysis clinically doing well. We will continue physical therapy, fall precautions, pulmonary toilet, and supportive care. I am going to check amylase and lipase from morning blood. Potassium supplement. Continue rest of the treatment and close observation. cc: MD Dylan Richard MD
[2018-07-17] MEDS: POTASSIUM CHLORIDE 20 MEQ/SWI 20 MEQ/100 ML IVPB IV SCH ×2 (07:58→09:31)
[2018-07-17] MEDS: SODIUM CHLORIDE 0.9% INJ SCH (08:00)
[2018-07-17] MEDS: PROTONIX IV SCH ×2 (08:00→20:08)
[2018-07-17] MEDS: LOPRESSOR PO SCH ×2 (09:31→20:08)
[2018-07-17] MEDS: IMDUR PO SCH (09:31)
[2018-07-17] MEDS: VANCOMYCIN 1,500 MG in NS 500 ML IV SCH (09:31)
[2018-07-17] MEDS: LASIX IV SCH ×2 (09:32→16:27)
--- NOTE | 2018-07-17 14:08 | PROVIDER PROGRESS NOTE ---
Progress Note SUBJECTIVE: No acute overnight events. No N/V/F, CP, abdominal pain. Normal brown stools. SOB improving. OBJECTIVE: Last Vital Signs Temp 97.6 F 07/17/18 12:00 Pulse 98 H 07/17/18 12:00 Resp 18 07/17/18 12:00 BP 136/78 07/17/18 12:00 Pulse Ox 99 07/17/18 12:00 Height 5 ft 10 in Weight 138 lb 11.2 oz GEN: awake, alert, NAD HEENT: anicteric, EOMI, MMM NECK: supple, no JVD CV: RRR, no murmurs PULM: coarse BS, no wheezing ABD: soft, minimally distended. BS present. NT, no ascites EXT: no cce NEURO: moves all extremities on command; no asterixis LABS: 07/17/18 07/17/18 05:20 05:20 WBC 13.93 H Hgb 9.8 L Plt Count 285 Sodium 146 H Potassium 2.6 L Chloride 96 L Carbon Dioxide 41 H BUN 18 Creatinine 0.4 L Glucose 120 H Total Bilirubin 0.58 AST 56 H ALT 66 H Alkaline Phosphatase 110 Total Protein 5.1 L Albumin 2.7 L EGD 07/12 POSTOPERATIVE DIAGNOSES: 1. Severe esophagitis, distal esophagus, LA grade 4. 2. Z-line was at 44 cm. 3. Evidence of bile in the stomach. 4. Evidence of ulcer in the body of the stomach, likely from NG tube trauma. 5. Normal fundus, cardia, incisura. 6. Normal duodenal bulb and second portion of the duodenum. Mr. Parag Bullard is a 58 year old man admitted with acute alcoholic pancreatitis and hematemesis. His course complicated by PEA arrest, acute hypoxemic and hypercapnic respiratory failure, and shock requiring pressors. Other findings include protein calorie malnutrition, hepatic steatosis, refeeding syndrome, thrombocytopenia, hypernatremia, and demand NSTEMI. Renal function preserved. EGD on 07/12 showed severe esophagitis and PUD likely from NGT trauma. Patient was extubated 07/15 and is doing well. #GI bleedin/2 to esophagitis and PUD - continue PPI BID, can transition to PO and continue for 8 weeks - avoid NSAIDs #Alcoholic pancreatitis: resolved; patient tolerating diet without symptoms #Anemia: stable; no overt bleeding; PPI as above #Acute hypoxemic and hypercapnic respiratory failure: improved; pulmonary following, apprec recs #Elevated LFTs: from ischemic liver injury; improved; trending LFTs #Hepatic steatosis: 2/2 to ROSA M #Refeeding syndrome: replete phosphorus, K as needed #Leukocytosis: unclear etiology; patient is on vancomycin/zosyn #Protein calorie malnutrition: appreciate nutrition recs #NSTEMI: likely demand; no CP Will follow with you. Please call with questions
[2018-07-17] MEDS: D5W 1,000 ML IV SCH ×2 (16:27→18:10)
[2018-07-17] MEDS: THIAMINE IV SCH (18:09)
[2018-07-17] MEDS: NS IV SCH (18:09)
[2018-07-17] MEDS: FOLIC ACID IV SCH (18:09)
[2018-07-17] MEDS: MAGNESIUM SULFATE IV SCH (18:09)
[2018-07-17] MEDS: M V I IV SCH (18:09)
[2018-07-17 19:20] LABS: HEMATOCRIT 32.8 % (42.0-52.0); HEMOGLOBIN 10.2 g/dL (14.0-18.0)
[2018-07-17] MEDS ORDERED: LASIX IV ONE (20:47)
--- NOTE | 2018-07-17 21:03 | PULMONOLOGY PROGRESS NOTE ---
DATE: 07/17/2018 SUBJECTIVE: The patient is awake and alert. He has a marginal cough effort which is productive. He is tolerating some p.o. intake. OBJECTIVE: Vital Signs: The patient has been afebrile for the last 24 hours. Blood pressure 130/68, heart rate 99, respiratory rate 17. Oxygen saturation 95% on 3 L per nasal cannula. HEENT: Pupils are equal and reactive. Oropharynx appears clear. Neck: Supple. Chest: Reveals decreased breath sounds, left greater than right base. Cardiac: S1, S2. Abdomen: Soft, with minimal tenderness. Bowel sounds are present. Extremities: Reveal trace to 1+ peripheral edema. LABORATORIES: Chest x-ray reveals bibasilar effusions and infiltrates which appear stable. White blood count 13.93, hemoglobin 9.8, platelet count 285,000. Sodium 146, potassium 2.6, chloride 96, bicarbonate 41, BUN 18, creatinine 0.4. IMPRESSION: A 58-year-old with: 1. Acute hypoxemic respiratory failure. 2. Alcoholic pancreatitis. 3. Pleural effusions. 4. Protein calorie malnutrition. 5. Esophagitis. 6. Alcoholic hepatitis. 7. Status post cardiopulmonary arrest. DISCUSSION: A 58-year-old with assessment as above. He continues to improve and do well off mechanical ventilation. Bronchial hygiene will need to be encouraged for his left lower lobe pneumonia. RECOMMENDATION: 1. Continue incentive spirometry and bronchial hygiene. 2. Diet as tolerated. 3. Diuretic trial. 4. Physical therapy. 5. Smoking cessation to be encouraged with each visit. cc: MD Dylan Bess MD
[2018-07-17] MEDS: ATIVAN IV PRN (21:36)
[2018-07-18] MEDS: ZOSYN 3.375 GM in NS 50 ML IV SCH ×5 (01:44→22:03)
[2018-07-18] MEDS: CARAFATE LIQUID PO SCH ×4 (01:44→21:01)
[2018-07-18] MEDS: SOLU-CORTEF IV SCH ×3 (01:44→17:03)
[2018-07-18] MEDS: DUONEB (A & A) INH SCH ×4 (05:21→21:12)
[2018-07-18] MEDS ORDERED: LASIX IV ONE (05:30)
[2018-07-18 05:39] LABS: HEMATOCRIT 32.3 % (42.0-52.0); HEMOGLOBIN 10.1 g/dL (14.0-18.0); MCH 32.4 PG (27-31); MCHC 31.3 g/dL (33-37); MCV 103.5 FL (81-99); MPV 11.6 FL (7.4-10.4); RBC 3.12 XMIL (4.7-6.1); RDW 16.6 % (11.5-14.5); WBC 15.02 X1000 (4.8-10.8)
[2018-07-18 06:14] LABS: AGAP 12; ALBUMIN 2.7 g/dL (3.5-5.0); ALKALINE PHOSPHATASE 131 U/L (32-122); BUN 13 mg/dL (8-22); CALCIUM 8.6 mg/dL (8.8-10.2); CHLORIDE 91 mmol/L (98-107); COSMO 293; CREATININE 0.4 mg/dL (0.7-1.2); ESTIMATED GFR > 60; GLUCOSE 107 mg/dL (70-104); GOT 59 U/L (10-34); GPT 91 U/L (10-44); SODIUM 147 mmol/L (136-145); TCO2 44 mmol/L (25-35); TOTAL PROTEIN 5.3 g/dL (6.3-8.3)
[2018-07-18 06:15] LABS: POTASSIUM 2.3 mmol/L (3.5-5.1)
[2018-07-18] MEDS ORDERED: POTASSIUM CHLORIDE 20% LIQUID PO ONE (06:25)
--- NOTE | 2018-07-18 06:48 | PROGRESS NOTE ---
DATE: 07/18/2018 SUBJECTIVE: Mr. Bullard is doing fair. The patient's nurse reported him to have difficulty talking due to hoarseness, some respiratory distress. I gave him 40 mEq of potassium IV, 40 mg of Lasix IV. His potassium this morning was low. We are going to supplement potassium. He denied any chest pain. Oral intake is fair. No nausea, vomiting. Complaining of generalized weakness. No typical chest pain. Denied any diarrhea. The patient does have multiple complex issues. OBJECTIVE: Vital Signs: Blood pressure 126/82, pulse 93, respirations 17, temperature 98.6 degrees, O2 saturation was 95%. Neck: Supple. No JVD. Lungs: Bibasilar crepitations. Heart: S1 and S2 heard. Abdomen: Soft, globular. Bowel sounds present. Extremities: No cyanosis, clubbing. No acute DVT. LIME TRIMMER: Alert, awake. Able to move all 4 limbs. LABORATORY DATA: The patient's laboratory data done this morning revealed leukocytosis. Platelet count was 400,000. Potassium 2.3. I am going to supplement potassium p.o. and IV. Magnesium level is pending. ASSESSMENT: 1. The patient does have multiple medical problems, including pancreatitis. Lipase done yesterday was 116. 2. Hypokalemia. 3. Status post cardiopulmonary arrest. 4. Alcohol abuse. 5. Gastritis and reflux disease. 6. Coronary artery disease. PLAN: Overall plan discussed at length with the patient. I offered him short-term rehab in the skilled nursing at least for a month, the patient being Medicaid. The patient understood the importance but declined. cc: MD Dylan Richard MD
[2018-07-18 06:50] LABS: MAGNESIUM 1.3 mg/dL (1.5-2.7); PHOSPHORUS 3.6 mg/dL (2.7-4.5)
--- NOTE | 2018-07-18 06:50 | Diag Imaging Result Doc PS360 ---
EXAM: CHEST-PORTABLE HISTORY: respiratory failure TECHNIQUE: Chest portable single view COMPARISON: 07/17/2018 FINDINGS: Poor inspiratory effort. There are bilateral infiltrates/pulmonary edema as well as small pleural effusions. No cardiomegaly. There is basilar atelectasis. No change in the left jugular portacatheter. IMPRESSION: Stable chest. Electronically signed by Adan Olea 07/18/2018 6:47 AM
[2018-07-18] MEDS ORDERED: POTASSIUM CHLORIDE 40 MEQ/SWI 40 MEQ/100 ML IVPB IV ONE (08:00)
[2018-07-18] MEDS: VANCOMYCIN 1,500 MG in NS 500 ML IV SCH (09:08)
[2018-07-18] MEDS: PROTONIX IV SCH ×2 (09:09→21:00)
[2018-07-18] MEDS: IMDUR PO SCH (09:09)
[2018-07-18] MEDS: LOPRESSOR PO SCH ×2 (09:09→21:01)
[2018-07-18 10:46] LABS: ALLEN TEST YES; BE 27.9 mmoll (-3.0-3.0); BLOOD TYPE ARTERIAL; HCO3-(ACT) 46.6 mmoll (20.0-26.0); METHB 1.1 % (0.0-1.5); O2(CT) 13.7 mL/dL (15.0-23.0); O2HB 90.6 % (95.0-99.0); PO2(98.6) 60 mmHg (60-100); SAMPLE BLOOD; SAO2 94.4 % (95.0-100.0); THB 10.7 g/dL (11.5-17.4); pH(98.6) 7.46 (7.35-7.45)
[2018-07-18 10:48] LABS: MODALITY CANNULA; PCO2(98.6) 79 mmHg (35-45)
[2018-07-18] MEDS: MUCOMYST 20% INH SCH ×2 (10:48→21:12)
[2018-07-18] MEDS ORDERED: MAGNESIUM SULFATE 2 GM/S.W.I. 2 GM/50 ML IVPB IV ONE (11:02)
[2018-07-18] MEDS ORDERED: POTASSIUM CHLORIDE 60 MEQ in D5W 500 ML IV SCH (12:00)
[2018-07-18] MEDS: LASIX IV SCH ×2 (12:53→18:32)
[2018-07-18] MEDS: FOLIC ACID IV SCH (18:32)
[2018-07-18] MEDS: M V I IV SCH (18:32)
[2018-07-18] MEDS: THIAMINE IV SCH (18:32)
[2018-07-18] MEDS: MAGNESIUM SULFATE IV SCH (18:32)
[2018-07-18] MEDS: NS IV SCH (18:32)
[2018-07-18 18:41] LABS: HEMATOCRIT 33.7 % (42.0-52.0); HEMOGLOBIN 10.4 g/dL (14.0-18.0)
[2018-07-18] MEDS: D5W 1,000 ML IV SCH (21:01)
--- NOTE | 2018-07-18 21:51 | PULMONOLOGY PROGRESS NOTE ---
DATE: 07/18/2018 SUBJECTIVE: The patient is arousable to alert. He is weak. He reports his day has been "fair." He does appear oriented. He is having difficulty clearing his tracheal secretions. OBJECTIVE: Vital Signs: The patient has been afebrile for the last 24 hours. Blood pressure 127/77, heart rate 106, respiratory rate 17, oxygen saturation 95% on 3 L per nasal cannula. HEENT: Pupils are equal and reactive. Oropharynx appears clear. Neck: Supple. Chest: Reveals coarse rhonchi bilaterally. Cardiac exam: S1, S2. Abdomen: Soft with diminished bowel sounds. Extremities: Reveal trace edema. LABORATORIES: White blood count 15,000, hemoglobin 10.1, platelet count 400,000. Arterial blood gas: PH 7.46, pCO2 of 79, pO2 of 60. Sodium 147, potassium 2.3, chloride 91, bicarbonate 44, BUN 13, creatinine 0.4. Chest x-ray reveals generous cardiac silhouette, bibasilar infiltrates and effusions without change. IMPRESSION: A 58-year-old with: 1. Acute hypoxemic respiratory failure. 2. Alcoholic pancreatitis. 3. Pleural effusions. 4. Protein calorie malnutrition. 5. Alcoholic hepatitis. 6. Esophagitis. 7. Status post cardiopulmonary arrest. DISCUSSION: A 58-year-old with assessment as outlined above. The patient is weak and is having difficulty clearing his secretions. Attempts to diurese and decrease effusions will be tried today. His pulmonary status remains marginal. RECOMMENDATION: 1. Continue bronchial hygiene. 2. Continue BiPAP at bedtime and p.r.n. 3. Daily chest x-rays and arterial blood gases as clinically indicated. cc: MD Dylan Bess MD
--- NOTE | 2018-07-18 22:48 | PROVIDER PROGRESS NOTE ---
Progress Note SUBJECTIVE: No acute overnight events. He denies SOB; however, per RN patient has been having persistent weak cough and increased WOB. No CP, abdominal pain, rectal bleeding. He is tolerating diet. OBJECTIVE: Last Vital Signs Temp 98.7 F 07/18/18 19:16 Pulse 105 H 07/18/18 19:16 Resp 18 07/18/18 19:16 BP 118/72 07/18/18 19:16 Pulse Ox 96 07/18/18 21:12 Height 5 ft 10 in Weight 134 lb 6 oz GEN: awake, alert, NAD HEENT: anicteric, EOMI, MMM NECK: supple, no JVD CV: RRR, no murmurs PULM: coarse BS, diffuse rhonchi, increased WOB ABD: soft, minimally distended. BS present. NT, no ascites EXT: no cce NEURO: nonfocal, AAOx3 LABS: 07/17/18 07/17/18 05:20 05:20 WBC 13.93 H Hgb 9.8 L Plt Count 285 Sodium 146 H Potassium 2.6 L Chloride 96 L Carbon Dioxide 41 H BUN 18 Creatinine 0.4 L Glucose 120 H Total Bilirubin 0.58 AST 56 H ALT 66 H Alkaline Phosphatase 110 Total Protein 5.1 L Albumin 2.7 L EXAM: CHEST-PORTABLE COMPARISON: 07/17/2018 FINDINGS: Poor inspiratory effort. There are bilateral infiltrates/pulmonary edema as well as small pleural effusions. No cardiomegaly. There is basilar atelectasis. No change in the left jugular portacatheter. IMPRESSION: Stable chest. EGD 07/12 POSTOPERATIVE DIAGNOSES: 1. Severe esophagitis, distal esophagus, LA grade 4. 2. Z-line was at 44 cm. 3. Evidence of bile in the stomach. 4. Evidence of ulcer in the body of the stomach, likely from NG tube trauma. 5. Normal fundus, cardia, incisura. 6. Normal duodenal bulb and second portion of the duodenum. Mr. Parag Bullard is a 58 year old man admitted with acute alcoholic pancreatitis and hematemesis. His course complicated by PEA arrest, acute hypoxemic and hypercapnic respiratory failure, and shock requiring pressors. Other findings include protein calorie malnutrition, hepatic steatosis, refeeding syndrome, thrombocytopenia, hypernatremia, and demand NSTEMI. Renal function preserved. EGD on 07/12 showed severe esophagitis and PUD likely from NGT trauma. Patient was extubated 07/15. Since yesterday, he has had worsening pulmona ry functional status from suspected volume overload. Primary is diuresing. #GI bleedin/2 to esophagitis and PUD - continue PPI BID, can transition to PO and continue for 8 weeks - avoid NSAIDs #Alcoholic pancreatitis: resolved; patient tolerating diet without symptoms #Anemia: stable; no overt bleeding; PPI as above #Acute hypoxemic and hypercapnic respiratory failure: guarded; pulmonary fol lowing, apprec recs #Elevated LFTs: from ischemic liver injury; improved; trending LFTs #Hepatic steatosis: 2/2 to ROSA M #Refeeding syndrome: replete phosphorus, K as needed #Leukocytosis: unclear etiology; patient is on vancomycin/zosyn #Protein calorie malnutrition: appreciate nutrition recs #NSTEMI: likely demand; no CP Will follow with you. Please call with questions
[2018-07-19] MEDS: D5W 1,000 ML IV SCH ×2 (00:58→23:04)
[2018-07-19] MEDS: CARAFATE LIQUID PO SCH ×4 (01:14→21:25)
[2018-07-19] MEDS: DUONEB (A & A) INH SCH ×4 (03:15→19:33)
[2018-07-19] MEDS: SOLU-CORTEF IV SCH ×2 (04:44→17:56)
[2018-07-19] MEDS: ZOSYN 3.375 GM in NS 50 ML IV SCH ×4 (04:44→23:36)
[2018-07-19 05:22] LABS: BASO% 0.9 % (0.0-0.8); EOS# 0.17 X1000 (0.0-0.7); EOS% 1.4 % (0.0-10.0); HEMATOCRIT 31.7 % (42.0-52.0); HEMOGLOBIN 9.9 g/dL (14.0-18.0); IMM GRAN# 0.09 X1000 (0.0-0.04); IMM GRAN% 0.8 % (0.0-0.5); LYMPH# 1.56 X1000 (1.2-3.4); LYMPH% 13.3 % (20.5-51.1); MCH 31.7 PG (27-31); MCHC 31.2 g/dL (33-37); MCV 101.6 FL (81-99); MONO# 0.81 X1000 (0.11-0.59); MONO% 6.9 % (1.7-9.3); MPV 11.3 FL (7.4-10.4); NEUT# 9.01 X1000 (1.4-6.5); NEUT% 76.7 % (42.2-75.2); PLT 436 X1000 (130-400); RBC 3.12 XMIL (4.7-6.1); RDW 16.9 % (11.5-14.5); WBC 11.74 X1000 (4.8-10.8)
[2018-07-19 05:27] LABS: ALLEN TEST YES; BE 27.6 mmoll (-3.0-3.0); BLOOD TYPE ARTERIAL; HCO3-(ACT) 46.3 mmoll (20.0-26.0); METHB 1.5 % (0.0-1.5); O2(CT) 12.6 mL/dL (15.0-23.0); PO2(98.6) 56 mmHg (60-100); SAMPLE BLOOD; SAO2 93.8 % (95.0-100.0); THB 9.9 g/dL (11.5-17.4)
[2018-07-19 05:31] LABS: MODALITY BI PAP
[2018-07-19 05:59] LABS: pH(98.6) 7.57 (7.35-7.45)
[2018-07-19 06:00] LABS: AGAP 9; ALBUMIN 2.5 g/dL (3.5-5.0); ALKALINE PHOSPHATASE 115 U/L (32-122); BUN 12 mg/dL (8-22); CALCIUM 8.7 mg/dL (8.8-10.2); CHLORIDE 88 mmol/L (98-107); COSMO 283; CREATININE 0.6 mg/dL (0.7-1.2); ESTIMATED GFR > 60; GLUCOSE 107 mg/dL (70-104); GOT 36 U/L (10-34); GPT 69 U/L (10-44); POTASSIUM 2.7 mmol/L (3.5-5.1); SODIUM 142 mmol/L (136-145); TCO2 45 mmol/L (25-35)
[2018-07-19 06:00] LABS: PCO2(98.6) 58 mmHg (35-45)
[2018-07-19] MEDS ORDERED: POTASSIUM CHLORIDE 40 MEQ/SWI 40 MEQ/100 ML IVPB IV ONE (06:23)
[2018-07-19] MEDS ORDERED: POTASSIUM CHLORIDE 20% LIQUID PO ONE (06:24)
[2018-07-19] MEDS ORDERED: MAGNESIUM SULFATE 2 GM/S.W.I. 2 GM/50 ML IVPB IV ONE (06:25)
--- NOTE | 2018-07-19 06:45 | PROGRESS NOTE ---
DATE: 07/19/2018 SUBJECTIVE: Mr. Bullard is doing fair. The patient does have cough with scanty sputum production. No high-grade fever or chills. Sputum is thick at times hard to expectorate. Denied any nausea or vomiting. Oral intake is fair. Note patient has Lyn catheter. No typical chest pain. The patient was able to stand up with physical therapy. Denied any leg swelling. OBJECTIVE: Vital Signs: Noted. Neck: Supple. No JVD. Lungs: Decreased air entry both the bases. CVS: S1 and S2 heard. Abdomen: Soft, globular. Bowel sounds present. POWER STATION OPERATOR: Alert, awake. Able to move all 4 limbs. LABORATORY DATA: Revealed hypokalemia. BUN was 12. Creatinine 0.6. LFT results reviewed. MEDICAL PROBLEM: Status post pancreatitis, acute hypoxemic respiratory failure, protein calorie malnutrition, alcohol abuse, severe esophagitis, coronary artery disease status post cardiopulmonary arrest, generalized weakness. PLAN: Plan is to continue current treatment. Supplement potassium and magnesium. Physical therapy, IV antibiotics. Overall plan discussed with the patient and he is in agreement. cc: MD Dylan Richard MD
--- NOTE | 2018-07-19 07:38 | Diag Imaging Result Doc PS360 ---
EXAM: CHEST-PORTABLE 07/19/2018 HISTORY: respiratory failure TECHNIQUE: AP portable at 0613 COMMENT: There are bilateral pleural effusions. There is hazy opacity over both lungs with some platelike opacities in the right lower and upper lobes. There are healing left lateral rib fractures in the sixth and seventh ribs. Compared to 07/18/2018 there has been slight worsening in the overall pulmonary opacity. IMPRESSION: Slightly worsened pulmonary edema. Platelike atelectasis plus minus pneumonia. Pleural effusions. Electronically signed by Yimi Khan 07/19/2018 7:36 AM
[2018-07-19] MEDS: MUCOMYST 20% INH SCH ×2 (07:52→19:33)
[2018-07-19] MEDS: LOPRESSOR PO SCH ×2 (08:01→21:25)
[2018-07-19] MEDS: IMDUR PO SCH (08:01)
[2018-07-19] MEDS: PROTONIX IV SCH ×2 (08:02→21:25)
[2018-07-19] MEDS: VANCOMYCIN 1,500 MG in NS 500 ML IV SCH (10:52)
--- NOTE | 2018-07-19 12:44 | GASTROENTEROLOGY PROGRESS NOTE ---
DATE: 07/19/2018 SUBJECTIVE: The patient is resting in bed. He is feeling better. He denies any new complaints. He denies any fevers, rigors, or chills. Denies any nausea or vomiting. He is moving his bowels which are brown. He is starting to eat better. PHYSICAL EXAMINATION: Vital Signs: Temperature of 98 degrees, pulse rate of 92, respiratory rate of 18, blood pressure 124/79, saturating 95% on 3.5 L per nasal cannula. General Appearance: Thinly built, lying in bed, in no acute distress. Body weight of 135 pounds, 3.2 ounces. BMI of 19 kg/m2. HEENT: Positive pallor. No icterus. Pupils equal, reactive to light. Neck: Supple. Abdomen: Soft, nontender, nondistended. No guarding or rebound. Extremities: No cyanosis, clubbing. Neurologic: Alert, awake, oriented x3. LABS: Hemoglobin and hematocrit are 9.9 and 31.7, white count of 11.74, platelet count of 436,000. ABG showing pH of 7.57, PO2 56. This is on BiPAP, 40% FiO2. Sodium 142, potassium 2.7, chloride of 88, bicarb of 45, anion gap 9, BUN of 12, creatinine 0.6, glucose of 107, calcium 8.7. Total bilirubin is 0.5, AST 36, ALT 16, alkaline phosphatase 150, total protein 5, albumin of 2.5, lipase of 166. Chest x-ray done today showed slightly worsened pulmonary edema, plate-like atelectasis, plus/minus pneumonia and pleural effusions. IMPRESSION AND PLAN: 1. Gastrointestinal bleeding, has resolved. He will continue on proton pump inhibitors twice a day. We can transition him to oral proton pump inhibitors on discharge that he will continue for 12 weeks. After that, he will wean down to Zantac 150 mg by mouth twice a day. Continue to avoid nonsteroidal anti-inflammatory drugs. He was counseled to quit alcohol completely. 2. Alcoholic pancreatitis, has resolved. We will continue to advance diet, will continue on a low-fat diet. 3. Anemia. Continue to watch for now. Transfuse as needed. 4. Acute hypoxic and hypercapnic respiratory failure. He is being followed by the pulmonary team. 5. Elevated liver enzymes, likely secondary to alcoholic hepatitis and shock liver. They are improving. We will continue to follow. 6. Severe esophagitis on esophagogastroduodenoscopy. He will continue on proton pump inhibitors twice a day. 7. Hepatic steatosis secondary to alcoholic steatohepatitis. 8. Refeeding syndrome and electrolyte imbalance, being monitored by the primary care team. 9. Leukocytosis. He is on antibiotics. Likely from pneumonia. 10. Protein calorie malnutrition. Continue to follow, nutrition recommendations per the primary care team. 11. Non-ST elevation myocardial infarction. Aware. Being managed by they primary care team. 12. History of respiratory failure, status post extubation on 07/15/2018, with improving pulmonary function. 13. Gastrointestinal prophylaxis with proton pump inhibitors as above. 14. Bowel regimen. He is moving his bowels now but we will try Colace if needed. 15. We will start the patient on Culturelle 1 capsule by mouth twice a day since he is on strong antibiotics. 16. The above plan was discussed with the patient. All questions were answered. Please call us with any questions. cc: MD Dylan Galeano MD Bharat K. Vakharia, MD MTDD
[2018-07-19 17:41] LABS: HEMATOCRIT 31.5 % (42.0-52.0); HEMOGLOBIN 9.9 g/dL (14.0-18.0)
[2018-07-19] MEDS: M V I IV SCH (17:56)
[2018-07-19] MEDS: THIAMINE IV SCH (17:56)
[2018-07-19] MEDS: FOLIC ACID IV SCH (17:56)
[2018-07-19] MEDS: NS IV SCH (17:56)
[2018-07-19] MEDS: MAGNESIUM SULFATE IV SCH (17:56)
--- NOTE | 2018-07-19 20:37 | PULMONOLOGY PROGRESS NOTE ---
DATE: 07/19/2018 SUBJECTIVE: The patient is awake, alert, and conversant. He appears slightly stronger than last evening. He continues to have a marginal cough effort. OBJECTIVE: Vital Signs: The patient has been afebrile for the last 24 hours. Blood pressure 123/73, heart rate 97, respiratory rate 20, oxygen saturation 100 percent on 4 L per nasal cannula. HEENT: Pupils are equal and reactive. Oropharynx appears clear. Neck: Supple. Chest: Scattered rhonchi bilaterally. Cardiac: S1, S2. Abdomen: Soft with positive bowel sounds. Extremities: +1 edema. LABORATORIES: Chest x-ray reveals slight increase in pulmonary edema. Sodium 142, potassium 2.7, chloride 88, bicarbonate 45, BUN 12, creatinine 0.6. Arterial blood gas: pH 7.57, pCO2 of 58, pO2 of 56 on BiPAP. IMPRESSION: A 58-year-old with: 1. Acute hypoxemic respiratory failure. 2. Acute hypercapnic respiratory failure. 3. Alcoholic pancreatitis. 4. Pleural effusions. 5. Alcoholic hepatitis. 6. Protein-calorie malnutrition. 7. Esophagitis. 8. Status post cardiopulmonary arrest. RECOMMENDATIONS: 1. Continue bronchial hygiene. 2. Continue to cycle BiPAP at bedtime and as needed. 3. Attempt additional diuresis with Lasix. 4. Overall prognosis remains guarded. cc: MD Dylan Bess MD
[2018-07-19] MEDS: CULTURELLE PO SCH (21:25)
[2018-07-19] MEDS: LASIX IV SCH (21:26)
[2018-07-20] MEDS: CARAFATE LIQUID PO SCH ×4 (02:33→20:16)
[2018-07-20] MEDS: D5W 1,000 ML IV SCH ×2 (02:33→20:17)
[2018-07-20] MEDS: DUONEB (A & A) INH SCH ×4 (03:37→21:20)
[2018-07-20] MEDS: ZOSYN 3.375 GM in NS 50 ML IV SCH ×5 (03:52→22:19)
[2018-07-20] MEDS: LASIX IV SCH (03:53)
[2018-07-20] MEDS: SOLU-CORTEF IV SCH ×3 (03:53→16:40)
[2018-07-20 05:40] LABS: HEMOGLOBIN 10.6 g/dL (14.0-18.0); MCH 32.2 PG (27-31); MCHC 31.2 g/dL (33-37); MCV 103.3 FL (81-99); MPV 11.4 FL (7.4-10.4); RBC 3.29 XMIL (4.7-6.1); RDW 16.7 % (11.5-14.5); WBC 12.69 X1000 (4.8-10.8)
[2018-07-20 06:06] LABS: ESTIMATED GFR > 60
[2018-07-20 06:12] LABS: AGAP 7; ALB/GLOB RATIO 0.9; ALBUMIN 2.6 g/dL (3.5-5.0); ALKALINE PHOSPHATASE 121 U/L (32-122); BUN 11 mg/dL (8-22); CALCIUM 8.9 mg/dL (8.8-10.2); CHLORIDE 92 mmol/L (98-107); COSMO 286; CREATININE 0.7 mg/dL (0.7-1.2); GLUCOSE 122 mg/dL (70-104); GOT 28 U/L (10-34); GPT 57 U/L (10-44); POTASSIUM 2.8 mmol/L (3.5-5.1); SODIUM 143 mmol/L (136-145); TCO2 44 mmol/L (25-35); TOTAL BILIRUBIN 0.51 mg/dL (0.20-1.00); TOTAL PROTEIN 5.6 g/dL (6.3-8.3)
--- NOTE | 2018-07-20 06:32 | PROGRESS NOTE ---
DATE: 07/20/2018 SUBJECTIVE: Mr. Bullard is doing fair. He denied any fever or chills. Does have cough with scanty sputum production and generalized weakness. Oral intake fair to poor. No nausea, vomiting. OBJECTIVE: Vital signs: Noted. Neck: Supple. No JVD. Lungs: Bibasilar crepitations, occasional wheezing. CVS: S1 and S2 heard. Abdomen: Soft, globular. Bowel sounds present. GEOLOGY TECHNICIAN: Alert, awake able to move all 4 limbs. LABORATORY DATA: Done today in. Hemoglobin 10.6, hematocrit 34. WBC count 12.69. Platelet count 463,000. Electrolytes are pending. ASSESSMENT: 1. The patient does have multiple medical problems, including hypoxemic respiratory failure. 2. Alcoholic pancreatitis and hepatitis. 3. Protein calorie nutrition. 4. Severe esophagitis and gastritis. 5. Status post cardiopulmonary arrest. 6. Electrolyte abnormality. 7. Generalized weakness. PLAN: Plan is to continue current treatment and close observation. The patient is on IV antibiotics supportive care. The patient needs physical therapy and close monitoring. cc: MD Dylan Richard MD
--- NOTE | 2018-07-20 07:30 | Diag Imaging Result Doc PS360 ---
EXAM: CHEST-PORTABLE INDICATION: respiratory failure TECHNIQUE: One view COMPARISON: 07/19/2018 FINDINGS: The left central line is in stable position. The lungs are grossly clear. Consolidations bilaterally most consistent with pulmonary edema +/- pneumonia persist. There is perhaps mild improvement at the right lung base. There is platelike atelectasis, especially at the right midlung zone that is essentially stable. No new consolidation is identified. Cardiac silhouette is stable. IMPRESSION: Marginal improvement at the right lung base. Stable chest, otherwise. Electronically signed by Konstantin Shabazz 07/20/2018 7:28 AM
[2018-07-20] MEDS ORDERED: POTASSIUM CHLORIDE 20% LIQUID PO ONE (08:00)
[2018-07-20] MEDS: IMDUR PO SCH (08:53)
[2018-07-20] MEDS: PROTONIX IV SCH ×2 (08:53→20:16)
[2018-07-20] MEDS: CULTURELLE PO SCH ×2 (08:53→20:16)
[2018-07-20] MEDS: SODIUM CHLORIDE 0.9% INJ SCH (08:53)
[2018-07-20] MEDS: LOPRESSOR PO SCH ×2 (08:53→20:16)
[2018-07-20] MEDS: POTASSIUM CHLORIDE 20 MEQ/SWI 20 MEQ/100 ML IVPB IV SCH ×2 (08:54→10:24)
[2018-07-20] MEDS: MUCOMYST 20% INH SCH ×2 (09:30→21:20)
[2018-07-20] MEDS: VANCOMYCIN 1,800 MG in NS 250 ML IV SCH (11:56)
--- NOTE | 2018-07-20 16:06 | PROVIDER PROGRESS NOTE ---
Progress Note SUBJECTIVE: No acute overnight events. He reports improving dyspnea. He continues to have cough. No CP, abdominal pain. He is having bowel movement daily without blood. He does have poor appetite OBJECTIVE: Last Vital Signs Temp 98.4 F 07/20/18 15:50 Pulse 69 07/20/18 15:50 Resp 16 07/20/18 15:50 BP 132/79 07/20/18 15:50 Pulse Ox 97 07/20/18 15:50 Height 5 ft 10 in Weight 134 lb 8 oz GEN: awake, alert, NAD HEENT: anicteric, EOMI, MMM NECK: supple, no JVD CV: RRR, no murmurs PULM: coarse BS, diffuse rhonchi, increased WOB ABD: soft, minimally distended. BS present. NT, no ascites EXT: no cce NEURO: nonfocal, AAOx3 LABS: 07/20/18 07/20/18 05:16 05:16 WBC 12.69 H Hgb 10.6 L MCV 103.3 H Plt Count 463 H Sodium 143 Potassium 2.8 L Chloride 92 L Carbon Dioxide 44 H BUN 11 Creatinine 0.7 Glucose 122 H Calcium Phosphorus Magnesium Total Bilirubin 0.51 AST 28 ALT 57 H Alkaline Phosphatase 121 Total Protein 5.6 L Albumin 2.6 L EXAM: CHEST-PORTABLE 07/20/2018 COMPARISON: 07/19/2018 FINDINGS: The left central line is in stable position. The lungs are grossly clear. Consolidations bilaterally most consistent with pulmonary edema +/- pneumonia persist. There is perhaps mild improvement at the right lung base. There is platelike atelectasis, especially at the right midlung zone that is essentially stable. No new consolidation is identified. Cardiac silhouette is stable. IMPRESSION: Marginal improvement at the right lung base. Stable chest, otherwise. EGD 07/12 POSTOPERATIVE DIAGNOSES: 1. Severe esophagitis, distal esophagus, LA grade 4. 2. Z-line was at 44 cm. 3. Evidence of bile in the stomach. 4. Evidence of ulcer in the body of the stomach, likely from NG tube trauma. 5. Normal fundus, cardia, incisura. 6. Normal duodenal bulb and second portion of the duodenum. Mr. Parag Bulladr is a 58 year old man admitted with acute alcoholic pancreatitis and hematemesis. His course complicated by PEA arrest, acute hypoxemic and hypercapnic respiratory failure, and shock requiring pressors. Other findings include protein calorie malnutrition, hepatic steatosis, refeeding syndrome, thrombocytopenia, hypernatremia, and demand NSTEMI. Renal function preserved. EGD on 07/12 showed severe esophagitis and PUD likely from NGT trauma. Patient was extubated 07/15. His respiratory status has been improving with diuresis and supportive care. #GI bleedin/2 to esophagitis and PUD; continue PPI BID; avoid NSAIDs #Alcoholic pancreatitis: resolved; patient tolerating diet #Anemia: stable; no overt bleeding; PPI as above #Acute hypoxemic and hypercapnic respiratory failure: improving; pulmonary following, apprec recs #Elevated LFTs: from ischemic liver injury; improving; trending LFTs #Hepatic steatosis: 2/2 to ROSA M #Refeeding syndrome: replete phosphorus, K as needed #Leukocytosis: from suspected PNA on abx #Protein calorie malnutrition: appreciate nutrition recs #NSTEMI: likely demand; no CP Will follow with you. Please call with questions
[2018-07-20] MEDS: NS IV SCH (17:07)
[2018-07-20] MEDS: FOLIC ACID IV SCH (17:07)
[2018-07-20] MEDS: M V I IV SCH (17:07)
[2018-07-20] MEDS: MAGNESIUM SULFATE IV SCH (17:07)
[2018-07-20] MEDS: THIAMINE IV SCH (17:07)
[2018-07-20 18:12] LABS: HEMATOCRIT 31.2 % (42.0-52.0)
[2018-07-21] MEDS: DUONEB (A & A) INH SCH ×4 (03:15→20:00)
[2018-07-21] MEDS: SOLU-CORTEF IV SCH ×2 (04:19→16:33)
[2018-07-21] MEDS: CARAFATE LIQUID PO SCH ×4 (04:19→20:15)
[2018-07-21] MEDS: ZOSYN 3.375 GM in NS 50 ML IV SCH ×4 (04:19→22:15)
[2018-07-21 05:42] LABS: HEMATOCRIT 30.6 % (42.0-52.0); HEMOGLOBIN 9.6 g/dL (14.0-18.0); MCH 32.4 PG (27-31); MCHC 31.4 g/dL (33-37); MCV 103.4 FL (81-99); MPV 11.5 FL (7.4-10.4); RBC 2.96 XMIL (4.7-6.1); RDW 16.4 % (11.5-14.5); WBC 11.17 X1000 (4.8-10.8)
[2018-07-21 05:57] LABS: ESTIMATED GFR > 60
[2018-07-21 06:08] LABS: AGAP 8; ALB/GLOB RATIO 0.8; ALBUMIN 2.4 g/dL (3.5-5.0); ALKALINE PHOSPHATASE 106 U/L (32-122); BUN 10 mg/dL (8-22); CHLORIDE 92 mmol/L (98-107); COSMO 284; CREATININE 0.7 mg/dL (0.7-1.2); GLUCOSE 101 mg/dL (70-104); GOT 21 U/L (10-34); GPT 41 U/L (10-44); POTASSIUM 2.8 mmol/L (3.5-5.1); SODIUM 143 mmol/L (136-145); TCO2 43 mmol/L (25-35); TOTAL PROTEIN 5.4 g/dL (6.3-8.3)
--- NOTE | 2018-07-21 07:06 | Diag Imaging Result Doc PS360 ---
EXAM: CHEST-PORTABLE 07/21/2018 HISTORY: respiratory failure TECHNIQUE: AP portable at 0615 COMMENT: There is volume loss and platelike opacity in the right upper lobe hazy opacity elsewhere and dense consolidation in the retrocardiac region. There are bilateral pleural fluid collections. There are number of rib fractures on the left. Compared to 07/20/2018 there has been no appreciable change. There is slightly worse atelectasis in the right upper lobe than on 07/19/2018 but otherwise pulmonary edema and pleural effusions have probably improved. IMPRESSION: Pulmonary edema and pleural effusions with superimposed atelectasis and/or pneumonia. Electronically signed by Yimi Khan 07/21/2018 7:04 AM
[2018-07-21] MEDS: MUCOMYST 20% INH SCH ×2 (07:47→20:05)
[2018-07-21] MEDS: PROTONIX IV SCH ×2 (08:32→20:15)
[2018-07-21] MEDS: LOPRESSOR PO SCH ×2 (08:32→20:15)
[2018-07-21] MEDS: IMDUR PO SCH (08:32)
[2018-07-21] MEDS: CULTURELLE PO SCH ×2 (08:32→20:15)
[2018-07-21] MEDS: SODIUM CHLORIDE 0.9% INJ SCH (08:33)
[2018-07-21] MEDS ORDERED: POTASSIUM CHLORIDE 40 MEQ/SWI 40 MEQ/100 ML IVPB IV ONE (09:00)
[2018-07-21] MEDS ORDERED: LASIX IV ONE (09:06)
[2018-07-21 09:21] LABS: MAGNESIUM 1.8 mg/dL (1.5-2.7); PHOSPHORUS 3.6 mg/dL (2.7-4.5)
[2018-07-21 09:38] LABS: BE 22.4 mmoll (-3.0-3.0); BLOOD TYPE ARTERIAL; HCO3-(ACT) 42.4 mmoll (20.0-26.0); METHB 1.5 % (0.0-1.5); O2(CT) 11.8 mL/dL (15.0-23.0); O2HB 96.1 % (95.0-99.0); PO2(98.6) 108 mmHg (60-100); SAMPLE BLOOD; SAO2 99.5 % (95.0-100.0); THB 8.6 g/dL (11.5-17.4)
[2018-07-21 09:42] LABS: ALLEN TEST YES; MODALITY CANNULA; PCO2(98.6) 62 mmHg (35-45)
[2018-07-21] MEDS: POTASSIUM CHLORIDE 20% LIQUID PO SCH ×2 (09:42→20:15)
[2018-07-21] MEDS: VANCOMYCIN 1,800 MG in NS 250 ML IV SCH (09:42)
--- NOTE | 2018-07-21 09:45 | PROGRESS NOTE ---
DATE: 07/21/2018 SUBJECTIVE: Mr. Bullard is doing fair. No high-grade fever or chills. The patient claims he was not able to sleep well last night. Denied any diarrhea, generalized weakness. The patient does have difficulty ambulating. The patient is vague and poor historian. OBJECTIVE: Vital Signs: Noted. Neck: Supple. No JVD. Lungs: Decreased air entry both the bases. Cardiovascular: S1 and S2 heard. Abdomen: Soft, nontender. Bowel sounds present. Extremities: No cyanosis, clubbing. No acute DVT. Central nervous system: Alert, awake able to move all 4 limbs patient. LABORATORY DATA: Done today. WBC count 11.17, hemoglobin 9.6, hematocrit 30.6, platelet count 448,000. Electrolytes. Patient does have hypokalemia I am going to check magnesium and phosphorus level. Chest x-ray did reveal. Retrocardiac consolidation, pulmonary edema and pleural effusion. The patient is on vancomycin and Zosyn. We will encourage pulmonary toilet. I will get blood gas done. Oral intake is poor. I am going to try Clinimix, stop his D5W, continue the rest of the treatment and close observation. Supplement potassium. cc: MD Dylan Richard MD
[2018-07-21] MEDS ORDERED: POTASSIUM CHLORIDE 40 MEQ/SWI 40 MEQ/100 ML IVPB IV PRN ×2 (10:30→10:35)
[2018-07-21] MEDS ORDERED: POTASSIUM CHLORIDE 20% LIQUID PO PRN ×2 (10:39→10:41)
[2018-07-21] MEDS ORDERED: MAG-OX PO PRN (10:44)
[2018-07-21] MEDS ORDERED: MAGNESIUM SULFATE 4 GM/S.W.I. 4 GM/100 ML IVPB IV PRN (10:49)
[2018-07-21] MEDS ORDERED: MAGNESIUM SULFATE 2 GM/S.W.I. 2 GM/50 ML IVPB IV PRN (10:50)
[2018-07-21] MEDS: D5W 1,000 ML IV SCH (16:34)
[2018-07-21] MEDS: FOLIC ACID IV SCH (18:30)
[2018-07-21] MEDS: MAGNESIUM SULFATE IV SCH (18:30)
[2018-07-21] MEDS: M V I IV SCH (18:30)
[2018-07-21] MEDS: THIAMINE IV SCH (18:30)
[2018-07-21] MEDS: NS IV SCH (18:30)
[2018-07-21 18:40] LABS: HEMATOCRIT 32.9 % (42.0-52.0); HEMOGLOBIN 10.1 g/dL (14.0-18.0)
[2018-07-21] MEDS: MORPHINE IV PRN (20:29)
[2018-07-22] MEDS: CARAFATE LIQUID PO SCH ×4 (02:14→20:24)
[2018-07-22] MEDS: DUONEB (A & A) INH SCH ×4 (03:04→22:08)
[2018-07-22] MEDS: ZOSYN 3.375 GM in NS 50 ML IV SCH ×4 (04:13→22:21)
[2018-07-22] MEDS: SOLU-CORTEF IV SCH ×2 (04:13→18:00)
[2018-07-22 04:50] LABS: ALLEN TEST YES; BE 16.4 mmoll (-3.0-3.0); BLOOD TYPE ARTERIAL; HCO3-(ACT) 37.7 mmoll (20.0-26.0); METHB 1.1 % (0.0-1.5); O2(CT) 16.3 mL/dL (15.0-23.0); O2HB 95.4 % (95.0-99.0); PO2(98.6) 87 mmHg (60-100); SAMPLE BLOOD; SAO2 98.5 % (95.0-100.0); THB 12.1 g/dL (11.5-17.4); pH(98.6) 7.42 (7.35-7.45)
[2018-07-22 04:56] LABS: MODALITY CANNULA; PCO2(98.6) 68 mmHg (35-45)
[2018-07-22 05:32] LABS: HEMATOCRIT 31.7 % (42.0-52.0); HEMOGLOBIN 9.8 g/dL (14.0-18.0); MCH 31.6 PG (27-31); MCHC 30.9 g/dL (33-37); MCV 102.3 FL (81-99); MPV 11.2 FL (7.4-10.4); RBC 3.1 XMIL (4.7-6.1); RDW 16.3 % (11.5-14.5); WBC 9.33 X1000 (4.8-10.8)
[2018-07-22 06:07] LABS: AGAP 8; ALB/GLOB RATIO 0.8; ALBUMIN 2.3 g/dL (3.5-5.0); ALKALINE PHOSPHATASE 100 U/L (32-122); BUN 10 mg/dL (8-22); CALCIUM 8.7 mg/dL (8.8-10.2); CHLORIDE 95 mmol/L (98-107); COSMO 280; CREATININE 0.8 mg/dL (0.7-1.2); ESTIMATED GFR > 60; GLUCOSE 89 mg/dL (70-104); GOT 21 U/L (10-34); GPT 34 U/L (10-44); POTASSIUM 3.3 mmol/L (3.5-5.1); SODIUM 141 mmol/L (136-145); TCO2 38 mmol/L (25-35); TOTAL BILIRUBIN 0.41 mg/dL (0.20-1.00); TOTAL PROTEIN 5.3 g/dL (6.3-8.3)
--- NOTE | 2018-07-22 07:27 | Diag Imaging Result Doc PS360 ---
EXAM: CHEST-PORTABLE 07/22/2018 HISTORY: respiratory failure TECHNIQUE: AP portable at 0539 COMMENT: There is atelectasis present in the right upper lobe inferiorly. There is diffuse hazy interstitial opacity and denser opacification in the left lower lobe behind the heart. There is blunting of both costophrenic angles. Compared to 07/21/2018 this has not changed appreciably. IMPRESSION: Pulmonary edema with superimposed atelectasis and/or pneumonia. Electronically signed by Yimi Khan 07/22/2018 7:25 AM
[2018-07-22] MEDS: MUCOMYST 20% INH SCH ×2 (09:22→22:09)
[2018-07-22] MEDS: LOPRESSOR PO SCH ×2 (09:31→20:24)
[2018-07-22] MEDS: CULTURELLE PO SCH ×2 (09:31→20:24)
[2018-07-22] MEDS: VANCOMYCIN 1,800 MG in NS 250 ML IV SCH (09:32)
[2018-07-22] MEDS: PROTONIX IV SCH ×2 (09:32→20:24)
[2018-07-22] MEDS: POTASSIUM CHLORIDE 20% LIQUID PO SCH ×2 (09:32→18:00)
[2018-07-22] MEDS: IMDUR PO SCH (09:32)
[2018-07-22] MEDS: D5W 1,000 ML IV SCH (11:55)
[2018-07-22] MEDS: LASIX IV SCH (13:44)
--- NOTE | 2018-07-22 13:57 | PROGRESS NOTE ---
DATE: 07/22/2018 SUBJECTIVE: Patient is resting comfortably, presently on nasal cannula. He says he has not been able to wear the BiPAP at all and refuses to do so. Says he simply cannot wear it. OBJECTIVE: Afebrile, pulse 79, respirations 18, blood pressure 129/88, O2 saturation on 4 L per nasal cannula of 99%. Is and Os show 2674 in and 3525 out. He is negative over the past 2 days by about 1300 mL. Chest x-ray today shows pulmonary edema with superimposed atelectasis and/or pneumonia, not changed from yesterday's chest x-ray. Lab shows ABG on FiO2 36%, pH 7.42, pCO2 68, PO2 87, HC03 37, O2 saturation 98.5, lactate is 0.7. AA gradient 85. ASSESSMENT: 1. Respiratory failure, status post pulseless electrical activity arrest. 2. Hypercapnia. 3. Alcoholic pancreatitis. 4. Hematemesis with peptic ulcer disease/esophagitis, possibly trauma-related. 5. Non-ST elevation myocardial infarction. 6. Possible pneumonia. PLAN: I encouraged him to wear the BiPAP at night but he says he cannot tolerate it so we will continue to treat him aggressively with oxygen per nasal cannula, DuoNebs. He is also on IV steroids. He is on sucralfate and Protonix. Replete potassium and give another dose of IV Lasix once daily 40 mg. Continue antibiotics in the form of Zosyn and vancomycin. Choir Singer in regard to alcohol cessation. cc: MD Dylan Rivas MD
[2018-07-22] MEDS: THIAMINE IV SCH (18:00)
[2018-07-22] MEDS: NS IV SCH (18:00)
[2018-07-22] MEDS: FOLIC ACID IV SCH (18:00)
[2018-07-22] MEDS: M V I IV SCH (18:00)
[2018-07-22] MEDS: MAGNESIUM SULFATE IV SCH (18:00)
[2018-07-22 18:24] LABS: HEMATOCRIT 32.1 % (42.0-52.0); HEMOGLOBIN 9.8 g/dL (14.0-18.0)
[2018-07-22] MEDS: MORPHINE IV PRN (22:26)
[2018-07-23] MEDS: CARAFATE LIQUID PO SCH ×4 (03:04→20:13)
[2018-07-23] MEDS: DUONEB (A & A) INH SCH ×4 (03:09→19:33)
[2018-07-23] MEDS: ZOSYN 3.375 GM in NS 50 ML IV SCH ×4 (04:28→23:01)
[2018-07-23] MEDS: SOLU-CORTEF IV SCH ×2 (04:28→17:18)
[2018-07-23 05:27] LABS: HEMATOCRIT 31.6 % (42.0-52.0); HEMOGLOBIN 9.6 g/dL (14.0-18.0); MCH 31.4 PG (27-31); MCHC 30.4 g/dL (33-37); MCV 103.3 FL (81-99); MPV 11.4 FL (7.4-10.4); RBC 3.06 XMIL (4.7-6.1); RDW 16.1 % (11.5-14.5); WBC 12.19 X1000 (4.8-10.8)
[2018-07-23] MEDS: D5W 1,000 ML IV SCH ×2 (05:29→06:11)
[2018-07-23 05:50] LABS: AGAP 7; ALB/GLOB RATIO 0.9; ALBUMIN 2.7 g/dL (3.5-5.0); ALKALINE PHOSPHATASE 120 U/L (32-122); BUN 13 mg/dL (8-22); CALCIUM 8.8 mg/dL (8.8-10.2); CHLORIDE 95 mmol/L (98-107); COSMO 278; CREATININE 1.1 mg/dL (0.7-1.2); ESTIMATED GFR > 60; GLUCOSE 106 mg/dL (70-104); GOT 27 U/L (10-34); GPT 42 U/L (10-44); SODIUM 139 mmol/L (136-145); TCO2 37 mmol/L (25-35); TOTAL BILIRUBIN 0.48 mg/dL (0.20-1.00); TOTAL PROTEIN 5.8 g/dL (6.3-8.3)
--- NOTE | 2018-07-23 06:53 | Diag Imaging Result Doc PS360 ---
EXAM: CHEST-PORTABLE HISTORY: respiratory failure TECHNIQUE: Chest single view COMPARISON: 07/22/2018 FINDINGS: No change in the left jugular portacatheter. Poor inspiratory effort. There are increased interstitial markings throughout both lungs. These are more dense within the left lung than they were on the prior study. There are small pleural effusions with basilar atelectasis. IMPRESSION: Mild interval worsening. Electronically signed by Adan Olea 07/23/2018 6:51 AM
--- NOTE | 2018-07-23 07:41 | PROGRESS NOTE ---
DATE: 07/23/2018 SUBJECTIVE: Mr. Bullard is doing fair. Does have cough with scanty sputum production. No high- grade fever or chills. The patient is complaining of generalized weakness. He is able to stand up but not ambulate well. Even at home, the patient claims he needed some assistance to walk. No diarrhea. OBJECTIVE: Vital Signs: His vital signs are noted. Blood pressure 140/93, pulse 93, respirations 24, and temperature 97.9 degrees. Neck: Supple. No JVD. Lungs: Decreased air entry both bases. CVS: S1 and S2 heard. Abdomen: Soft, globular. Bowel sounds present. BANKRUPTCY ASSISTANT: Alert, awake and able to move all 4 limbs. LABORATORY DATA: WBC count 12.19, hemoglobin 9.6, hematocrit 31.6, and platelet count 446,000. Electrolytes result reviewed. ASSESSMENT AND PLAN: The patient does have multiple medical problems including pneumonia, generalized weakness, and pancreatitis improved, GI bleed and alcohol abuse. We will continue current treatment. Close observation. Physical Therapy. Overall plan discussed with the patient. I offered him to go to short-term rehab. The patient understood the importance but declined. cc: MD Dylan Richard MD
[2018-07-23] MEDS: MUCOMYST 20% INH SCH ×2 (07:53→19:33)
[2018-07-23] MEDS: CLINIMIX E 4.25%-5% SOLUTION 1,000 ML IV SCH (08:29)
[2018-07-23] MEDS: PROTONIX IV SCH ×2 (08:30→20:13)
[2018-07-23] MEDS: IMDUR PO SCH (08:30)
[2018-07-23] MEDS: LASIX IV SCH (08:30)
[2018-07-23] MEDS: CULTURELLE PO SCH ×2 (08:30→20:13)
[2018-07-23] MEDS: LOPRESSOR PO SCH ×2 (08:30→20:13)
[2018-07-23] MEDS: POTASSIUM CHLORIDE 20% LIQUID PO SCH ×3 (08:30→20:13)
[2018-07-23] MEDS: VANCOMYCIN 1,800 MG in NS 250 ML IV SCH ×2 (08:33→09:42)
--- NOTE | 2018-07-23 10:25 | GASTROENTEROLOGY PROGRESS NOTE ---
DATE: 07/23/2018 SUBJECTIVE: Patient is resting in bed. He is feeling better. He denies any new complaints. He denies and fevers, rigors, chills, denies any nausea or vomiting. He is moving his bowels. His last bowel movement was today. OBJECTIVE: Vital signs: Temperature 97.9, pulse of 91, respiratory 20, blood pressure 134/91, saturating 92% on 4 L. General Appearance: Thinly built. Lying in bed,in no acute distress. HEENT: Pale conjunctiva no icterus. Nasal cannula in place. Neck: Supple. Abdomen: Soft, nontender, nondistended, no guarding. Extremities: No cyanosis, clubbing or edema. Neurologic: He is alert, awake, oriented x3. LABS: Hemoglobin and hematocrit is 9.2, 31.6, white count of 12.1, platelet count of 446,000. Sodium 139, potassium 4, chloride 95, bicarb 32, anion gap 7, BUN of 13, creatinine 1.1, glucose of 106. Calcium is 8.8, total bilirubin is 0.48, AST 27 ALT 25, ALT 42, alkaline phosphatase 124, total protein is 5.8, total albumin of 2.7. Creatine kinase is 23. B12 1306. Chest x-ray done today showed mild interval worsening. Poor inspiratory effort. Increased interstitial markings throughout both lungs, more dense in the left lung than on the previous study. IMPRESSION AND PLAN: 1. Alcoholic pancreatitis is improved. 2. Severe esophagitis continue proton pump inhibitor b.i.d. 3. Gastric ulcer. Continue proton pump inhibitor b.i.d. Will need repeat esophagogastroduodenoscopy in 3 months. 4. Alcohol abuse. The patient counseled to quit alcohol completely. 5. Chronic smoker. Patient counseled to quit smoking completely. 6. Pneumonia. He is on antibiotics. 7. Anemia being watched for now. We will keep him on multivitamin once daily. Also start him on iron b.i.d. 8. Malnutrition is on Clinimix at 80 mL/hour. 9. He is on intravenous vancomycin Zosyn for pneumonia. 10. Elevated liver enzymes. They are improved completely. 11. Non ST elevation myocardial infarction. Aware. 12. The above plans with the patient and call questions were answered. Please call us with any questions. cc: MD Dylan Galeano MD
[2018-07-23] MEDS: NS IV SCH (18:28)
[2018-07-23] MEDS: MAGNESIUM SULFATE IV SCH (18:28)
[2018-07-23] MEDS: M V I IV SCH (18:28)
[2018-07-23] MEDS: THIAMINE IV SCH (18:28)
[2018-07-23] MEDS: FOLIC ACID IV SCH (18:28)
[2018-07-23] MEDS: ICAR-C PO SCH (20:13)
--- NOTE | 2018-07-23 20:58 | PULMONOLOGY PROGRESS NOTE ---
DATE: 07/23/2018 SUBJECTIVE: The patient is arousable. He is very weak. He has a marginal cough effort. He has a marginal p.o. intake. OBJECTIVE: Vital Signs: He has been afebrile for the last 24 hours. Blood pressure 139/84, heart rate 89, respiratory rate 17, oxygen saturation 98% on 3 L per nasal cannula. HEENT: Pupils are equal. Oropharynx is dry. Neck: Supple. Chest reveals scattered rhonchi bilaterally. Cardiac exam: S1, S2. Abdomen: Soft. Extremities: Reveal generalized weakness. LABORATORIES: Chest x-ray reveals increased interstitial markings bilaterally, slightly more prominent on the left than yesterday with small effusions. Sodium 139, potassium 4.0, chloride 95, bicarbonate 37, BUN 13, creatinine 1.1, glucose 106, total protein 5.8, albumin 2.9. White blood count 12.2, hemoglobin 9.6, platelet count 446,000. IMPRESSION: A 58-year-old with: 1. Acute hypoxemic respiratory failure. 2. Acute hypercapnic respiratory failure. 3. Severe protein calorie malnutrition. 4. Pleural effusions. 5. Alcoholic hepatitis. 6. Esophagitis. 7. Decrease in his performance status due to acute illness and probable chronic alcohol use. RECOMMENDATIONS: 1. Agree with addition of Clinimix. We will check pre-albumin tomorrow. 2. Continue oxygen and BiPAP if needed. 3. Continue physical therapy. 4. Overall prognosis is poor, but he is a relatively young patient at 58. cc: MD Dylan Bess MD
[2018-07-23] MEDS: MORPHINE IV PRN (23:01)
[2018-07-24] MEDS: CARAFATE LIQUID PO SCH ×4 (03:10→20:24)
[2018-07-24] MEDS: CLINIMIX E 4.25%-5% SOLUTION 1,000 ML IV SCH ×2 (03:10→22:31)
[2018-07-24] MEDS: DUONEB (A & A) INH SCH ×4 (03:32→19:13)
[2018-07-24] MEDS: SOLU-CORTEF IV SCH ×2 (04:21→16:44)
[2018-07-24] MEDS: ZOSYN 3.375 GM in NS 50 ML IV SCH ×4 (04:22→22:31)
[2018-07-24 05:54] LABS: HEMOGLOBIN 9.8 g/dL (14.0-18.0); MCH 31.7 PG (27-31); MCHC 30.6 g/dL (33-37); MCV 103.6 FL (81-99); MPV 11.6 FL (7.4-10.4); RBC 3.09 XMIL (4.7-6.1); WBC 12.45 X1000 (4.8-10.8)
[2018-07-24 06:48] LABS: ALB/GLOB RATIO 0.8; ALBUMIN 2.7 g/dL (3.5-5.0); CALCIUM 9.2 mg/dL (8.8-10.2); CREATININE 1.4 mg/dL (0.7-1.2); POTASSIUM 4.7 mmol/L (3.5-5.1); TOTAL BILIRUBIN 0.36 mg/dL (0.20-1.00); TOTAL PROTEIN 6.1 g/dL (6.3-8.3)
--- NOTE | 2018-07-24 07:25 | PROGRESS NOTE ---
DATE: 07/24/2018 SUBJECTIVE: Mr. Bullard is doing fair. No high-grade fever or chills. Denied any nausea or vomiting. Oral intake fair. No dysuria. The patient does have Lyn catheter. He has seems to be taking part in physical therapy, walking a few steps. OBJECTIVE: Vital Signs: Noted. Neck: Supple. No JVD. Lungs: Bilateral good air entry present. Bibasilar crepitations. Cardiovascular: S1 and S2 heard. Abdomen: Soft, globular. Bowel sounds present. Extremities: No cyanosis, clubbing. No acute DVT. Central nervous system: Alert, awake, able to move all 4 limbs. CONSIDERATION: The patient's problems includes significant deconditioning, protein calorie malnutrition, I started him on Clinimix, generalized weakness, esophagitis, and gastritis, alcoholic pancreatitis, pneumonia. LABORATORY DATA: Done today, hemoglobin 9.8, hematocrit 32, WBC count 12.48. Pre-albumin was 17.8. Vitamin B12 level noted. The patient overall prognosis fair to poor. OVERALL PROGNOSIS AND PLAN: Discussed with Dr. Davila. U offered him to go to a retirement short-term, and patient declined. cc: MD Dylan Richard MD
--- NOTE | 2018-07-24 07:34 | Diag Imaging Result Doc PS360 ---
CHEST-PORTABLE - 07/24/2018 INDICATION: respiratory failure COMPARISON: 07/23/2018 FINDINGS: Stable left central line. Stable extensive bilateral predominantly interstitial infiltrates. Stable small bilateral pleural effusions. Heart size remains top normal. IMPRESSION: No change from prior. Electronically signed by Pete Mcpherson 07/24/2018 7:32 AM
[2018-07-24] MEDS: PROTONIX IV SCH ×2 (08:21→20:24)
[2018-07-24] MEDS: IMDUR PO SCH (08:21)
[2018-07-24] MEDS: LOPRESSOR PO SCH ×2 (08:21→20:24)
[2018-07-24] MEDS: POTASSIUM CHLORIDE 20% LIQUID PO SCH ×3 (08:21→20:24)
[2018-07-24] MEDS: ICAR-C PO SCH ×2 (08:21→20:24)
[2018-07-24] MEDS: CULTURELLE PO SCH ×2 (08:21→20:24)
[2018-07-24] MEDS ORDERED: LASIX IV SCH (09:00)
[2018-07-24] MEDS: MUCOMYST 20% INH SCH ×2 (09:04→19:13)
--- NOTE | 2018-07-24 17:23 | PULMONOLOGY PROGRESS NOTE ---
DATE: 07/24/2018 SUBJECTIVE: The patient is awake, alert, and conversant. He has a fair cough effort, but is not clearing his secretions. OBJECTIVE: The patient has been afebrile for the last 24 hours. Blood pressure 138/82, heart rate 93, respiratory rate 18, oxygen saturation 100% on nasal cannula.HEENT: Pupils are equal and reactive. Oropharynx is clear. Neck is supple. Chest reveals scattered rhonchi bilaterally. Cardiac: S1, S2. Abdomen is soft. Extremities reveal generalized weakness. DIAGNOSTIC STUDIES: Serum protein electrophoresis reveals no definite monoclonal band. Immunoglobulin levels are all within normal limits. Sodium 142, potassium 4.7, chloride 97, bicarbonate 38, BUN 23, creatinine 1.4. Pre-albumin is low at 17.8. White blood count 12.45, hemoglobin 9.8, platelet count 263,000. Chest x-ray reveals bilateral pulmonary infiltrates with small effusions. IMPRESSION: A 58-year-old with: 1. History of alcohol abuse with severe deconditioning. 2. Acute hypoxemic and acute hypercapnic respiratory failure. 3. Pleural effusions. 4. Alcoholic hepatitis. 5. Esophagitis. RECOMMENDATIONS: 1. Continue Clinimix due to marginal p.o. intake. We will check magnesium and phosphorus levels tomorrow. 2. Continue to cycle oxygen and BiPAP as needed. 3. Continue physical therapy. Overall prognosis is guarded to poor. cc: MD Dylan Bess MD
[2018-07-24] MEDS: NS IV SCH (18:22)
[2018-07-24] MEDS: M V I IV SCH (18:22)
[2018-07-24] MEDS: FOLIC ACID IV SCH (18:22)
[2018-07-24] MEDS: MAGNESIUM SULFATE IV SCH (18:22)
[2018-07-24] MEDS: THIAMINE IV SCH (18:22)
[2018-07-24] MEDS: MORPHINE IV PRN (21:17)
[2018-07-24] MEDS: CALMOSEPTINE OINTMENT TOP PRN (21:18)
--- NOTE | 2018-07-24 22:40 | PROVIDER PROGRESS NOTE ---
Progress Note SUBJECTIVE: No acute overnight events. No N/V/F, CP, abdominal pain, rectal bleeding, melena. He is tolerating diet. SOB improving. +cough OBJECTIVE: Last Vital Signs Temp 98.4 F 07/24/18 19:42 Pulse 102 H 07/24/18 19:42 Resp 22 07/24/18 19:42 BP 140/84 07/24/18 19:42 Pulse Ox 98 07/24/18 19:42 Height 5 ft 10 in Weight 143 lb 3 oz GEN: awake, alert, NAD HEENT: anicteric, EOMI, MMM NECK: supple, no JVD CV: RRR, no murmurs PULM: coarse BS, no wheezing ABD: soft, NT/ND, NABS, no rebound or guarding EXT: no cce NEURO: nonfocal, AAOx3 LABS: 07/20/18 07/20/18 05:16 05:16 WBC 12.69 H Hgb 10.6 L MCV 103.3 H Plt Count 463 H Sodium 143 Potassium 2.8 L Chloride 92 L Carbon Dioxide 44 H BUN 11 Creatinine 0.7 Glucose 122 H Calcium Phosphorus Magnesium Total Bilirubin 0.51 AST 28 ALT 57 H Alkaline Phosphatase 121 Total Protein 5.6 L Albumin 2.6 L Mr. Parag Bullard is a 58 year old man admitted with acute alcoholic pancreatitis and hematemesis. His course complicated by PEA arrest, acute hypoxemic and hypercapnic respiratory failure, and shock requiring pressors. Other findings include protein calorie malnutrition, hepatic steatosis, refeeding syndrome, thrombocytopenia, hypernatremia, and demand NSTEMI. Renal function preserved. EGD on 07/12 showed severe esophagitis and PUD likely from NGT trauma. Patient was extubated 07/15. He appears to be developing TRISTA with diuresis as Cr doubled overnight. #GI bleedin/2 to esophagitis and PUD; continue PPI BID; avoid NSAIDs #Alcoholic pancreatitis: resolved; patient tolerating diet #Anemia: stable; no overt bleeding; PPI as above #Acute hypoxemic and hypercapnic respiratory failure: improving; pulmonary following, apprec recs #Elevated LFTs: improved #Hepatic steatosis: 2/2 to ROSA M #Refeeding syndrome: replete phosphorus, K as needed #Leukocytosis: from suspected PNA on abx #Protein calorie malnutrition: appreciate nutrition recs #NSTEMI: likely demand; no CP #TRISTA: stopped IV diuretics today Will follow with you. Please call with questions
[2018-07-25] MEDS: CARAFATE LIQUID PO SCH ×4 (02:07→20:15)
[2018-07-25] MEDS: DUONEB (A & A) INH SCH ×4 (03:17→19:40)
[2018-07-25] MEDS: ZOSYN 3.375 GM in NS 50 ML IV SCH ×4 (03:59→22:42)
[2018-07-25] MEDS: SOLU-CORTEF IV SCH ×2 (03:59→16:48)
[2018-07-25 05:24] LABS: HEMATOCRIT 31.2 % (42.0-52.0); HEMOGLOBIN 9.5 g/dL (14.0-18.0); MCH 32.3 PG (27-31); MCHC 30.4 g/dL (33-37); MCV 106.1 FL (81-99); MPV 11.5 FL (7.4-10.4); RBC 2.94 XMIL (4.7-6.1); RDW 15.8 % (11.5-14.5); WBC 11.64 X1000 (4.8-10.8)
[2018-07-25 05:52] LABS: ALB/GLOB RATIO 0.8; ALBUMIN 2.7 g/dL (3.5-5.0); CALCIUM 9.1 mg/dL (8.8-10.2); CREATININE 1.8 mg/dL (0.7-1.2); TOTAL BILIRUBIN 0.3 mg/dL (0.20-1.00)
--- NOTE | 2018-07-25 07:23 | Diag Imaging Result Doc PS360 ---
CHEST-PORTABLE - 07/25/2018 INDICATION: respiratory failure COMPARISON: 07/24/2018 FINDINGS: Stable left central line. Stable finding interstitial background pulmonary edema. Stable bandlike opacity in the right midlung at the right hilum. Stable infiltrates in the lung bases and left apex. Stable small pleural effusions. Heart size remains top normal. IMPRESSION: No change from prior. Electronically signed by Pete Mcpherson 07/25/2018 7:21 AM
--- NOTE | 2018-07-25 07:35 | PROGRESS NOTE ---
DATE: 07/25/2018 SUBJECTIVE: Mr. Bullard is slowly getting better. He was able to ambulate some well yesterday. No high-grade fever or chills. Denied any nausea or vomiting. The patient claimed he was still having diarrhea every time he eats. I did check his total CPK to reevaluate rhabdomyolysis and it is better. Serum protein electrophoresis did reveal possible weak monoclonal band in the gamma region. I am going to get a hematology/oncology evaluation. His vitamin B12 level was normal. The patient does have mild cough with scanty sputum production. Chest x-ray done yesterday revealed stable predominantly interstitial infiltrate. OBJECTIVE: Vital Signs: Noted. Neck: Supple. No JVD. Lungs: Bibasilar crepitations. Heart: S1 and S2 heard. Abdomen: Soft, nontender. Bowel sounds present. Extremities: No cyanosis, clubbing, or edema. QUALITY HEAD: Alert, awake. Able to move all 4 limbs. CONSIDERATION: Patient's problems include: 1. Bronchopneumonia, on antibiotics. We will continue. 2. Renal function seems to be deteriorating. The patient is on Lasix twice a day. The patient is also on Clinimix. I will get proBNP from morning blood, recheck electrolytes in the morning. Continue physical therapy. Discussed with the patient about going to a [facility]. The patient is in agreement. 3. Alcoholic liver disease. 4. Pancreatitis. 5. Generalized debilitating condition and deconditioning. 6. Coronary artery disease. PLAN: Overall plan discussed with the patient. I am going to take Lyn catheter out. cc: MD Dylan Richard MD
[2018-07-25] MEDS: MUCOMYST 20% INH SCH ×2 (09:13→19:40)
[2018-07-25] MEDS: LOPRESSOR PO SCH ×2 (09:18→20:14)
[2018-07-25] MEDS: ICAR-C PO SCH (09:18)
[2018-07-25] MEDS: CULTURELLE PO SCH (09:18)
[2018-07-25] MEDS: PROTONIX IV SCH ×2 (09:18→20:16)
[2018-07-25] MEDS: FLOMAX PO SCH ×2 (09:18→20:14)
[2018-07-25] MEDS: IMDUR PO SCH (09:18)
[2018-07-25] MEDS: POTASSIUM CHLORIDE 20% LIQUID PO SCH ×3 (09:28→17:20)
--- NOTE | 2018-07-25 09:31 | PROVIDER PROGRESS NOTE ---
Progress Note SUBJECTIVE: No acute overnight events. Afebrile. He continues to have cough and SOB unchanged. Bipap overnight helps. No N/V. He is tolerating PO diet, but has poor appetite. +BM that are brown. No abdominal pain or rectal bleeding. OBJECTIVE: Last Vital Signs Temp 97.8 F 07/25/18 07:44 Pulse 86 07/25/18 09:14 Resp 18 07/25/18 09:14 BP 137/82 07/25/18 07:44 Pulse Ox 97 07/25/18 09:14 Height 5 ft 10 in Weight 140 lb 4.8 oz GEN: awake, alert, NAD HEENT: anicteric, EOMI, MMM NECK: supple, no JVD CV: RRR, no murmurs PULM: coarse BS, mild wheezing, particularly on left side ABD: soft, NT/ND, NABS, no rebound or guarding EXT: no cce NEURO: nonfocal, AAOx3 LABS: 07/25/18 07/25/18 04:56 04:56 WBC 11.64 H Hgb 9.5 L Plt Count 355 Sodium 142 Potassium 5.0 Chloride 95 L Carbon Dioxide 39 H BUN 33 H Creatinine 1.8 H Total Bilirubin 0.30 AST 22 ALT 32 Alkaline Phosphatase 109 Total Protein 6.0 L Albumin 2.7 L Prealbumin CHEST-PORTABLE - 07/25/2018 INDICATION: respiratory failure COMPARISON: 07/24/2018 FINDINGS: Stable left central line. Stable finding interstitial background pulmonary edema. Stable bandlike opacity in the right midlung at the right hilum. Stable infiltrates in the lung bases and left apex. Stable small pleural effusions. Heart size remains top normal. IMPRESSION: No change from prior. A/P Mr. Parag Bullard is a 58 year old man admitted with acute alcoholic pancreatitis and hematemesis. His course complicated by PEA arrest, acute hypoxemic and hypercapnic respiratory failure, and shock requiring pressors. Other findings include protein calorie malnutrition, hepatic steatosis, refeeding syndrome, thrombocytopenia, hypernatremia, and demand NSTEMI. EGD on 07/12 showed severe esophagitis and PUD likely from NGT trauma. Patient was extubated 07/15. He appears to be developing TRISTA with diuresis. Stopped diuretics yesterdy given uptrending creatinine. He continues to have UOP. #TRISTA: Cr 1.8 today from 1.4; stopped diuretics yesterday; defer mgmt to primary team #GI bleedin/2 to esophagitis and PUD; resolved; continue PPI BID for 8 weeks; avoid NSAIDs #Alcoholic pancreatitis: resolved; patient tolerating diet #Anemia: stable; no overt bleeding; PPI as above #Poor appetite: stopped iron and probiotic #Elevated LFTs: improved #Hepatic steatosis: 2/2 to ROSA M #Refeeding syndrome: improved #Protein calorie malnutrition: on ensure with meals; appreciate nutrition recs #Acute hypoxemic and hypercapnic respiratory failure; pulmonary following, apprec recs #Pneumonia: on abx as per primary #NSTEMI: likely demand; no CP Will sign off. Please call with questions
[2018-07-25] MEDS: NS IV SCH ×2 (16:48→17:20)
[2018-07-25] MEDS: CLINIMIX E 4.25%-5% SOLUTION 1,000 ML IV SCH ×2 (16:48→20:14)
[2018-07-25] MEDS: FOLIC ACID IV SCH ×2 (16:48→17:20)
[2018-07-25] MEDS: THIAMINE IV SCH ×2 (16:48→17:20)
[2018-07-25] MEDS: M V I IV SCH ×2 (16:48→17:20)
[2018-07-25] MEDS: MAGNESIUM SULFATE IV SCH ×2 (16:48→17:20)
--- NOTE | 2018-07-25 18:58 | HEMO/ONC CONSULTATION ---
DATE: 07/25/2018 REQUESTING PHYSICIAN: Dr. Espino. REASON FOR CONSULTATION: Abnormal SPEP. HISTORY OF PRESENT ILLNESS: Mr. Bullard is a 58-year-old male who was initially admitted back on 07/08/2018 with gastritis and hematemesis. Per review of the chart, it looks like the patient has had multiple hospital admissions previously. Since being hospitalized, he has developed bronchopneumonia. During his workup, an SPEP was performed and showed hi to have a possible weak monoclonal band present in the gamma region. He had immunofixation electrophoresis which actually came back as no monoclonal bands identified. We have been asked to come and evaluate the abnormal serum protein electrophoresis. PAST MEDICAL HISTORY: 1. Hypertension. 2. Previous acute CT. 3. Lupus. 4. History of strokes. 5. Alcoholism. SURGICAL HISTORY: No known surgical history. SOCIAL HISTORY: Patient smokes about 1 pack of cigarettes per day. He is currently in ongoing daily alcohol use. He denies any illicit drug use. REVIEW OF SYSTEMS: A 12 point review of systems has been completed and is negative except for as mentioned in HPI. FAMILY HISTORY: Negative for any hematologic disorders. PHYSICAL EXAMINATION: Vital Signs: Temperature 97.6 degrees, heart rate 85, respirations 19, blood pressure 127/80, O2 saturation 100% on 4 L nasal cannula. General: This is a male in no acute distress, lying in the hospital bed in [facility]. Head: Normocephalic, atraumatic. Eyes: Pupils equal, round, and reactive. Ears, Nose, Throat, Neck, Mouth: The oral mucosa appears to be normal. Gross auditory acuity is intact. Trachea is midline. Cardiovascular: S1, S2 heard. Regular rate and rhythm. Respiratory: Chest is clear with normal respiratory effort. Gastrointestinal: Abdomen is soft. Positive bowel sounds. Musculoskeletal: No bony abnormalities. Extremities: Patient has 2+ bilateral pretibial edema. Right is equal to left. Neurologic: Patient is alert, with no obvious deficits noted. LAB AND STUDIES: SPEP findings as per above. White count is 11.64, hemoglobin 9.5, hematocrit 31.2, platelet count 355,000. Sodium 142, potassium 5.0, chloride 95, CO2 39, BUN 33, creatinine 1.8, glucose is 99, calcium 9.1, uncorrected. ASSESSMENT AND PLAN: 1. Abnormal serum protein electrophoresis. Again, immunofixation electrophoresis shows no monoclonal bands identified. We have a low suspicion that he has any monoclonal disease process. However, for a complete workup, we will order a urine protein electrophoresis as well as a urine immunofixation electrophoresis. Given his elevated creatinine, free light chain analysis at this point would not be beneficial. I will review those results, but again anticipate that there is no underlying issue. We would recommend that the patient continue to follow with his primary care physician once he leaves the hospital. He will not require hematology/oncology followup upon discharge. 2. Bronchopneumonia. Continue management per Dr. Espino and also Dr. Davila. 3. Renal failure, improved definitely since admission. Continue per the primary team and other consultants. 4. Alcoholic liver disease. Gastroenterology is on board. 5. Pancreatitis. Gastroenterology is on board as well for this. Thank you for consulting us on Mr. Bullard. We will continue to follow along and review his results once they become available. We will make any adjustments to our plan as needed. Dictated by ALEKSEY Rick for Akiko Hinojosa MD cc: MD Dylan Torres MD I have seen and examined the patient and agree with the above note. It reflects my history, physical , assessment and plan. Akiko CASTILLO
[2018-07-25] MEDS: MORPHINE IV PRN (20:27)
--- NOTE | 2018-07-25 21:50 | PULMONOLOGY PROGRESS NOTE ---
DATE: 07/25/2018 SUBJECTIVE: The patient is awake, alert and conversant. He reports he stood briefly today. He has a weak cough, but sounds less productive today. OBJECTIVE: Vital Signs: The patient has been afebrile for the last 24 hours. He has had no increase in oxygen requirements. Blood pressure 145/78, heart rate 95, respiratory rate 24, oxygen saturation 97%. HEENT: Pupils are equal and reactive. Oropharynx is clear. Neck: Supple. Chest: Reveals shallow breath sounds bilaterally without wheezing. He does have occasional rhonchi. Cardiac: S1, S2. Abdomen: Soft with positive bowel sounds. Extremities: Are without edema. LABORATORIES: Sodium 142, potassium 5.1, chloride 95, bicarbonate 39, BUN 33, creatinine 1.8. White blood count 11.6, hemoglobin 9.5, platelet count 355,000. Chest x-ray reveals bilateral infiltrates with probable small effusions. IMPRESSION: A 58-year-old with: 1. Acute hypoxemic and acute hypercapnic respiratory failure. 2. Pleural effusion. 3. Alcoholic hepatitis. 4. Alcohol abuse with severe deconditioning. 5. Protein calorie malnutrition. 6. Episode of esophagitis. RECOMMENDATIONS: 1. We will obtain CT scan of the thorax. The patient has not had a CT scan during this hospitalization and his infiltrates have been slow to clear. 2. Continue bronchial hygiene. 3. Continue oxygen or BiPAP as needed. 4. Continue physical therapy. 5. The patient's prognosis is guarded, but he appears to be having some slow improvement. cc: MD Dylan Bess MD
[2018-07-26] MEDS: SOLU-CORTEF IV SCH ×2 (03:12→16:58)
[2018-07-26] MEDS: CARAFATE LIQUID PO SCH ×4 (03:12→22:56)
[2018-07-26] MEDS: DUONEB (A & A) INH SCH ×3 (04:13→15:56)
[2018-07-26] MEDS: ZOSYN 3.375 GM in NS 50 ML IV SCH (04:39)
[2018-07-26 05:49] LABS: HEMATOCRIT 28.5 % (42.0-52.0); HEMOGLOBIN 8.7 g/dL (14.0-18.0); MCH 32.1 PG (27-31); MCHC 30.5 g/dL (33-37); MCV 105.2 FL (81-99); MPV 11.6 FL (7.4-10.4); RBC 2.71 XMIL (4.7-6.1); RDW 15.8 % (11.5-14.5); WBC 11.87 X1000 (4.8-10.8)
[2018-07-26 06:05] LABS: ALB/GLOB RATIO 0.8; ALBUMIN 2.5 g/dL (3.5-5.0); CALCIUM 8.6 mg/dL (8.8-10.2); CREATININE 1.8 mg/dL (0.7-1.2); POTASSIUM 4.5 mmol/L (3.5-5.1); TOTAL BILIRUBIN 0.25 mg/dL (0.20-1.00); TOTAL PROTEIN 5.8 g/dL (6.3-8.3)
--- NOTE | 2018-07-26 07:11 | PROGRESS NOTE ---
DATE: 07/26/2018 SUBJECTIVE: Mr. Bullard is doing fair. The patient does have chest congestion and cough. No nausea or vomiting. Oral intake is poor. The patient is on Clinimix. Also, we are encouraging him to take Ensure or Glucerna. Patient is on proton pump inhibitor for his esophagitis and gastritis. No diarrhea, blood or mucus in the stool. I did stool workup and it was negative. I agree with Dr. Davila's plan to get CT of the chest without contrast for further evaluation. OBJECTIVE: His vital signs as noted.Neck: Supple. No JVD. Lungs: Bibasilar crepitations. Heart: S1 and S2 heard. Abdomen: Soft and globular. Bowel sounds present. FACILITIES OPERATOR: Alert, awake, and able to move all 4 limbs. LABORATORY DATA: The patient's lab data done today, hemoglobin 8.7, hematocrit 28.5, WBC count 11.87 and platelet count 311,000. BUN 36 and creatinine 1.8. CONSIDERATION: 1. Alcoholic pancreatitis doing fair 2. Persistent pneumonia. We will get CT scan of the chest without contrast. I decreased the dose of Zosyn. 3. Significant esophagitis and gastritis. History of GI bleed. 4. Deconditioning. 5. Stool workup was negative. PLAN: I am going to consider discharge planning. Continue the rest of the treatment and close observation. I am going to start the patient on antidepressant. cc: MD Dylan Richard MD
--- NOTE | 2018-07-26 07:22 | Diag Imaging Result Doc PS360 ---
EXAM: CHEST-PORTABLE 07/26/2018 HISTORY: respiratory failure TECHNIQUE: AP portable at [id number] COMMENT: There is a left internal jugular central venous catheter with its tip in the superior vena cava. There are bilateral pleural effusions. There is interstitial and alveolar opacity bilaterally particularly in the left upper lobe and inferior right upper lobe and lung bases. There are bilateral pleural effusions. Compared to 07/25/2018, the inspiration is slightly less optimal in the background pulmonary edema appears somewhat worse. There are worsened alveolar opacities in the left upper lobe compared to 07/24/2018. IMPRESSION: Pulmonary edema and pleural effusions with superimposed atelectasis and/or pneumonia. Electronically signed by Yimi Khan 07/26/2018 7:20 AM
--- NOTE | 2018-07-26 08:14 | Diag Imaging Result Doc PS360 ---
EXAM: CT THORAX W/O CONTRAST HISTORY: persistent pneumonia TECHNIQUE: CT chest without contrast COMPARISON: None. FINDINGS: There is a moderate to large right-sided pleural effusion measuring 6.9 cm posteriorly and inferiorly in the midline. There is a smaller left pleural effusion measuring 3.0 cm. No cardiomegaly. There is pulmonary edema. No thoracic aortic aneurysm. Prominent atherosclerosis. There are calcified mediastinal and right hilar lymph nodes with scattered granuloma. There are multifocal small infiltrates bilaterally. Prominent atelectasis in the lower lobes as well as air bronchograms. Limited images through the upper abdomen reveal fatty infiltration of the liver. There is fluid or inflammation about the pancreas. IMPRESSION: 1.Moderate to large pleural effusions with pulmonary edema 2.Prominent lower lobe atelectasis with multifocal patchy bilateral infiltrates This exam was performed using automated exposure control, adjustment of mA or kV according to patient size, and/or use of iterative reconstruction technique. Electronically signed by Adan Olea 07/26/2018 8:12 AM
[2018-07-26] MEDS: POTASSIUM CHLORIDE 20% LIQUID PO SCH ×3 (08:24→16:59)
[2018-07-26] MEDS: LOPRESSOR PO SCH ×2 (08:25→22:56)
[2018-07-26] MEDS: FLOMAX PO SCH ×2 (08:25→22:56)
[2018-07-26] MEDS: PROTONIX IV SCH ×2 (08:25→22:56)
[2018-07-26] MEDS: IMDUR PO SCH (08:25)
[2018-07-26] MEDS: ZOSYN 2.25 GM in NS 50 ML IV SCH ×3 (10:13→22:56)
[2018-07-26] MEDS: MUCOMYST 20% INH SCH (10:13)
[2018-07-26] MEDS: CLINIMIX E 4.25%-5% SOLUTION 1,000 ML IV SCH ×2 (13:58→14:34)
[2018-07-26] MEDS: MAGNESIUM SULFATE IV SCH (17:52)
[2018-07-26] MEDS: NS IV SCH (17:52)
[2018-07-26] MEDS: M V I IV SCH (17:52)
[2018-07-26] MEDS: THIAMINE IV SCH (17:52)
[2018-07-26] MEDS: FOLIC ACID IV SCH (17:52)
[2018-07-26 18:18] LABS: BASO# 0.17 X1000 (0.0-0.2); BASO% 1.4 % (0.0-0.8); EOS# 0.12 X1000 (0.0-0.7); HEMATOCRIT 30.8 % (42.0-52.0); HEMOGLOBIN 9.3 g/dL (14.0-18.0); IMM GRAN# 0.07 X1000 (0.0-0.04); IMM GRAN% 0.6 % (0.0-0.5); LYMPH# 0.95 X1000 (1.2-3.4); LYMPH% 7.6 % (20.5-51.1); MCH 31.5 PG (27-31); MCHC 30.2 g/dL (33-37); MCV 104.4 FL (81-99); MONO# 0.84 X1000 (0.11-0.59); MONO% 6.8 % (1.7-9.3); MPV 11.8 FL (7.4-10.4); NEUT# 10.29 X1000 (1.4-6.5); NEUT% 82.6 % (42.2-75.2); PLT 313 X1000 (130-400); RBC 2.95 XMIL (4.7-6.1); RDW 15.5 % (11.5-14.5); WBC 12.44 X1000 (4.8-10.8)
--- NOTE | 2018-07-26 20:58 | PULMONOLOGY PROGRESS NOTE ---
DATE: 07/26/2018 SUBJECTIVE: The patient is awake, alert. He is too weak to stand. He does develop shortness of breath with any exertion. OBJECTIVE: The patient has been afebrile. Blood pressure 166/87, heart rate 92, respiratory rate 20, oxygen saturation 94% on BiPAP. HEENT: Pupils are equal and reactive. Oropharynx evaluation is limited with BiPAP in place. Neck is supple. Chest reveals diminished breath sounds bilaterally with occasional rhonchi. Cardiac exam: S1, S2. Abdomen is soft with positive bowel sounds. Extremities reveal trace edema. LABORATORY DATA: Sodium 143, potassium 4.5, chloride 96, bicarbonate 34, BUN 36, creatinine 1.8. DIAGNOSTIC DATA: Chest x-ray reveals bilateral infiltrates and what appears to be small effusions. CT scan of the thorax reveals moderate to large pleural effusions, right slightly greater than left, with infiltrates and bibasilar atelectasis. IMPRESSION: A 58-year-old with: 1. Acute hypoxemic and acute hypercapnic respiratory failure. 2. Bilateral pleural effusions, right greater than left. 3. Alcohol abuse with severe deconditioning. 4. Alcoholic hepatitis. 5. Protein-calorie malnutrition. 6. Episode of esophagitis. DISCUSSION: A 58-year-old with problems outlined above. The patient does have moderate to large pleural effusions. I believe with a thoracentesis from the right hemithorax, he can be liberated from the BiPAP which will help in transitioning him to a rehab bed. This will also help decrease his dyspnea and help in bronchial clearance. PLAN: 1. Proceed with thoracentesis from the right hemithorax. I will place an order and request assistance from Radiology. Appropriate lab work including a PT level has been ordered for tomorrow morning. 2. Continue bronchial hygiene. 3. Continue oxygen or BiPAP as needed. Anticipate liberation of BiPAP with thoracentesis. 4. Continue physical therapy. 5. Anticipate discharge to rehab soon. cc: MD Dylan Bess MD
[2018-07-26] MEDS: REMERON PO SCH (22:56)
[2018-07-27] MEDS: CARAFATE LIQUID PO SCH ×4 (02:06→21:25)
[2018-07-27] MEDS: DUONEB (A & A) INH SCH ×4 (03:20→21:06)
[2018-07-27] MEDS: ZOSYN 2.25 GM in NS 50 ML IV SCH ×4 (05:15→21:26)
[2018-07-27] MEDS: SOLU-CORTEF IV SCH ×2 (05:16→16:02)
[2018-07-27 05:57] LABS: HEMATOCRIT 29.5 % (42.0-52.0); HEMOGLOBIN 8.9 g/dL (14.0-18.0); MCH 31.8 PG (27-31); MCHC 30.2 g/dL (33-37); MCV 105.4 FL (81-99); MPV 12.1 FL (7.4-10.4); RBC 2.8 XMIL (4.7-6.1); RDW 15.5 % (11.5-14.5); WBC 11.35 X1000 (4.8-10.8)
[2018-07-27 06:01] LABS: INR 0.95; PROTIME 13.4 Seconds (11.0-16.0)
[2018-07-27 06:17] LABS: ALB/GLOB RATIO 0.8; ALBUMIN 2.7 g/dL (3.5-5.0); CALCIUM 9.3 mg/dL (8.8-10.2); CREATININE 1.9 mg/dL (0.7-1.2); POTASSIUM 4.8 mmol/L (3.5-5.1); TOTAL BILIRUBIN 0.3 mg/dL (0.20-1.00); TOTAL PROTEIN 6.1 g/dL (6.3-8.3)
[2018-07-27] MEDS: POTASSIUM CHLORIDE 20% LIQUID PO SCH ×3 (08:09→16:03)
[2018-07-27] MEDS: PROTONIX IV SCH ×2 (08:09→21:26)
[2018-07-27] MEDS: FLOMAX PO SCH ×2 (08:10→21:25)
[2018-07-27] MEDS: IMDUR PO SCH (08:10)
[2018-07-27] MEDS: LOPRESSOR PO SCH ×2 (08:10→21:25)
[2018-07-27] MEDS: MUCOMYST 20% INH SCH (10:00)
[2018-07-27] MEDS: CLINIMIX E 4.25%-5% SOLUTION 1,000 ML IV SCH (10:05)
[2018-07-27] MEDS ORDERED: LASIX IV ONE ×2 (13:17→18:45)
--- NOTE | 2018-07-27 14:10 | Diag Imaging Result Doc PS360 ---
EXAM: CHEST-2 VIEWS HISTORY: POST RIGHT U/S THORACENTESIS TECHNIQUE: Inspiratory and expiratory chest, two views COMPARISON: 5:43 AM FINDINGS: Interval decrease in the size of the right-sided pleural effusion following thoracentesis. Partial reexpansion of the right lung. Decreased pulmonary edema. No postprocedural pneumothorax. IMPRESSION: Decrease in the size of the right pleural effusion with no postprocedural pneumothorax Electronically signed by Adan Olea 07/27/2018 2:07 PM
--- NOTE | 2018-07-27 14:13 | PROGRESS NOTE ---
DATE: 07/27/2018 SUBJECTIVE: The patient does have cough, chest congestion, at times, hoarseness of voice. Oral intake is still poor. Generalized weakness. No high-grade fever or chills. We removed Lyn catheter and patient is able to urinate. No nausea or vomiting. OBJECTIVE: Vital Signs: Noted. Neck: Supple. No jugular venous distention Lungs: Decreased air entry, lower lung field. Cardiovascular: S1 and S2 heard. Abdomen: Soft, globular. Bowel sounds present. NETWORK SUPPORT: Alert, awake. Able to move all 4 limbs. DIAGNOSTICS: The patient had CT scan of the chest done yesterday which revealed a moderate to large pleural effusion with pulmonary edema. Multifocal patchy bilateral infiltrate. The patient is still requiring BiPAP at time. LABORATORY DATA: Done today, hemoglobin 8.9, hematocrit 29.5. Electrolytes: BUN 37, creatinine 1.9. The patient is scheduled to have pleural tap today the patient is on IV Clinimix for nutritional support. I am encouraging him to drink Ensure, started him on Remeron to help him rest and as an appetite stimulant. Continue rest of the treatment and close observation. PROBLEM: 1. Bronchopneumonia. 2. Obstructive uropathy. 3. Pleural effusion. 4. Alcohol abuse. 5. Generalized weakness. 6. Deconditioning. cc: MD Dylan Richard MD
--- NOTE | 2018-07-27 14:43 | Diag Imaging Result Doc PS360 ---
EXAM: US THORACENTESIS W/IMAGE GUIDE HISTORY: Pleural effusion, Resp. Failure TECHNIQUE: Ultrasound-guided thoracentesis COMPARISON: None. FINDINGS: Prior to the procedure I discussed the risk and benefits with the patient. Primary risks include bleeding, infection, and pneumothorax. Questions were answered. Consent was given. The permit was signed. Ultrasound was used to localize the largest fluid collection on the right. This area was cleaned and draped in the normal fashion. Lidocaine was used as a local anesthetic. Needle and catheter were advanced into the fluid collection on the first attempt without difficulty. The needle was withdrawn. The catheter was hooked to hand suction. Approximately 1.5L of thin yellowish fluid were withdrawn without difficulty. The catheter was then withdrawn. No immediate postprocedural complications. IMPRESSION: Ultrasound-guided thoracentesis with no immediate complication. Electronically signed by Adan Olea 07/27/2018 2:40 PM
[2018-07-27 14:59] LABS: PH BODY FLUID 8
[2018-07-27 15:07] LABS: BODY FLUID SOURCE PLEURAL FLUID; SPECIMEN PLEURAL FLUID
[2018-07-27 15:08] LABS: WBC BF 161 /cumm
[2018-07-27 15:19] LABS: MONOS 68 %; POLYS 32 %
[2018-07-27 15:23] LABS: AMYLASE BODY FLUID 18 U/L; GLUCOSE BODY FLUID 126 mg/dL; LDH BODY FLUID 110 U/L; TOTAL PROT BODY FLUID 1.8 g/dL
--- NOTE | 2018-07-27 16:57 | Diag Imaging Result Doc PS360 ---
EXAM: CHEST-2 VIEWS HISTORY: post thoracentesis TECHNIQUE: Inspiratory and expiratory chest, two views COMPARISON: 2:02 PM FINDINGS: No pneumothorax identified. There is a small right effusion which remains and there are increased interstitial markings which persist. IMPRESSION: No postprocedural pneumothorax. Electronically signed by Adan Olea 07/27/2018 4:54 PM
[2018-07-27] MEDS: VANCOMYCIN 1 GM/NS 1 GM/250 ML IVPB IV SCH (17:11)
[2018-07-27] MEDS: THIAMINE IV SCH (18:05)
[2018-07-27] MEDS: NS IV SCH (18:05)
[2018-07-27] MEDS: MAGNESIUM SULFATE IV SCH (18:05)
[2018-07-27] MEDS: M V I IV SCH (18:05)
[2018-07-27] MEDS: FOLIC ACID IV SCH (18:05)
--- NOTE | 2018-07-27 20:23 | PULMONOLOGY PROGRESS NOTE ---
DATE: 07/27/2018 SUBJECTIVE: The patient underwent thoracentesis earlier this morning. He reports his breathing has improved. He is now off his BiPAP. He is eating without difficulty. He does want to wear his BiPAP another night. OBJECTIVE: Vital Signs: Blood pressure 145/78, heart rate 93, respiratory rate 17, oxygen saturation 98% on 6 L per nasal cannula. HEENT: Pupils are equal and reactive. Oropharynx is clear. Neck: Is supple. Chest: Reveals coarse breath sounds bilaterally with faint wheezing on exhalation. Cardiac: S1-S2. Abdomen: Is soft without hepatosplenomegaly. Extremities: Reveal decreasing edema. LABORATORIES: Pleural fluid reveals a total protein of 1.8, glucose 126, white blood count 161, pH of 8.0. Chest x-ray following thoracentesis reveals significant decrease in effusion on the right side. IMPRESSION: A 58-year-old with 1. Acute hypoxemic and acute hypercapnic respiratory failure. 2. Bilateral pleural effusion status post thoracentesis. 3. Alcohol abuse with severe deconditioning. 4. Protein calorie malnutrition. PLAN: 1. Continue to wean oxygen and BiPAP as tolerated. 2. Continue bronchial hygiene. 3. Keep a negative fluid balance as tolerated. 4. Anticipate discharge to rehab early next week if he continues to improve. cc: MD Dylan Bess MD
[2018-07-27] MEDS: REMERON PO SCH (21:25)
[2018-07-27] MEDS: MORPHINE IV PRN (21:47)
[2018-07-28] MEDS: CARAFATE LIQUID PO SCH ×4 (01:40→20:49)
[2018-07-28] MEDS: DUONEB (A & A) INH SCH ×5 (03:13→22:15)
[2018-07-28] MEDS: ZOSYN 2.25 GM in NS 50 ML IV SCH ×4 (05:13→21:50)
[2018-07-28] MEDS: SOLU-CORTEF IV SCH ×2 (05:13→15:55)
[2018-07-28] MEDS ORDERED: LASIX IV ONE (06:00)
[2018-07-28 06:38] LABS: ALB/GLOB RATIO 0.9; ALBUMIN 2.7 g/dL (3.5-5.0); CALCIUM 9.2 mg/dL (8.8-10.2); POTASSIUM 4.6 mmol/L (3.5-5.1); TOTAL BILIRUBIN 0.26 mg/dL (0.20-1.00); TOTAL PROTEIN 5.7 g/dL (6.3-8.3)
[2018-07-28] MEDS: CLINIMIX E 4.25%-5% SOLUTION 1,000 ML IV SCH (06:48)
[2018-07-28 07:01] LABS: HEMATOCRIT 29.5 % (42.0-52.0); MCH 31.3 PG (27-31); MCHC 30.5 g/dL (33-37); MCV 102.4 FL (81-99); MPV 12.1 FL (7.4-10.4); RBC 2.88 XMIL (4.7-6.1); RDW 16.2 % (11.5-14.5); WBC 12.57 X1000 (4.8-10.8)
[2018-07-28] MEDS: POTASSIUM CHLORIDE 20% LIQUID PO SCH ×3 (09:07→18:20)
[2018-07-28] MEDS: IMDUR PO SCH (09:07)
[2018-07-28] MEDS: LOPRESSOR PO SCH ×2 (09:07→20:49)
[2018-07-28] MEDS: PROTONIX IV SCH ×2 (09:07→20:49)
[2018-07-28] MEDS: FLOMAX PO SCH ×2 (09:08→20:49)
--- NOTE | 2018-07-28 09:20 | PROGRESS NOTE ---
DATE: 07/28/2018 SUBJECTIVE: Mr. Bullard is doing fair, complaining of being weak. No high-grade fever or chills. No nausea or vomiting. Tolerating food well. Patient tolerated thoracentesis well. He had 1.5 liters of pleural fluid tap yesterday by radiologist. The patient is still using BiPAP. OBJECTIVE: Vital Signs: His vital signs noted. Neck: Supple. No JVD. Lungs: Decreased air entry both bases bilateral. A few inspiratory crepitations. CVS: S1 and S2 heard. Abdomen: Soft, globular. Bowel sounds present. DRESS MARKER: Alert, awake, able to move all 4 limbs. LAB DATA: Lab data done today: WBC count 12.57, hemoglobin 9, hematocrit 29.5, platelet count 291. BUN 45, creatinine was 2. The rest of the electrolytes noted. CONSIDERATION: 1. Bronchopneumonia. 2. Pleural effusion. 3. Respiratory failure. 4. Alcohol abuse. 5. Protein calorie malnutrition. 6. Acute hypoxemic and hypercapnic respiratory failure. 7. Renal failure. PLAN: Labs and medication noted. We will continue current treatment and close observation. cc: MD Dylan Richard MD
[2018-07-28] MEDS: NS IV SCH (18:20)
[2018-07-28] MEDS: FOLIC ACID IV SCH (18:20)
[2018-07-28] MEDS: THIAMINE IV SCH (18:20)
[2018-07-28] MEDS: M V I IV SCH (18:20)
[2018-07-28] MEDS: MAGNESIUM SULFATE IV SCH (18:20)
--- NOTE | 2018-07-28 19:55 | PULMONOLOGY PROGRESS NOTE ---
DATE: 07/28/2018 SUBJECTIVE: The patient currently is on nasal cannula. He reports his breathing has improved. He remains extremely weak. OBJECTIVE: Blood pressure 140/76, heart rate 96, respiratory rate 17, oxygen saturation 100% on nasal cannula. HEENT: Pupils are equal and reactive. Oropharynx is clear. Neck is supple. Chest reveals better air flow bilaterally, with decreased wheezing. Cardiac exam: S1, S2. Abdomen is soft. Extremities reveal generalized weakness. LABORATORY DATA: Sodium 144, potassium 4.6, chloride 98, bicarbonate 35, BUN 45, creatinine 2.0. ProBNP is elevated at 7720. IMPRESSION: A 58-year-old with: 1. Acute hypoxemic and acute hypercapnic respiratory failure. 2. Bilateral pleural effusions. 3. Protein-calorie malnutrition. 4. Chronic renal insufficiency. 5. Alcohol abuse with severe deconditioning. PLAN: 1. Continue to wean oxygen as tolerated. 2. Continue bronchial hygiene. 3. Follow up with a chest x-ray and arterial blood gas tomorrow. cc: MD Dylan Bess MD
[2018-07-28] MEDS: REMERON PO SCH (20:49)
[2018-07-28] MEDS: CALMOSEPTINE OINTMENT TOP PRN (21:51)
[2018-07-28] MEDS: MORPHINE IV PRN (22:19)
[2018-07-29] MEDS: CLINIMIX E 4.25%-5% SOLUTION 1,000 ML IV SCH ×2 (02:27→23:06)
[2018-07-29] MEDS: CARAFATE LIQUID PO SCH ×4 (02:28→20:24)
[2018-07-29] MEDS: DUONEB (A & A) INH SCH ×4 (03:07→21:32)
[2018-07-29] MEDS: SOLU-CORTEF IV SCH ×2 (04:32→15:03)
[2018-07-29] MEDS: ZOSYN 2.25 GM in NS 50 ML IV SCH ×4 (04:32→22:07)
[2018-07-29 04:47] LABS: ALLEN TEST YES; BE 14.4 mmoll (-3.0-3.0); BLOOD TYPE ARTERIAL; HCO3-(ACT) 36.2 mmoll (20.0-26.0); METHB 1.2 % (0.0-1.5); O2(CT) 4.7 mL/dL (15.0-23.0); O2HB 93.4 % (95.0-99.0); PO2(98.6) 58 mmHg (60-100); SAMPLE BLOOD; SAO2 96.3 % (95.0-100.0); THB 3.5 g/dL (11.5-17.4); pH(98.6) 7.44 (7.35-7.45)
[2018-07-29 04:57] LABS: MODALITY CANNULA; PCO2(98.6) 58 mmHg (35-45)
[2018-07-29 06:04] LABS: HEMATOCRIT 31.2 % (42.0-52.0); HEMOGLOBIN 9.5 g/dL (14.0-18.0); MCH 31.3 PG (27-31); MCHC 30.4 g/dL (33-37); MCV 102.6 FL (81-99); MPV 11.9 FL (7.4-10.4); RBC 3.04 XMIL (4.7-6.1); RDW 16.1 % (11.5-14.5); WBC 12.31 X1000 (4.8-10.8)
[2018-07-29 06:45] LABS: ALB/GLOB RATIO 1.1; ALBUMIN 2.8 g/dL (3.5-5.0); CALCIUM 8.8 mg/dL (8.8-10.2); CREATININE 2.2 mg/dL (0.7-1.2); POTASSIUM 5.4 mmol/L (3.5-5.1); TOTAL BILIRUBIN 0.32 mg/dL (0.20-1.00); TOTAL PROTEIN 5.4 g/dL (6.3-8.3)
--- NOTE | 2018-07-29 07:12 | Diag Imaging Result Doc PS360 ---
CHEST-PORTABLE - 07/29/2018 INDICATION: abnormal exam COMPARISON: 07/27/2018 FINDINGS: Stable left central line. Lung volumes are improved. Heart size is top normal. Stable diffuse bilateral infiltrates. Stable small to moderate left-sided pleural effusion. No significant effusion on the right side. IMPRESSION: Improved lung volumes, otherwise no change from prior. Electronically signed by Pete Mcpherson 07/29/2018 7:09 AM
[2018-07-29] MEDS: POTASSIUM CHLORIDE 20% LIQUID PO SCH ×3 (08:13→16:43)
[2018-07-29] MEDS: PROTONIX IV SCH ×2 (09:50→22:07)
--- NOTE | 2018-07-29 09:53 | PROGRESS NOTE ---
DATE: 07/29/2018 SUBJECTIVE: The patient has no new complaints today. He is on his BiPAP. He says he is not hurting anywhere. Chest x-ray shows increased lung volumes but otherwise about the same as previous. OBJECTIVE: Vital signs: Blood pressure is 158/86, respirations 18, pulse 100, temperature 98.6 degrees Fahrenheit. HEENT: Normocephalic. EOMs intact. PERRLA. Throat clear. Lungs: Rales in the bases bilaterally. Heart: Regular rate and rhythm, without murmurs, gallops or friction rubs. Abdomen: Soft with active bowel sounds. No organomegaly or tenderness. DIAGNOSTIC DATA: White count is 12,310, hemoglobin 9.5. Blood gas shows a pH of 7.44, pCO2 of 58, pO2 of 58 on 40% FiO2. Creatinine is 2.2. BUN is 28, potassium slightly up at 5.4. Other electrolytes essentially normal. ASSESSMENT: 1. Respiratory failure. 2. Pneumonia. 3. Status post cardiac arrest. 4. Pancreatitis. 5. Pleural effusions. 6. Renal failure. PLAN: Continue to support. cc: MD Dylan Mead Jr, MD
[2018-07-29] MEDS: FLOMAX PO SCH ×2 (11:15→22:07)
[2018-07-29] MEDS: LOPRESSOR PO SCH ×2 (11:15→22:07)
[2018-07-29] MEDS: IMDUR PO SCH (11:15)
--- NOTE | 2018-07-29 20:19 | PULMONOLOGY PROGRESS NOTE ---
DATE: 07/29/2018 SUBJECTIVE: The patient is awake, alert and sitting in a chair. He denies shortness of breath. He does appear to have mild work of breathing. OBJECTIVE: BP 148/85, heart rate 90, respiratory rate 17, oxygen saturation 92%. HEENT: Pupils are equal and reactive. Oropharynx is clear. Neck: Is supple. Chest: Reveals diminished breath sounds both lung bases. Cardiac: S1, S2. Abdomen: Is soft. Extremities: Reveal 1+ peripheral edema. LABORATORIES: Chest x-ray reveals bilateral infiltrates with probable small left-sided pleural effusion. It is difficult to see any effusion on the right which has undergone thoracentesis. Arterial blood gas pH 7.44, pCO2 of 58, pO2 of 58 on 4 L per nasal cannula. White blood count 12.3, hemoglobin 9.5, platelet count 308,000. Pleural fluid cultures are negative . IMPRESSION: 1. A 58-year-old with acute hypoxemic and acute hypercapnic respiratory failure. He has been on nasal cannula but is back on BiPAP now. 2. Bilateral pleural effusion status post thoracentesis. 3. Protein calorie malnutrition. 4. Chronic renal insufficiency. 5. Alcohol use/abuse with severe deconditioning. PLAN: 1. Continue current treatment regimen. 2. Consider thoracentesis from the left hemithorax. 3. Continue current steroid dosing. 4. Continue current antibiotic regimen. 5. Consider transfer to rehab when he is shown definite clinical improvement. cc: MD Dylan Bess MD
[2018-07-29] MEDS: REMERON PO SCH (22:07)
[2018-07-29] MEDS: SODIUM CHLORIDE 0.9% INJ SCH (22:09)
[2018-07-30] MEDS: CARAFATE LIQUID PO SCH ×4 (02:22→19:25)
[2018-07-30] MEDS: DUONEB (A & A) INH SCH ×4 (03:13→21:30)
[2018-07-30] MEDS: SOLU-CORTEF IV SCH ×2 (03:38→15:14)
[2018-07-30] MEDS: ZOSYN 2.25 GM in NS 50 ML IV SCH ×3 (03:39→15:15)
[2018-07-30 05:32] LABS: HEMATOCRIT 29.2 % (42.0-52.0); MCH 31.8 PG (27-31); MCHC 30.8 g/dL (33-37); MCV 103.2 FL (81-99); MPV 11.9 FL (7.4-10.4); RBC 2.83 XMIL (4.7-6.1); RDW 15.2 % (11.5-14.5); WBC 10.41 X1000 (4.8-10.8)
[2018-07-30 05:59] LABS: ALB/GLOB RATIO 0.9; ALBUMIN 2.7 g/dL (3.5-5.0); CALCIUM 9.1 mg/dL (8.8-10.2); CREATININE 2.2 mg/dL (0.7-1.2); POTASSIUM 4.3 mmol/L (3.5-5.1); TOTAL BILIRUBIN 0.33 mg/dL (0.20-1.00); TOTAL PROTEIN 5.8 g/dL (6.3-8.3)
[2018-07-30] MEDS: MUCOMYST 20% INH SCH (06:26)
--- NOTE | 2018-07-30 07:44 | PROGRESS NOTE ---
DATE: 07/30/2018 SUBJECTIVE: Mr. Bullard is doing fair. The patient does have cough and chest congestion. He does require BiPAP during the day and night, gets short of breath easily. Oral intake is still poor. No high-grade fever or chills. Cough with expectoration. Denied any nausea or vomiting. OBJECTIVE: Vital Signs: Noted. Neck: Supple. No JVD. Lungs: Decreased air entry at both the bases. Cardiovascular: S1 and S2 heard. Abdomen: Soft, globular. Bowel sounds present. SEAMLESS HOSIERY KNITTER: Alert, awake. Able to move all 4 limbs. Laboratory Data: Done today, WBC count 9, hemoglobin 29.2, platelets 281,000, Electrolytes: BUN 47, creatinine 2.2. The patient is on IV antibiotics. PROBLEM LIST: 1. Pleural effusion. 2. Status post cardiac arrest. 3. Acute kidney injury. 4. Benign prostatic hypertrophy. PLAN: I am going to continue current treatment. Close observation. I do not think patient is ready to be discharged yet. He is high risk for readmission. We will continue current treatment. I am going to get followup with glass belt sander for deteriorating renal function. Continue rest of the treatment and close observation. cc: MD Dylan Richard MD MTDD
[2018-07-30] MEDS: SODIUM CHLORIDE 0.9% INJ SCH ×2 (08:30→21:35)
[2018-07-30] MEDS: PROTONIX IV SCH ×2 (08:30→21:35)
[2018-07-30] MEDS: POTASSIUM CHLORIDE 20% LIQUID PO SCH ×3 (08:30→17:08)
[2018-07-30] MEDS: IMDUR PO SCH (08:31)
[2018-07-30] MEDS: FLOMAX PO SCH (08:31)
[2018-07-30] MEDS: LOPRESSOR PO SCH ×2 (08:31→21:34)
[2018-07-30 10:11] LABS: URINE SOURCE VOIDED
[2018-07-30 10:16] LABS: BILIRUBIN URINE NEGATIVE (NEGATIVE); BLOOD URINE NEGATIVE (NEGATIVE); COLOR YELLOW; GLUCOSE URINE NEGATIVE (NEGATIVE); KETONE URINE NEGATIVE (NEGATIVE); LEUKOCYTES URINE NEGATIVE (NEGATIVE); NITRITE URINE NEGATIVE (NEGATIVE); PH URINE 7.5; PROTEIN URINE TRACE mg/dL (NEGATIVE); SP GRAVITY URINE 1.006; TURBIDITY URINE CLEAR (CLEAR); UROBILINOGEN URINE NORMAL (NORMAL)
[2018-07-30 10:17] LABS: UR EPITHELIAL CELLS <10 /HPF (<10); URINE BACTERIA NEGATIVE /HPF; URINE RBC <10 /HPF (<10); URINE WBC <10 /HPF (<10)
[2018-07-30 10:27] LABS: UR PROT RANDOM 21.6 mg/dL
--- NOTE | 2018-07-30 10:34 | NEPHROLOGY PROGRESS NOTE ---
DATE: 07/30/2018 SUBJECTIVE: The patient is sitting up in bed. He has no complaints this morning. OBJECTIVE: Vital Signs: Temperature 98.1 degrees, pulse 70, respiratory rate 20, blood pressure 134/79. Intake 2 L, output 2.3 L. General: This is a middle-aged gentleman resting in bed. He is awake and alert. He is in no acute distress. HEENT: Normocephalic, atraumatic. He has glasses on. Conjunctivae are pale. Oral mucosa moist. Neck: Supple without JVD. Cardiovascular: Regular rate and rhythm with a gallop. Pulmonary: He has decreased breath sounds but no rales or rhonchi. He has been on BiPAP at night and occasionally during the day. Abdomen: Soft, with positive bowel sounds. : Not inspected. Extremities: He has dependent edema. Lower extremities 1+ pitting up to the thighs. : He is voiding. Integumentary: Skin is pale, warm, and dry. LABORATORY DATA: WBC of 10.4, hemoglobin 9.1. Sodium 144, potassium 4.3, chloride 99, CO2 33, BUN 47, creatinine 2.2. His creatinine has risen from 07/23/2018 of 1.1 consistently now to 2.2. His albumin is 2.7. Calcium is 9.1. ASSESSMENT AND PLAN: 1. Respiratory failure status post cardiac arrest. Continues to improve. Remains on BiPAP. Remains followed by Pulmonology. 2. Bilateral pleural effusions status post thoracentesis. Followed by primary and Pulmonology. 3. Acute on chronic kidney disease. We had seen this patient earlier in the hospitalization. At that time, his renal function was fairly normal although he did have electrolyte imbalance. He had some adjustments made to his medication regimen and that resolved. His creatinine now is elevated at 2.2. It has been stable overnight but has had a slow increase over the last week or so. I will order urine studies and an ultrasound today. The patient does have TPN infusing and other than that drinks Ensure. It may just be that he is slowly becoming fluid volume depleted with some third spacing noted. His albumin level is low modestly. Once we get urine studies back, we will make some further decisions as far as treatment plan. He does not have any absolute indications for intervention such as dialysis today. Dictated by NAMRATA Sim for Dimitrios Barnard MD Face to face encounter, data reviewed, discussed with Amparo Glasgow on 07/30/18. I agree with the above assessment and plan of care. cc: MD Dylan Payan MD [facility]
--- NOTE | 2018-07-30 14:25 | Diag Imaging Result Doc PS360 ---
EXAM: US RENAL 2 (RETROPER) COMPLETE INDICATION: decreased renal function TECHNIQUE: COMPARISON: 06/29/2018 FINDINGS: The kidneys are grossly normal in echotexture with no discrete renal mass or hydronephrosis. The right kidney measures 12.4 cm and the left kidney measures 13.2 cm in the greatest longitudinal axes. The right renal cortex measures 1.7 cm and the left renal cortex measures 1.8 cm in thickness. The prostate measures 3.0 x 3.7 x 2.7 cm. The urinary bladder is unremarkable. Incidentally, there is a large amount of sludge in the gallbladder lumen. No gallbladder wall thickening or pericholecystic fluid is appreciated. IMPRESSION: 1.Unremarkable renal ultrasound. 2.Incidental gallbladder sludge. Electronically signed by Konstantin Shabazz 07/30/2018 2:23 PM
--- NOTE | 2018-07-30 15:36 | HEMO/ONC PROGRESS NOTE ---
DATE: 07/30/2018 We received the UPEP back from Mr. Bullard. It shows no monoclonal band identified. No evidence of any underlying monoclonal disorder at this time. We again recommend that he have a recheck in about 1 year with his primary care physician. No need to follow up with us as an outpatient. We will sign off for now. We will be available again if needed during this hospitalization. Dictated by ALEKSEY Rick for Akiko Hinojosa MD cc: MD Dylan Torres MD
[2018-07-30] MEDS: VANCOMYCIN 1 GM/NS 1 GM/250 ML IVPB IV SCH (17:49)
[2018-07-30] MEDS: CLINIMIX E 4.25%-5% SOLUTION 1,000 ML IV SCH (19:25)
--- NOTE | 2018-07-30 21:03 | PULMONOLOGY PROGRESS NOTE ---
DATE: 07/30/2018 SUBJECTIVE: The patient reports he did stand and walk a brief distance today. He does get short of breath. He continues to have poor p.o. intake. OBJECTIVE: Vital Signs: Blood pressure 127/85, heart rate 77, respiratory rate 18, oxygen saturation 100% on BiPAP. HEENT: Pupils are equal and reactive. Oropharynx is clear. Neck: Is supple. Chest: Reveals prolonged expiratory phase with decreased breath sounds in both lung bases. Cardiac: S1-S2. Abdomen: Is soft. Extremities: Reveal trace edema. LABORATORIES: Renal ultrasound reveals normal appearing kidneys. White blood count 10.4, hemoglobin 9.0, platelet count 281,000. Sodium 144, potassium 4.3, chloride 99, bicarbonate 33, BUN 47, creatinine 2.2. ProBNP 7720. IMPRESSION: 1. A 58-year-old with acute hypoxemic and acute hypercapnic respiratory failure. 2. Bilateral pleural effusions. 3. Acute on chronic renal insufficiency. 4. Protein calorie malnutrition. 5. Alcohol abuse with severe deconditioning. DISCUSSION: A 58-year-old with problems outlined above. He continues to have an elevation in his BUN and creatinine. The only consistent finding has been the use of vancomycin and Zosyn for the last several weeks. It is possible that his kidneys have not recovered because of a drug-induced renal injury. There is an increased risk of acute kidney injury with vancomycin and Zosyn, but it may be because sicker patients use this combination. However, he has not had Staph aureus identified in any cultures. RECOMMENDATIONS: 1. Discontinue vancomycin and Zosyn. 2. Initiate reduced dose levofloxacin. 3. Send procalcitonin level. If low, would discontinue all antibiotics. 4. Anticipate rehab when he has demonstrated clinical improvement. cc: MD Dylan Bess MD
[2018-07-30] MEDS: LEVAQUIN 250 MG/D5W 250 MG/50 ML IVPB IV SCH (21:34)
[2018-07-30] MEDS: REMERON PO SCH (21:34)
[2018-07-31] MEDS: CARAFATE LIQUID PO SCH ×4 (01:40→21:19)
[2018-07-31] MEDS: DUONEB (A & A) INH SCH ×4 (03:24→21:25)
[2018-07-31] MEDS: SOLU-CORTEF IV SCH ×2 (03:24→21:19)
[2018-07-31 05:31] LABS: HEMATOCRIT 27.5 % (42.0-52.0); HEMOGLOBIN 8.3 g/dL (14.0-18.0); MCH 31.2 PG (27-31); MCHC 30.2 g/dL (33-37); MCV 103.4 FL (81-99); MPV 11.1 FL (7.4-10.4); RBC 2.66 XMIL (4.7-6.1); RDW 15.5 % (11.5-14.5); WBC 9.1 X1000 (4.8-10.8)
--- NOTE | 2018-07-31 07:26 | Diag Imaging Result Doc PS360 ---
EXAM: CHEST-PORTABLE 07/31/2018 HISTORY: abnormal exam TECHNIQUE: AP portable at 0621 COMMENT: There is hazy opacity throughout both lungs which has improved slightly since the previous examination of 07/29/2018. Part of the chest is obscured by the patient's hands. IMPRESSION: Improved pulmonary edema. Electronically signed by Yimi Khan 07/31/2018 7:23 AM
--- NOTE | 2018-07-31 07:37 | PROGRESS NOTE ---
DATE: 07/31/2018 SUBJECTIVE: Mr. Bullard is feeling some better. He started ambulating with physical therapy some. Oral intake is still poor. No nausea or vomiting. No high-grade fever or chills. Denied any chest pain. The patient does have generalized weakness. The patient is still requiring BiPAP. OBJECTIVE: Vital Signs: Noted. Neck: Supple. No JVD. Lungs: Bibasilar crepitation. Heart: S1 and S2 heard. Abdomen: Soft, globular. Bowel sounds present. LITIGATION CLAIM REPRESENTATIVE: Alert, awake, able to move all 4 limbs. LABORATORY DATA: Today, hemoglobin 8.3, hematocrit 27.5, WBC count 9.1, platelet count 269,000. His electrolytes are pending. Renal function done yesterday noted. ASSESSMENT AND PLAN: Recruitment And Outreach Assistant following patient with us. Talked to Dr. Barnard today and recommendation noted. Agreed with Dr. Cortez recommendation, changing Zosyn and vancomycin. We will continue Levaquin. Encourage pulmonary toilet. The patient does have acute on chronic respiratory failure, pleural effusion, generalized weakness, anemia, most likely of chronic disease, renal failure. The patient will be benefitted from blood transfusion. With his compromised cardiopulmonary status, I am going to give him 1 unit packed RBC. Planning to transfer patient to telemetry bed. Continue rest of the treatment and close observation. cc: MD Dylan Richard MD MTDD
[2018-07-31] MEDS: IMDUR PO SCH (08:40)
[2018-07-31] MEDS: POTASSIUM CHLORIDE 20% LIQUID PO SCH ×3 (08:40→21:19)
[2018-07-31] MEDS: PROTONIX IV SCH ×2 (08:40→21:19)
[2018-07-31] MEDS: LOPRESSOR PO SCH ×2 (08:40→21:20)
[2018-07-31] MEDS: FLOMAX PO SCH (08:40)
[2018-07-31 08:50] LABS: ALB/GLOB RATIO 0.9; ALBUMIN 2.7 g/dL (3.5-5.0); CREATININE 2.2 mg/dL (0.7-1.2); POTASSIUM 4.9 mmol/L (3.5-5.1); TOTAL BILIRUBIN 0.25 mg/dL (0.20-1.00); TOTAL PROTEIN 5.7 g/dL (6.3-8.3)
--- NOTE | 2018-07-31 08:53 | NEPHROLOGY PROGRESS NOTE ---
DATE: 07/31/2018 SUBJECTIVE: He is still on BiPAP. He is lying flat in bed. Denies pain, shortness of breath or other complaints. OBJECTIVE: Vital Signs: Blood pressure 148/85, heart rate 69, respirations 15, afebrile. Weight 70.4 kg. Intake 800 mL. Output 400 mL. General: No acute distress. Skin: Warm and dry. Neck: Neck veins are not appreciated. Heart: Regular. No gallops. Lungs: Equal. A few scattered crackles. No wheezes. Abdomen: Soft, nontender. Bowel sounds present. Extremities: No edema, clubbing or cyanosis. IMPRESSION AND PLAN: 1. Acute kidney injury. Creatinine is stable over the last 24 hours. Likely related to nephrotoxic medications. His labs are stable today. The vancomycin has been discontinued. cc: MD Dylan Payan MD
[2018-07-31] MEDS ORDERED: NS 250 ML IV SCH (09:15)
[2018-07-31] MEDS ORDERED: NS 500 ML ONE (09:29)
[2018-07-31] MEDS ORDERED: NS 500 ML IV SCH (09:45)
[2018-07-31] MEDS: CLINIMIX E 4.25%-5% SOLUTION 1,000 ML IV SCH (14:57)
--- NOTE | 2018-07-31 20:45 | PULMONOLOGY PROGRESS NOTE ---
DATE: 07/31/2018 SUBJECTIVE: The patient is off BiPAP, but does have more dyspnea today. He reports he did walk short distances. OBJECTIVE: The patient has been afebrile for the last 24 hours. Blood pressure 140/96, heart rate 86, respiratory rate 26, oxygen saturation 100%. HEENT: Pupils are equal and reactive. Oropharynx is clear. Neck is supple. Chest reveals diminished breath sounds in both lung bases. Cardiac exam: S1, S2. Abdomen is soft. Extremities reveal trace to 1+ peripheral edema. DIAGNOSTIC DATA: Chest x-ray reveals decreased pulmonary edema, with continued changes in the lung bases. LABORATORY DATA: White blood count 9.1, hemoglobin 8.3, platelet count 269,000. IMPRESSION: A 58-year-old with: 1. Acute hypoxemic and acute hypercapnic respiratory failure. 2. Bilateral pleural effusions. 3. [id number] renal insufficiency. 4. Alcohol abuse with deconditioning. 5. Protein-calorie malnutrition. PLAN: 1. Continue levofloxacin and hold nephrotoxic antibiotics if possible. 2. Continue antibiotics pending results of procalcitonin. 3. Anticipate rehab with clinical improvement. cc: MD Dylan Bess MD
[2018-07-31] MEDS: REMERON PO SCH (21:20)
[2018-07-31] MEDS: LEVAQUIN 250 MG/D5W 250 MG/50 ML IVPB IV SCH (21:22)
[2018-08-01] MEDS: CARAFATE LIQUID PO SCH ×4 (02:05→20:42)
[2018-08-01] MEDS: CALMOSEPTINE OINTMENT TOP PRN (02:05)
[2018-08-01] MEDS: DUONEB (A & A) INH SCH ×5 (03:10→21:30)
[2018-08-01 06:14] LABS: HEMATOCRIT 29.4 % (42.0-52.0); HEMOGLOBIN 9.1 g/dL (14.0-18.0); MCH 31.3 PG (27-31); MPV 12.2 FL (7.4-10.4); RBC 2.91 XMIL (4.7-6.1); WBC 9.5 X1000 (4.8-10.8)
[2018-08-01 06:24] LABS: ALB/GLOB RATIO 0.8; ALBUMIN 2.6 g/dL (3.5-5.0); CREATININE 2.1 mg/dL (0.7-1.2); POTASSIUM 5.9 mmol/L (3.5-5.1); TOTAL BILIRUBIN 0.28 mg/dL (0.20-1.00); TOTAL PROTEIN 5.7 g/dL (6.3-8.3)
[2018-08-01] MEDS ORDERED: KAYEXALATE PO ONE (06:39)
--- NOTE | 2018-08-01 06:59 | PROGRESS NOTE ---
DATE: 08/01/2018 SUBJECTIVE: Mr. Bullard is doing fair. The patient is still requiring BiPAP. No high-grade fever or chills. No nausea or vomiting. Oral intake is fair to poor. No diarrhea. OBJECTIVE: Vital Signs: Noted. Neck: Supple. No JVD. Lungs: Bilateral good air entry present. CVS: S1 and S2 heard. Abdomen: Soft, globular. Bowel sounds present. Extremities: No cyanosis, clubbing. No acute DVT. WIDE AREA NETWORK SYSTEMS ADMINISTRATOR: Alert, awake. Able to move all 4 limbs. PROBLEM LIST: 1. Significant gastritis and esophagitis. 2. Possible pneumonia. 3. Electrolyte abnormality. 4. Pleural effusion. 5. Acute kidney injury. 6. Generalized weakness. 7. Pancreatitis. 8. Anemia due to blood loss and chronic disease. Hemoglobin 9.1, hematocrit 29.4. PLAN: The patient received 1 unit of packed RBC yesterday. His potassium was 5.9, BUN 45, creatinine 2.1. Skeiner is following patient with us. We stopped nephrotoxic medications. We are monitoring patient closely. cc: MD Dylan Richard MD
--- NOTE | 2018-08-01 08:20 | NEPHROLOGY PROGRESS NOTE ---
DATE: 08/01/2018 SUBJECTIVE: He is on BiPAP currently but denies shortness of breath. No nausea, vomiting, or other new symptoms. OBJECTIVE: Vital Signs: Blood pressure 143/88, heart rate 75, respirations 20, afebrile. Intake 1.8 L. Output 375 mL. General: No acute distress. Skin: Warm and dry. Neck: Neck veins are not appreciated. Heart: Regular. Lungs: Equal breath sounds with scattered wheezes. Abdomen: Soft, nontender. Bowel sounds present. Extremities: 2+ edema. No clubbing or cyanosis. IMPRESSION: Acute kidney injury. BUN and creatinine are about the same. Urine output is low. Potassium is marginally high. I will dose with furosemide 100 mg twice daily and observe his response. We will also administer albumin 1. cc: MD Dylan Payan MD
[2018-08-01] MEDS: LOPRESSOR PO SCH ×2 (09:09→20:44)
[2018-08-01] MEDS: IMDUR PO SCH (09:09)
[2018-08-01] MEDS: FLOMAX PO SCH (09:09)
[2018-08-01] MEDS: SOLU-CORTEF IV SCH ×2 (09:09→20:42)
[2018-08-01] MEDS: PROTONIX IV SCH ×2 (09:12→20:42)
[2018-08-01] MEDS: LASIX IV SCH ×2 (09:12→20:41)
[2018-08-01] MEDS: CLINIMIX E 4.25%-5% SOLUTION 1,000 ML IV SCH (11:16)
[2018-08-01] MEDS: ALBUMIN 25% IV SCH (11:16)
[2018-08-01] MEDS: LEVAQUIN 250 MG/D5W 250 MG/50 ML IVPB IV SCH (20:42)
[2018-08-01] MEDS: SODIUM CHLORIDE 0.9% INJ SCH (20:44)
[2018-08-01] MEDS: REMERON PO SCH (20:44)
--- NOTE | 2018-08-01 21:05 | PULMONOLOGY PROGRESS NOTE ---
DATE: 08/01/2018 SUBJECTIVE: The patient is awake, alert and conversant. He has a dry cough. He reports he did ambulate a short distance within the room today. OBJECTIVE: Vital Signs: The patient has been afebrile for the last 24 hours. BP 135/72, heart rate 89, respiratory rate 18, oxygen saturation 98% on 4 L per nasal cannula. HEENT: Pupils are equal and reactive. Oropharynx appears clear. Neck: Supple. Chest: Reveals diminished breath sounds both lung bases. Cardiac: S1, S2. Abdomen: Soft and without hepatosplenomegaly. Extremities: Without edema. IMPRESSION: A 58-year-old with: 1. Acute hypoxemic and acute hypercapnic respiratory failure. 2. Bilateral pleural effusions. 3. Alcohol abuse with deconditioning. 4. Acute on chronic renal insufficiency. 5. Protein calorie malnutrition. RECOMMENDATIONS: 1. Continue bronchial hygiene. 2. Continue Levaquin unless he has evidence of fevers or increasing leukocytosis. 3. Diuretic management per Nephrology. 4. Chest x-ray tomorrow. 5. Anticipate a rehab stay or LTAC with clinical improvement. cc: MD Dylan Bess MD
[2018-08-02] MEDS: CARAFATE LIQUID PO SCH ×4 (01:24→21:02)
[2018-08-02] MEDS: DUONEB (A & A) INH SCH ×4 (03:12→22:35)
[2018-08-02] MEDS: CLINIMIX E 4.25%-5% SOLUTION 1,000 ML IV SCH (06:16)
[2018-08-02 06:53] LABS: HEMATOCRIT 32.6 % (42.0-52.0); MCH 30.9 PG (27-31); MCHC 30.7 g/dL (33-37); MCV 100.6 FL (81-99); MPV 11.8 FL (7.4-10.4); RBC 3.24 XMIL (4.7-6.1); RDW 16.3 % (11.5-14.5); WBC 8.61 X1000 (4.8-10.8)
[2018-08-02 07:25] LABS: ALB/GLOB RATIO 1.1; ALBUMIN 3.3 g/dL (3.5-5.0); CALCIUM 9.3 mg/dL (8.8-10.2); CREATININE 2.1 mg/dL (0.7-1.2); POTASSIUM 4.1 mmol/L (3.5-5.1); TOTAL BILIRUBIN 0.4 mg/dL (0.20-1.00); TOTAL PROTEIN 6.2 g/dL (6.3-8.3)
--- NOTE | 2018-08-02 07:33 | Diag Imaging Result Doc PS360 ---
CHEST-PORTABLE - 08/02/2018 INDICATION: abnormal exam COMPARISON: 07/31/2018 FINDINGS: Stable left central line. Stable extensive bilateral infiltrates. There our probably small pleural effusions. Heart size remains normal. IMPRESSION: No change from prior. Electronically signed by Pete Mcpherson 08/02/2018 7:30 AM
--- NOTE | 2018-08-02 08:09 | PROGRESS NOTE ---
DATE: 08/02/2018 SUBJECTIVE: Mr. Bullard is doing better. He is getting stronger. Oral intake is still fair to poor. No nausea or vomiting. Patient is still having some diarrhea. OBJECTIVE: Vital signs: Reviewed. Neck: Supple. No JVD. Lungs: Bilateral good air entry present. Decreased air entry both bases. CVS: S1 and S2 heard. Abdomen: Soft and nontender. Bowel sounds present. BALL POINTS INSPECTOR: Alert, awake, and able to move all 4 limbs. The patient's procalcitonin level was 0.26. ASSESSMENT AND PLAN: Clinically, the patient seems to be doing better. He is getting IV albumin for 3 days. It is supposed to be finished tomorrow. Patient's problem includes GI bleed, blood- loss anemia, status post cardiac arrest. Pneumonia. Pleural effusion. Pancreatitis. Deconditioning. Plan is to check appropriate labs. The plan is to discharge patient to rehab tomorrow. cc: MD Dylan Richard MD
[2018-08-02] MEDS: IMDUR PO SCH (10:12)
[2018-08-02] MEDS: FLOMAX PO SCH (10:13)
[2018-08-02] MEDS: SOLU-CORTEF IV SCH ×2 (10:13→21:01)
[2018-08-02] MEDS: LOPRESSOR PO SCH ×2 (10:13→21:02)
[2018-08-02] MEDS: SODIUM CHLORIDE 0.9% INJ SCH ×2 (10:13→21:01)
[2018-08-02] MEDS: PROTONIX IV SCH ×2 (10:13→21:01)
[2018-08-02] MEDS: ALBUMIN 25% IV SCH (10:24)
--- NOTE | 2018-08-02 14:54 | NEPHROLOGY PROGRESS NOTE ---
DATE: 08/02/2018 SUBJECTIVE: He is anticipating discharge today. No shortness of breath. Lying flat, not wearing his oxygen. OBJECTIVE: Vital Signs: Blood pressure 114/62, heart rate 22, respiration 96, afebrile. General: No acute distress. Skin: Warm and dry. HEENT: Conjunctivae are pink. Neck: Neck veins are questionable. Heart: Regular. Lungs: Have a few scattered crackles. Abdomen: Soft, nontender. Bowel sounds present. Extremities: 1+ edema. No clubbing or cyanosis. IMPRESSION AND PLAN: Acute kidney injury. His labs have been roughly stable over the last 5 days. Good urine output with Lasix. I will repeat this today as well as dose with albumin. If he is discharged, then we will follow him in the office in approximately 2 weeks. cc: MD Dylan Payan MD
[2018-08-02] MEDS: LASIX IV SCH (16:24)
[2018-08-02] MEDS: LEVAQUIN 250 MG/D5W 250 MG/50 ML IVPB IV SCH (21:01)
[2018-08-02] MEDS: REMERON PO SCH (21:02)
--- NOTE | 2018-08-02 22:17 | PULMONOLOGY PROGRESS NOTE ---
DATE: 08/02/2018 SUBJECTIVE: The patient is awake and alert. He reports he ambulated briefly in the hallway with significant assistance. He has a poor appetite. OBJECTIVE: Vital Signs: The patient has been afebrile for the last 24 hours. Blood pressure 114/62, heart rate 96, respiratory rate 22, oxygen saturation 97%. HEENT: Pupils are equal and reactive. Oropharynx is clear. Neck: Supple. Chest: Reveals decreased breath sounds in the lung bases. Cardiac exam: Regular rate. Normal S1, normal S2. Abdomen: Soft. Extremities: Reveal trace edema. LABORATORIES: Chest x-ray reveals bilateral infiltrates and effusions which have not changed. IMPRESSION: A 58-year-old with: 1. Acute hypoxemic and acute hypercapnic respiratory failure. 2. Bilateral pneumonia and pleural effusions, which continues to improve. 3. Alcohol abuse with deconditioning. 4. Protein calorie malnutrition. 5. Acute on chronic renal insufficiency. DISCUSSION: A 58-year-old with problems outlined above. He continues to become stronger. He has had marked good improvement over the last 7 to 10 days. RECOMMENDATIONS: 1. Continue bronchial hygiene. 2. Continue antibiotics today. I believe at the time of discharge, these can be discontinued. 3. Diuretic management per Nephrology. 4. Anticipate discharge to rehab tomorrow. The patient can be seen by me as an outpatient after he is discharged from rehab if he needs pulmonary follow-up. cc: MD Dylan Bess MD
[2018-08-03] MEDS: LASIX IV SCH ×2 (02:56→13:50)
[2018-08-03] MEDS: CLINIMIX E 4.25%-5% SOLUTION 1,000 ML IV SCH (02:56)
[2018-08-03] MEDS: CARAFATE LIQUID PO SCH ×3 (02:56→13:00)
[2018-08-03] MEDS: DUONEB (A & A) INH SCH ×2 (03:48→11:36)
[2018-08-03 06:33] LABS: HEMATOCRIT 30.2 % (42.0-52.0); HEMOGLOBIN 9.5 g/dL (14.0-18.0); MCH 31.3 PG (27-31); MCHC 31.5 g/dL (33-37); MCV 99.3 FL (81-99); RBC 3.04 XMIL (4.7-6.1); RDW 15.6 % (11.5-14.5); WBC 9.11 X1000 (4.8-10.8)
[2018-08-03 07:18] LABS: ALB/GLOB RATIO 1.4; ALBUMIN 3.6 g/dL (3.5-5.0); CALCIUM 9.2 mg/dL (8.8-10.2); CREATININE 2.1 mg/dL (0.7-1.2); POTASSIUM 3.1 mmol/L (3.5-5.1); TOTAL BILIRUBIN 0.37 mg/dL (0.20-1.00); TOTAL PROTEIN 6.1 g/dL (6.3-8.3)
[2018-08-03] MEDS: SOLU-CORTEF IV SCH (08:15)
[2018-08-03] MEDS: PROTONIX IV SCH (08:17)
[2018-08-03] MEDS: SODIUM CHLORIDE 0.9% INJ SCH (08:17)
[2018-08-03] MEDS: IMDUR PO SCH (08:18)
[2018-08-03] MEDS: LOPRESSOR PO SCH (08:18)
[2018-08-03] MEDS: FLOMAX PO SCH (08:18)
[2018-08-03] MEDS: ALBUMIN 25% IV SCH (08:27)
--- NOTE | 2018-08-03 09:37 | DISCHARGE SUMMARY ---
ADMISSION DATE: 07/08/2018 DISCHARGE DATE: 08/03/2018 FINAL DISCHARGE DIAGNOSES: 1. Acute pancreatitis. 2. Upper gastrointestinal bleed status post cardiac arrest. 3. Acute hypoxemic respiratory and hypercapnic respiratory failure. 4. Acute kidney injury. 5. Pneumonia. Status post thoracentesis for pleural effusion. 6. Coronary artery disease. 7. Hypertension. 8. Obstructive uropathy. 9. Alcohol abuse. 10. Severe deconditioning. 11. Protein calorie malnutrition. 12. Hypokalemia. 13. Hypomagnesemia. 14. History suggestive of systemic lupus erythematosus. HOSPITAL COURSE: Mr. Bullard is a 58-year-old, white gentleman, admitted with abdominal pain, nausea, vomiting. The patient was acutely ill. Patient was drinking a large amount of alcohol, a pint of whiskey daily. He did not drink anything for the last 2 days; he was trying to quit. The patient had abdominal pain, nausea, vomiting, some hematemesis and also bright red blood in the stool on the day of admission. Initially, the patient was admitted to [facility]. The patient had cardiopulmonary arrest on July 08. He was resuscitated, transferred to ICU. The patient stayed on mechanical ventilation. His clinical condition remained critical for many days. Dr. Davila managed patient very well. His clinical condition gradually improved. GI consult obtained with Dr. Tejeda and Dr. Cardenas. So, the patient was transferred to [facility]. Hospital course complicated by electrolyte abnormality, pneumonia, deconditioning, respiratory failure requiring BiPAP. Patient's oral intake was poor. We continued TPN. Patient is ambulating some with physical therapy. He is drinking Ensure and trying to eat some. The patient received maximum benefit of hospitalization. The patient had significant esophagitis and gastritis, which was treated appropriately with Protonix. Overall, patient received maximum benefit of hospitalization. Lately, patient developed acute kidney injury which is treated with adequate hydration and diuresis. I did discuss with Dr. Barnard about discharge planning. He was in agreement; so was Dr. Davila. Recommendation from Dr. Barnard is to give 40 mg of Lasix. He is going to see him back in 10 to 14 days. The patient needs physical therapy, fall precaution, nutrition, monitoring of his labs, monitoring of his respiration, BiPAP at night and during daytime p.r.n. CT scan of the abdomen and pelvis done on July 09 revealed acute pancreatitis, severe hepatic steatosis, small left pleural effusion. The patient had CT scan of the head done, which revealed chronic encephalomalacia and atrophic changes, bilateral sphenoidal and right ethmoidal and maxillary sinusitis. This was done on July 11. Patient had upper GI endoscopy done on July 12, which revealed severe esophagitis and distal esophageal grade 4 evidence of bile in the stomach, evidence of ulcer in the body of stomach likely from NG tube trauma. The patient had very slow recovery. LAB DATA: Blood work done today: Hemoglobin 9.5, hematocrit 30.2, platelet count 273, WBC count 9.11. Electrolyte results are pending. Electrolytes done yesterday: BUN 48, creatinine 2.1, potassium 4.1. X-RAY DATA: Chest x-ray done on August 01 did reveal stable extensive bilateral infiltrates; it could be due to pulmonary edema versus pneumonia, most likely edema. The patient was given high dose of Lasix. DISCHARGE CONDITION: Overall discharge condition satisfactory. PLAN: Overall discharge plan discussed with the patient. Encouraged patient not to restart drinking or smoking. cc: MD Dylan Richard MD
--- NOTE | 2018-08-03 10:02 | NEPHROLOGY PROGRESS NOTE ---
DATE: 08/03/2018 SUBJECTIVE: He is lying flat in bed. No shortness of breath, nausea, vomiting. He anticipates discharge to rehab today. OBJECTIVE: Vital Signs: Blood pressure 130/70, heart rate 80, respirations 20, afebrile. Intake 2L, output 5.1 L. General: No acute distress. Skin: Warm and dry. Neck: Neck veins are not appreciated. Heart: Regular. Lungs: Equal. No crackles. Abdomen: Soft, nontender. Bowel sounds present. Extremities: With trace to 1+ edema. No clubbing or cyanosis. IMPRESSION: 1. Acute kidney injury. Labs are still pending from this morning. Excellent urine output. Okay for discharge. We will follow him in 2 weeks. 2. Volume overload. I have treated him with IV Lasix for the last 2 days with a nice response. He can be discharged on 40 mg of Lasix once daily. cc: MD Dylan Payan MD
[2018-08-03] MEDS ORDERED: KLOR-CON PO ONE (12:03)
[2018-08-03 12:33] VITALS: BP 132/75
--- NOTE | 2018-08-03 13:42 | EKG Report ---
Test Performed on : 08/03/2018 12:33:34 PM Test Reason : Chest Pain Blood Pressure : / mmHG Vent. Rate : 105 BPM Atrial Rate : 105 BPM P-R Int : 114 ms QRS Dur : 114 ms QT Int : 392 ms P-R-T Axes : 055 -34 005 degrees QTc Int : 518 ms Sinus tachycardia. with premature supraventricular complexes. and with occasional premature ventricul ar complexes. Left axis deviation Right bundle branch block Anteroseptal infarct (cited on or before 07-JAN-2009) Abnormal ECG When compared with ECG of 10-JUL-2018 00:08, premature ventricular complexes. are now present premature supraventricular complexes. are now present Questionable change in initial forces of Septal leads Nonspecific T wave abnormality now evident in Inferior leads Confirmed by Yamil BAINS, Cornell ([id number]) on 08/06/2018 9:12:07 AM
== END 2018-08-03 15:38 | DRG 377 ==
LOC: SUPCPDRO → ED 09:21 → 3S 13:02 → EDIPHOLD 07-09 22:18 → ICU 07-10 00:23 → 3S 07-17 12:06 → 4N 08-01 17:22
PROVIDERS: ADMIT Family Medicine; ATTEND Internal Medicine
CPT/HCPCS: 31500; 32421; 32555; 36430; 70450; 71010; 71020; 71045; 71046; 71250; 74176; 76770; 80048; 80053; 80069; 80074; 80202; 80307; 80320; 81001; 82055; 82140; 82150; 82270; 82533; 82550; 82553; 82570; 82607; 82784; 82805; 82945; 83605; 83615; 83690; 83735; 83880; 83986; 84100; 84132; 84134; 84145; 84155; 84156; 84157; 84165; 84166; 84300; 84484; 84540; 85014; 85018; 85025; 85027; 85610; 85730; 86334; 86850; 86900; 86901; 86920; 87040; 87070; 87102; 87116; 87147; 87205; 87206; 87324; 88112; 89050; 89051; 89055; 93005; 93010; 93306; 94003; 94640; 94660; 94761; 94799; 96361; 96374; 96375; 97110; 97116; 97162; 97530; 99285; A9270; C8929; C9113; G0480; G6040; J1720; J1940; J1956; J2060; J2250; J2270; J2405; J2543; J3370; J3411; J3475; J3480; J7030; J7040; J7050; J7060; J7070; J7120; P9016; P9047; Q9957; S0164

== ENCOUNTER 2019-05-06 12:16 | Inpatient (IN) ==
--- NOTE | 2019-05-06 14:03 | EKG Report ---
Test Performed on : 05/06/2019 12:36:38 PM Test Reason : CP Blood Pressure : / mmHG Vent. Rate : 070 BPM Atrial Rate : 070 BPM P-R Int : 130 ms QRS Dur : 116 ms QT Int : 418 ms P-R-T Axes : 049 -36 073 degrees QTc Int : 451 ms Normal sinus rhythm. 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
--- NOTE | 2019-05-06 14:38 | Diag Imaging Result Doc PS360 ---
EXAM: CHEST-2 VIEWS 05/06/2019 HISTORY: chest pain TECHNIQUE: PA and lateral chest COMMENT: Compared to 08/02/2018 the pulmonary edema which was present previously has largely resolved. There is a granuloma in the right upper lobe which was present previously. There are old rib fractures. IMPRESSION: No acute disease. Electronically signed by Yimi Khan 05/06/2019 2:35 PM
--- NOTE | 2019-05-06 14:45 | PROVIDER DOCUMENTATION ---
This chart was entered by Pilar Bateman Scribe, acting as scribe for Odette Ambriz MD. HPI-Chest Pain - General Chief Complaint: Chest Pain Stated Complaint: chest pain Time Seen by Provider: 05/06/19 13:11 Source: patient Allergies/Adverse Reactions: Patient Allergies Allergy/AdvReac Type Severity Reaction Status Date / Time No Known Allergies Allergy Verified 05/06/19 15:47 Home Medications: Home Medication List Medication Instructions Recorded Confirmed Last Taken Type Metoprolol [Lopressor] 50 mg PO BID 09/02/13 05/06/19 05/06/19 07:00 History Isosorbide Mononitrate E.r. [Imdur] 30 mg PO DAILY 05/28/14 05/06/19 05/06/19 07:00 History Magnesium Oxide [Magox 400] 400 mg PO BID #60 tab 08/03/18 05/06/19 05/06/19 07:00 Rx Clopidogrel Bisulfate [Clopidogrel] 75 mg PO DAILY 05/06/19 05/06/19 05/06/19 07:00 History Lisinopril 40 mg PO DAILY 05/06/19 05/06/19 05/06/19 07:00 History Simvastatin 20 mg PO DAILY 05/06/19 05/06/19 05/06/19 07:00 History - History of Present Illness-CP Nature of Presenting Problem: 59yom presents to ED cc intermittent, sharp, substernal chest pain that doesn't radiate anywhere, heart racing, nausea, SOB for last 2 days and diarrhea for 1 m onth. Pt reports he has had 5 [place] w/1 stent placement, cardiac arrest in 06/26, Afib and HTN. Pt is on Plavix daily. He states he has not had a cardiac cath in 20 years. Has not seen a cradiologist in many years as well. Used to be a daily drinker of whiskey but cut back to beer only every few days. last drink was 2 days ago. Location: reports: substernal Chest Pain Radiation: reports: no radiation Quality of Pain: reports: sharp Severity in ED: mild, moderate Onset/Duration: 2 days ago Timing: intermittent Context/Activities at Onset: reports: light activity Modifying Factors: improves with: nothing Associated Symptoms: reports: fatigue, nausea, shortness of breath Nitro Today/Relief: no nitro taken today Aspirin Treatment Today: no aspirin today Prior Chest Pain/Cardiac Workup: reports: cardiac cath, heart attack, stress test Similar Symptoms Previously?: Yes Recently Seen Here or By Another Healthcare Provider: No Review of Systems - Adult - REVIEW OF SYSTEMS - ADULT Constitutional: reports: see HPI, fatique. denies: chills, fever Eyes: reports: no symptoms reported Ears, Nose, Mouth & Throat: reports: no symptoms reported Cardiovascular: reports: see HPI, chest pain, palpitations Respiratory: reports: see HPI, shortness of breath. denies: wheezing Gastrointestinal: reports: see HPI, diarrhea, nausea. denies: abdominal pain Genitourinary: reports: no symptoms reported Musculoskeletal: reports: no symptoms reported Integumentary: reports: no symptoms reported Neurological: reports: no symptoms reported Psychiatric: reports: no symptoms reported Endocrine: reports: no symptoms reported Hematologic/Lymphatic: reports: no symptoms reported Allergic/Immunologic: reports: no symptoms reported All Other Systems: Reviewed and Negative Past History - Adult - PAST MEDICAL HISTORY-ADULT Review of Records: reports: Nursing Assessment Review, Medications Reviewed, Social history reviewed & non-contributory. Major Childhood Illnesses: reports: denies history Cardiovascular: reports: A-Fib, CAD, HTN, [place] (x 4) Respiratory: reports: denies history Gastrointestinal: reports: denies history Obstetrical/Gynecological: reports: denies history Genitourinary: reports: denies history Musculoskeletal: reports: arthritis Neurological: reports: denies history Endocrine/Immune: reports: lupus Other Conditions: reports: denies history - PRIOR SURGERIES/PROCEDURES Surgical/Procedure History: reports: cardiac stent, orthopedic (extremity) - PRIOR HOSPITALIZATIONS Prior Hospitalizations: reports: for similar symptoms - IMMUNIZATION STATUS Childhood Immunizations: See Nurse Assessment Flu Vaccine: See Nurse Assessment - FAMILY HISTORY Family History: reviewed, not pertinent - SOCIAL HISTORY Smoking: cigarettes, less than 1 pack/day Provider spent 3-5 mins advising pt. on dangers of tobacco.: Discussed manners to quit use, and f/u contacts for add'l counseling. Physical Exam-General - PHYSICAL EXAM-ADULT Initial Vital Signs Reviewed: Yes - CONSTITUTIONAL General Appearance: appears well, alert, no apparent distress. negative: anxious, combative - EYES Eyes: PERRL/EOMI. negative: photophobia - HEAD, EARS, NOSE, MOUTH & THROAT HENMT: normocephalic/atraumatic, moist mucous membranes. negative: angioedema - NECK Neck: supple, normal inspection - RESPIRATORY Respiratory: chest non-tender, no respiratory distress, no accessory muscle use, decreased breath sounds. negative: stridor, wheezing - CARDIOVASCULAR Cardiovascular: normal peripheral pulses, regular rate, rhythm, no edema, no murmur. negative: bradycardia, tachycardia - GASTROINTESTINAL (ABDOMEN) Abdominal Exam: normal bowel sounds, non tender, soft - MUSCULOSKELETAL Extremity: normal inspection. negative: deformity - SKIN Integumentary: normal color, normal turgor, warm/dry. negative: diaphoresis, jaundice, rash - NEUROLOGIC Neurologic: grossly normal - PSYCHIATRIC Psych/Mental Status: normal mood/affect, oriented x 3. negative: anxious, disheveled - HEART Score HEART Score: History: Highly Suspicious HEART Score: ECG: Significant ST-Deviation HEART Score: Age: 45-65 Years HEART Score: Risk Factors for Atherosclerotic Disease: > or = 3 Risk Factors or History of Atherosclerotic Disease HEART Score: Troponin: 1-3x Normal Limit Total HEART Score:: 8 Progress - PLAN OF CARE/RESULTS Progress/Plan/Lab Results: Vital Signs - 8 hr 05/06/19 12:28 05/06/19 14:21 05/06/19 15:02 Temperature 98.5 F 98.6 F Pulse Rate 72 63 63 Respiratory Rate 17 15 14 Blood Pressure 98/60 98/66 109/68 O2 Sat by Pulse Oximetry 95 98 98 05/06/19 16:03 05/06/19 17:03 05/06/19 18:46 Temperature Pulse Rate 65 59 L 80 Respiratory Rate 19 19 19 Blood Pressure 96/62 92/61 112/74 O2 Sat by Pulse Oximetry 98 98 97 Laboratory Results - last 24 hr 05/06/19 05/06/19 05/06/19 13:26 13:26 13:26 WBC 11.38 H RBC 4.50 L Hgb 13.9 L Hct 43.7 MCV 97.1 MCH 30.9 MCHC 31.8 L RDW Std Deviation 12.6 Plt Count 231 MPV 11.9 H Immature Gran % (Auto) 0.5 Neut % (Auto) 69.0 Lymph % (Auto) 18.7 L [place] % (Auto) 8.8 Eos % (Auto) 1.6 Baso % (Auto) 1.4 H Immature Gran # (Auto) 0.06 H Neut # (Auto) 7.85 H Lymph # (Auto) 2.13 [place] # (Auto) 1.00 H Eos # (Auto) 0.18 Baso # (Auto) 0.16 Sodium 133 L Potassium 5.4 H Chloride 93 L Carbon Dioxide 24 L Anion Gap 16 BUN 18 Creatinine 1.1 Estimated GFR/1.73 m2 > 60 BUN/Creatinine Ratio 16 Glucose 102 Calculated Osmolality 268 Calcium 9.8 Total Bilirubin 0.38 AST 43 H ALT 28 Alkaline Phosphatase 88 Troponin T High Sens Total Protein 7.9 Albumin 3.9 Globulin 4.0 Albumin/Globulin Ratio 1.0 Lipase 100 H Plasma/Serum Ethyl Alc 05/06/19 13:26 WBC RBC Hgb Hct MCV MCH MCHC RDW Std Deviation Plt Count MPV Immature Gran % (Auto) Neut % (Auto) Lymph % (Auto) [place] % (Auto) Eos % (Auto) Baso % (Auto) Immature Gran # (Auto) Neut # (Auto) Lymph # (Auto) [place] # (Auto) Eos # (Auto) Baso # (Auto) Sodium Potassium Chloride Carbon Dioxide Anion Gap BUN Creatinine Estimated GFR/1.73 m2 BUN/Creatinine Ratio Glucose Calculated Osmolality Calcium Total Bilirubin AST ALT Alkaline Phosphatase Troponin T High Sens 48 H Total Protein Albumin Globulin Albumin/Globulin Ratio Lipase Plasma/Serum Ethyl Alc Orders Category Date Time Status Regular Diet Diet 05/06/19 17:14 Active CHEST-2 VIEWS [RAD] Stat Exams 05/06/19 14:19 Completed ALCOHOL BLOOD Stat Lab 05/06/19 13:26 Completed CBC WITH ELECTRONIC DIFF [HEME] Stat Lab 05/06/19 13:26 Completed COMPREHENSIVE METABOLIC PANEL [CHEM] Stat Lab 05/06/19 13:26 Completed LIPASE [CHEM] Stat Lab 05/06/19 13:26 Completed TROPONIN T HIGH SENSITIVITY Stat Lab 05/06/19 13:26 Completed TROPONIN T HIGH SENSITIVITY Stat Lab 05/06/19 17:50 Uncollected URINALYSIS W/POSS RFLX CULT [URINALYSIS] Stat Lab 05/06/19 14:52 Ordered URINE DRUG SCREEN Stat Lab 05/06/19 14:52 Ordered EKG [EKG] Stat Ther 05/06/19 12:36 Draft Patient with significant heart history and concerning story. Would benefit from ACS admission. Spoke to Dr Aguilar button tufter for hospitalist who accepted patient for admission. Further orders to be placed by their team. Result Diagrams: 05/06/19 13:26 05/06/19 13:26 - EKG 1 Time of EKG reading by physician:: 14:21 EKG Read and Signed by:: Odette Ambriz EKG Interpretation (*Must complete 3 of following elements*): Abnormal (anteroseptal infarct, age undetermined) Rate: 70 Rhythm: NSR Hooper: left QRS: RBB ST Wave: non-specific ST changes - XRAY 1 XRAY: Bilateral XRAY Study: Chest Impression: See EMR Report ( IMPRESSION: No acute disease. Electronically signed by Yimi Khan 05/06/2019 2:35 PM) - CONSULTS/PCP/HOSPITALIST Notification #1 *Consult/PCP/Hospitalist*: Dr. Lobo Time Discussed: 18:00 Consult Disposition: Admit Departure - Departure Date of Disposition Decision: 05/06/19 Time of Disposition Decision: 17:48 DIAGNOSIS: Chest pain, Elevated troponin Disposition: ADMITTED INPATIENT 09 Certified Medical Emergency: Emergent Condition: Stable Additional Instructions: ED Follow Up Instructions: You have been treated by a care provider in the Emergency Department. These instructions are being provided to you so you can have an understanding of how to care for yourself upon discharge. Upon discharge from the Emergency Department, you are responsible for making arrangements for follow-up care by a physician of your choice. Take all prescribed medications as directed. Return to the Emergency Department immediately for any new or worsening symptoms. You may call the Physician Referral phone number at [phone] to obtain a list of Physicians who are taking new patients. Referrals and Follow-Ups: Surjit Espino MD [Primary Care Provider] - Discharge Education: Steps to Quit Smoking, [id number] - Critical Care Note This patient required my direct & personal management of CC.: No Attestation - Physician/ DANNY Attestation Patient care was provided by Advanced Practice Provider:: No The physician spent face to face time with patient:: Yes Advanced Practice Provider documentation review:: Supervising physician onsite and consulted in the evaluation and care of this patient. The physician did have a face to face encounter with the patient. This chart was documented by the indicated scribe, (Pilar Bateman Scribe) and accurately reflects the services I performed and decisions made by me, Odette Ambriz MD, as attested by the provider's signature.
[2019-05-06 14:49] LABS: BASO# 0.16 X1000 (0.0-0.2); BASO% 1.4 % (0.0-0.8); EOS# 0.18 X1000 (0.0-0.7); EOS% 1.6 % (0.0-10.0); HEMATOCRIT 43.7 % (42.0-52.0); HEMOGLOBIN 13.9 g/dL (14.0-18.0); IMM GRAN# 0.06 X1000 (0.0-0.04); IMM GRAN% 0.5 % (0.0-0.5); LYMPH# 2.13 X1000 (1.2-3.4); LYMPH% 18.7 % (20.5-51.1); MCH 30.9 PG (27-31); MCHC 31.8 g/dL (33-37); MCV 97.1 FL (81-99); MONO% 8.8 % (1.7-9.3); MPV 11.9 FL (7.4-10.4); NEUT# 7.85 X1000 (1.4-6.5); PLT 231 X1000 (130-400); RDW 12.6 % (11.5-14.5); WBC 11.38 X1000 (4.8-10.8)
[2019-05-06 15:36] LABS: AGAP 16; ALBUMIN 3.9 g/dL (3.5-5.0); ALKALINE PHOSPHATASE 88 U/L (32-122); BUN 18 mg/dL (8-22); CALCIUM 9.8 mg/dL (8.8-10.2); CHLORIDE 93 mmol/L (98-107); COSMO 268; CREATININE 1.1 mg/dL (0.7-1.2); ESTIMATED GFR > 60; GLUCOSE 102 mg/dL (70-104); GOT 43 U/L (10-34); GPT 28 U/L (10-44); LIPASE 100 U/L (13-60); POTASSIUM 5.4 mmol/L (3.5-5.1); SODIUM 133 mmol/L (136-145); TCO2 24 mmol/L (25-35); TOTAL BILIRUBIN 0.38 mg/dL (0.20-1.00); TOTAL PROTEIN 7.9 g/dL (6.3-8.3)
[2019-05-06] MEDS ORDERED: LOVENOX 1 MG/KG SUBQ ONE (18:48)
[2019-05-06] MEDS ORDERED: NS 1,000 ML IV ONE (18:48)
[2019-05-06] MEDS ORDERED: LOVENOX SUBQ ONE (19:45)
--- NOTE | 2019-05-06 21:02 | HISTORY AND PHYSICAL ---
HISTORY OF PRESENT ILLNESS: This is a 59-year-old male with history of CAD. He says he was admitted a couple months ago, but he has not been admitted since June 2018. So, I am not entirely sure if he was admitted here. His last admission was from July and he says he was admitted for cardiac arrest, which it looks like he was admitted but it was last year, almost a year ago. The patient has developed chest pain today. It is severe, substernal chest pain. It does not radiate anywhere. Heart racing, nausea, dyspnea, diarrhea for 1 month. He has had 5 heart attacks and status post PCI. Says it was about, he said a couple months ago, but again it was not a couple months ago. It was almost a year ago. He does take Plavix, but he really has not been followed up. He does not see a setter helper. He sees Dr. Rogel. He has seen Dr. Espino, but Dr. Espino is not his doctor. Dr. Rogel is and Dr. Rogel just continues his medications. He does report daily whiskey, but he has not been drinking anything like that recently. I am wondering, if he is having some memory issues. PAST MEDICAL HISTORY: 1. Reportedly lupus, which is limited to the skin alone. 2. CAD. 3. Hypertension. 4. Alcohol abuse. 5. History of pancreatitis, which is likely related to his alcohol abuse. PAST SURGICAL HISTORY: He has had a TKA. FAMILY HISTORY: Mother had CAD in her 70s. SOCIAL HISTORY: Again, daily whiskey, but now he says he drinks about 2 beers a day. That may have been as recent as a couple days ago. He has at least a 20 pack year history of smoking. ALLERGIES: Reports no known drug allergies. MEDICATIONS: He takes Plavix 75 daily, Imdur 30 daily, lisinopril 40 daily, Lopressor 50 b.i.d., simvastatin 20 daily, magnesium oxide 400 b.i.d. REVIEW OF SYSTEMS: Otherwise negative times a 10 point review of systems. PHYSICAL EXAMINATION: VITAL SIGNS: Blood pressure is 112/74, heart rate of 80, respiratory rate of 19, temperature was 98.6 degrees. GENERAL: A well-developed male in no acute distress. HEAD EXAM: Was normocephalic, atraumatic. EYE EXAM: Pupils equal, round, reactive to light. Extraocular movements were intact. EAR, NOSE AND THROAT EXAM: He had moist mucous membranes. NECK EXAM: Was supple. CARDIOVASCULAR: Regular rate and rhythm. No murmurs, gallops, or rubs. PULMONARY EXAM: Bilateral breath sounds. Clear to auscultation. GI: Was soft, nontender, nondistended. Bowel sounds were positive. NEURO EXAM: Was nonfocal. MUSCULOSKELETAL EXAM: Strength 4 to 5 in all 4 extremities. LABORATORY DATA: White count is 11, hemoglobin and hematocrit 13 and 43, platelets 231,000. Potassium is 5.4. Sodium 133. AST is 43. Troponin was 48. Lipase was a little bit up at 100. ASSESSMENT: This is a 59-year-old male with history of coronary artery disease presenting with chest pain. With that being said, the pain is very atypical. He has a history of alcoholic steatohepatitis and pancreatitis. He may have a little bit of that now. He is complaining of a lot of diarrhea, which may be related to chronic pancreatitis. In any case, problem list: 1. Chest pain. He does have coronary artery disease. We will rule out with serial enzymes. Get an echo, cardiac stress test. His electrocardiogram shows right bundle, so it is non diagnostic for the most part and his pain is pretty atypical and could be gastrointestinal related. 2. History of alcohol abuse, possible chronic pancreatitis. We will check stool studies and monitor. 3. Alcohol abuse. We will monitor for withdrawal, but he does not clearly have any evidence of withdrawal at this point. DISPOSITION: Pending his clinical status. cc: MD Chad Blum MD
[2019-05-06] MEDS ORDERED: TYLENOL PO PRN (21:20)
[2019-05-06] MEDS ORDERED: ZOFRAN IV PRN (21:20)
[2019-05-06] MEDS: PLAVIX PO SCH (23:35)
[2019-05-06] MEDS: MAG-OX PO SCH (23:35)
[2019-05-06] MEDS: LOPRESSOR PO SCH (23:47)
[2019-05-07 05:49] LABS: URINE SOURCE CLEAN CATCH
[2019-05-07 06:09] LABS: BILIRUBIN URINE NEGATIVE (NEGATIVE); BLOOD URINE NEGATIVE (NEGATIVE); COLOR YELLOW; GLUCOSE URINE NEGATIVE (NEGATIVE); KETONE URINE NEGATIVE (NEGATIVE); LEUKOCYTES URINE NEGATIVE (NEGATIVE); NITRITE URINE NEGATIVE (NEGATIVE); PROTEIN URINE NEGATIVE (NEGATIVE); TURBIDITY URINE CLEAR (CLEAR); UROBILINOGEN URINE NORMAL (NORMAL)
[2019-05-07 06:11] LABS: UR EPITHELIAL CELLS <10 /HPF (<10); URINE BACTERIA NEGATIVE /HPF; URINE RBC <10 /HPF (<10); URINE WBC <10 /HPF (<10)
[2019-05-07 06:12] LABS: UR AMPHETAMINES QUAL NONE DETECTED (NONE DETECT); UR BARBITUATES QUAL NONE DETECTED (NONE DETECT); UR BENZODIAZEPIN QUAL NONE DETECTED (NONE DETECT); UR CANNABINOIDS QUAL PRESUMPTIVE POSITIVE (NONE DETECT); UR COCAINE QUAL NONE DETECTED (NONE DETECT); UR METHADONE QUAL NONE DETECTED (NONE DETECT); UR OPIATES QUAL NONE DETECTED (NONE DETECT); UR OXYCODONE QUAL NONE DETECTED (NONE DETECT); UR PCP QUAL NONE DETECTED (NONE DETECT)
[2019-05-07 06:20] LABS: URINE CASTS NONE SEEN; URINE CRYSTALS NONE SEEN; URINE SMALL ROUND CELLS NONE SEEN; URINE YEAST NONE SEEN
[2019-05-07 07:55] LABS: BASO# 0.06 X1000 (0.0-0.2); BASO% 0.9 % (0.0-0.8); EOS# 0.17 X1000 (0.0-0.7); EOS% 2.5 % (0.0-10.0); HEMATOCRIT 40.1 % (42.0-52.0); HEMOGLOBIN 13.1 g/dL (14.0-18.0); LYMPH# 2.08 X1000 (1.2-3.4); LYMPH% 30.5 % (20.5-51.1); MCH 32.1 PG (27-31); MCHC 32.7 g/dL (33-37); MCV 98.3 FL (81-99); MONO# 0.87 X1000 (0.11-0.59); MONO% 12.8 % (1.7-9.3); MPV 11.3 FL (7.4-10.4); NEUT# 3.63 X1000 (1.4-6.5); NEUT% 53.3 % (42.2-75.2); PLT 170 X1000 (130-400); RBC 4.08 XMIL (4.7-6.1); RDW 12.6 % (11.5-14.5); WBC 6.81 X1000 (4.8-10.8)
--- NOTE | 2019-05-07 08:05 | Diag Imaging Result Doc PS360 ---
US ABDOMEN-COMPLETE - 05/07/2019 INDICATION: abdominal pain COMPARISON: 06/29/2018 FINDINGS: The liver, gallbladder, spleen, and both kidneys are normal. The pancreas is obscured by bowel gas. Common bile duct measures 4 mm. Aorta, IVC, and main portal vein are patent. Spleen size is 9.5 x 8.6 x 4.7 cm. IMPRESSION: Negative exam. Electronically signed by Pete Mcpherson 05/07/2019 8:02 AM
[2019-05-07] MEDS: MAG-OX PO SCH ×2 (08:21→21:04)
[2019-05-07] MEDS: IMDUR PO SCH (08:21)
[2019-05-07 08:39] LABS: AGAP 12; ALB/GLOB RATIO 1.1; ALBUMIN 3.5 g/dL (3.5-5.0); ALKALINE PHOSPHATASE 74 U/L (32-122); AMYLASE 68 U/L (20-200); BUN 15 mg/dL (8-22); CALCIUM 8.8 mg/dL (8.8-10.2); CHLORIDE 102 mmol/L (98-107); COSMO 275; CREATININE 0.9 mg/dL (0.7-1.2); ESTIMATED GFR > 60; GLUCOSE 100 mg/dL (70-104); GOT 22 U/L (10-34); GPT 19 U/L (10-44); LIPASE 137 U/L (13-60); POTASSIUM 4.3 mmol/L (3.5-5.1); SODIUM 137 mmol/L (136-145); TCO2 23 mmol/L (25-35); TOTAL BILIRUBIN 0.42 mg/dL (0.20-1.00); TOTAL PROTEIN 6.6 g/dL (6.3-8.3)
[2019-05-07] MEDS ORDERED: ZOCOR PO SCH (09:00)
--- NOTE | 2019-05-07 09:51 | EKG Report ---
Test Performed on : 05/07/2019 09:38:28 AM Test Reason : cp Blood Pressure : / mmHG Vent. Rate : 073 BPM Atrial Rate : 073 BPM P-R Int : 128 ms QRS Dur : 120 ms QT Int : 418 ms P-R-T Axes : 074 -10 083 degrees QTc Int : 460 ms Normal sinus rhythm. Right bundle branch block Anteroseptal infarct (cited on or before 07-JAN-2009) Abnormal ECG When compared with ECG of 06-MAY-2019 12:36, (Unconfirmed) No significant change was found Confirmed by Pete BAINS, Mani Barillas ([id number]) on 05/09/2019 7:29:02 AM
--- NOTE | 2019-05-07 12:34 | CARDIOLOGY CONSULTATION ---
DATE: 05/07/2019 CHIEF COMPLAINT: Chest pain; heart racing. HISTORY OF PRESENT ILLNESS: Mr. Bullard is a 59-year-old white male with a history of coronary disease. He presented for evaluation of chest pain that has been ongoing for roughly a week. He has had episodic chest pain that lasts for around 30 minutes in duration and feels like a heaviness in the left lower chest. There is no exertional component associated with this. He reports no other associated symptoms. Episodes can happen at rest. There is no pattern to these episodes. He is not compliant with followup with his doctor of optometry and was last seen in [address] Muniz and was supposed to follow up in 1 year but had not been back. PAST MEDICAL HISTORY: 1. Significant for coronary disease with previous myocardial infarction. His last cardiac catheterization was in 2014. This demonstrated a normal left main. The LAD had a stent in the proximal portion with 20% in-stent stenosis. Otherwise it was angiographically normal. The circumflex and right coronary arteries were angiographically normal. 2. Lupus. 3. Hypertension. 4. Hyperlipidemia. 5. Reflux disease. SOCIAL HISTORY: The patient drinks somewhat heavily. He has had a history of alcoholic pancreatitis in the past. He has a 20 pack year history of tobacco use. REVIEW OF SYSTEMS: A 10 system review of systems is negative except for those things mentioned in HPI. FAMILY HISTORY: Mother had coronary disease that was diagnosed in her 70s. PHYSICAL EXAMINATION: Vital Signs: The patient is afebrile. Heart rate is 66. His blood pressure is 115/67. General: He is in no acute distress. HEENT: Oropharynx is moist. He has poor dentition. His eye examination shows pink conjunctivae. White sclerae. Neck: Examination shows no obvious thyromegaly or thyroid tenderness. Cardiovascular: He sounds to be in a regular rate and rhythm. He has no obvious murmurs. He has no S3. He has no lower extremity edema. Chest: Sounds clear bilaterally. He has no increased work of breathing. Abdomen: Soft, nontender, nondistended. He has no obvious organomegaly. Skin: Warm and dry throughout without any rashes. Neurological: He is moving all extremities well. He has no lateralizing deficits. PERTINENT DATA: His chest x-ray shows no evidence of any acute findings. His telemetry which was reviewed by me shows sinus rhythm, with no significant arrhythmias. His EKG on the at 12:36 shows sinus rhythm. He has anterior septal Q-waves likely consistent with old infarct. His subsequent EKG occurring on the again shows anterior septal Q-waves likely consistent with old infarct. His laboratory data demonstrates a white count of 6.8. His hematocrit is 40 his platelet count is 170,000 his sodium is 137 potassium 4.3. His MCV is 98. His AST and ALT are 22 and 19 respectively. His troponins have been very flat with the initial being 48, subsequent 44 and last was 46. His lipase is 137. His TSH is 2.38. He has positive marijuana screen. No alcohol detected. ASSESSMENT: Mr. Bullard is a 59-year-old male who presented with atypical chest pain. He has a history of coronary disease. PLAN: At this point, myocardial perfusion imaging is pending. His lipase is significantly elevated. This may represent chronic pancreatitis. At this point if there is no significant reversible defects found on his nuclear scan, I would likely continue with medical therapy. He is already on beta blockers, nitrates, an RON inhibitor and Plavix. He is on moderate dose statin therapy. We will actually discontinue the simvastatin and place him on atorvastatin 40 mg which would be more appropriate considering he is a high risk patient with known coronary disease. cc: Archie Cody MD
[2019-05-07] MEDS ORDERED: LEXISCAN ONE (13:49)
[2019-05-07] MEDS: LOPRESSOR PO SCH ×2 (15:25→21:04)
[2019-05-07] MEDS: PRINIVIL PO SCH (16:16)
--- NOTE | 2019-05-07 17:42 | Diag Imaging Result Document ---
PROCEDURE NAME: MYOCARDIAL PERF SCAN, STR/REST - 05/07/2019 SUMMARY: The patient was administered 10.9 mCi of technetium-99m sestamibi, after which resting cardiac images were obtained. The patient was subsequently administered Lexiscan 0.4 mg intravenously, after which the heart rate went from 69 beats per minute to 115 beats per minute and the blood pressure went from 112/53 to 105/64. With Lexiscan, the patient denied chest discomfort. Following the administration of Lexiscan, the patient was administered 30.8 mCi of technetium 99-m sestamibi, after which gated stress cardiac images were obtained. Baseline ECG demonstrated sinus rhythm, left anterior fascicular block, and right bundle branch block. With Lexiscan, there were no diagnostic ST-segment changes. SPECT images were reconstructed in the short, horizontal long, and vertical long axis. Review of these images demonstrated moderately diminished activity in the apical anterior wall and severely diminished activity in the apex left ventricle on stress images which appears similar on resting images. No significant reversibility is evident. Gated images demonstrated a calculated left ventricular ejection fraction 52% with akinesis of the apical anteroseptal region and very apex left ventricle. CONCLUSIONS: 1. Adequate response to Lexiscan. 2. Clinically negative for chest pain. 3. Electrocardiographically there are no diagnostic ST-segment changes on ECG following administration of Lexiscan. 4. Lexiscan sestamibi images demonstrate fixed defect in the anterior apical region and apex left ventricle as described with associated wall motion abnormality consistent with previous infarction in the distribution of distal left anterior descending coronary. There is no convincing scintigraphic evidence of inducible myocardial ischemia. Calculated left ventricular ejection fraction 52%. cc: MD Paul Jean MD
--- NOTE | 2019-05-07 18:36 | Diag Imaging Result Doc PS360 ---
EXAM: CT ABD/PELVIS W/PO AND IV CON INDICATION: pancreatitis TECHNIQUE: This exam was performed using automated exposure control, adjustment of mA or kV according to patient size, and/or use of iterative reconstruction technique. COMPARISON: 07/09/2018 FINDINGS: The gallbladder is contracted. No pericholecystic inflammatory changes are appreciated. There is no evidence of biliary dilatation. The liver and spleen are unremarkable. The pancreas is grossly unremarkable. Specifically, there is no peripancreatic inflammatory change to suggest acute pancreatitis. The adrenal glands and kidneys are unremarkable. The urinary bladder is only slightly distended. There is mild diffuse bladder wall thickening that is probably due to underdistention. There is mild uncomplicated diverticulosis coli. The appendix is normal. No focal bowel wall thickening or bowel obstruction is appreciated. There is an incidental small duodenal diverticulum. The remainder of the GI tract is unremarkable. No focal inflammatory changes, free abdominal gas, or free fluid is appreciated. There is extensive aortoiliac atherosclerotic calcification but no evidence of aneurysm. There is evidence of chronic avascular necrosis of both hips. There are degenerative changes at multiple levels throughout the lumbar spine. There is mild vertebral body height loss at L1 and L2, stable. There is no definite acute osseous abnormality. IMPRESSION: Incidental/nonacute findings detailed above. No evidence of acute pancreatitis or other definite acute pathology. Electronically signed by Konstantin Shabazz 05/07/2019 6:34 PM
[2019-05-07] MEDS: LIPITOR PO SCH (21:04)
[2019-05-07] MEDS: PLAVIX PO SCH (21:04)
[2019-05-07] MEDS ORDERED: CREON PO ONE (21:52)
--- NOTE | 2019-05-07 22:22 | PROGRESS NOTE ---
DATE: 05/07/2019 SUBJECTIVE: The patient is still having some pain. Still complaining of diarrhea. OBJECTIVE: Vital Signs: Blood pressure 109/75, heart rate 99, respiratory rate 22, temperature 97.7. Cardiovascular: Regular rate and rhythm. Pulmonary: Bilateral breath sounds, clear to auscultation. GI: Soft, nontender, nondistended. Bowel sounds are positive. LABORATORY DATA: White count 6, hemoglobin and hematocrit 13 and 40, platelets 170. Comp met was negative. Troponin was not positive. Lipase 137. TSH 2.38. PROBLEM LIST: 1. Chest pain, atypical. He has ruled out with serial cardiac enzymes. We will pursue a cardiac stress test, which I think looks unlikely for ischemia. 2. Alcohol abuse, stable. No evidence of withdrawal. 3. Likely chronic pancreatitis exacerbation. We will continue treatments, IV fluids and follow closely. There was no evidence of acute pancreatitis and no inflammation. We will pursue CT scan to evaluate for chronic pancreatitis and continue to monitor. Stool studies pending as well. cc: Paul Aguilar MD
--- NOTE | 2019-05-07 22:56 | ECHO REPORT ---
ORDER DATE: 05/07/2019 MEASUREMENTS: Septal thickness 0.9. Left ventricular internal diameter in diastole 4.7, posterior wall thickness 0.8, left ventricular internal diameter in systole 3.5, aortic root 2.9, left atrium 3.3. SUMMARY: 1. Adequate quality study. 2. Aortic valve is trileaflet and opens normally on 2-dimensional images. The peak gradient across aortic valve is approximately 10 mmHg. Mitral, tricuspid, and pulmonic valves are without evidence of structural abnormality with trace mitral regurgitation and very mild tricuspid regurgitation. The estimated systolic PA pressure by Doppler is 30 to 35 mmHg. Aortic root is normal in size. 3. Normal left anterior dimensions demonstrated. Estimated left ejection fraction appears to be at least 60%. No regional wall motion abnormality is evident. Left atrium, right atrium, right ventricle are normal in size with grossly preserved right ventricular systolic function. 4. No pericardial effusion. 5. Appearance of inferior vena cava suggests normal central venous pressure. cc: MD Paul Jean MD
[2019-05-08] MEDS: LR 1,000 ML IV SCH ×2 (02:44→14:40)
[2019-05-08] MEDS: LOVENOX SUBQ SCH (05:54)
[2019-05-08 07:44] LABS: BASO# 0.08 X1000 (0.0-0.2); EOS# 0.22 X1000 (0.0-0.7); EOS% 2.8 % (0.0-10.0); HEMATOCRIT 41.6 % (42.0-52.0); HEMOGLOBIN 13.3 g/dL (14.0-18.0); IMM GRAN# 0.03 X1000 (0.0-0.04); IMM GRAN% 0.4 % (0.0-0.5); LYMPH% 33.2 % (20.5-51.1); MCH 31.1 PG (27-31); MCV 97.4 FL (81-99); MONO# 0.75 X1000 (0.11-0.59); MONO% 9.6 % (1.7-9.3); NEUT# 4.14 X1000 (1.4-6.5); PLT 200 X1000 (130-400); RBC 4.27 XMIL (4.7-6.1); RDW 12.4 % (11.5-14.5); WBC 7.82 X1000 (4.8-10.8)
[2019-05-08 08:15] LABS: AGAP 10; ALB/GLOB RATIO 1.1; ALBUMIN 3.7 g/dL (3.5-5.0); ALKALINE PHOSPHATASE 78 U/L (32-122); BUN 11 mg/dL (8-22); CALCIUM 9.1 mg/dL (8.8-10.2); CHLORIDE 98 mmol/L (98-107); COSMO 270; CREATININE 0.9 mg/dL (0.7-1.2); ESTIMATED GFR > 60; GLUCOSE 102 mg/dL (70-104); GOT 22 U/L (10-34); GPT 18 U/L (10-44); LIPASE 84 U/L (13-60); POTASSIUM 4.8 mmol/L (3.5-5.1); SODIUM 135 mmol/L (136-145); TCO2 27 mmol/L (25-35); TOTAL BILIRUBIN 0.32 mg/dL (0.20-1.00); TOTAL PROTEIN 7.1 g/dL (6.3-8.3)
[2019-05-08] MEDS: MAG-OX PO SCH (09:23)
[2019-05-08] MEDS: CREON PO SCH ×3 (09:23→18:08)
[2019-05-08] MEDS: PRINIVIL PO SCH (09:23)
[2019-05-08] MEDS: LOPRESSOR PO SCH ×2 (09:24→20:56)
[2019-05-08] MEDS: IMDUR PO SCH (09:24)
--- NOTE | 2019-05-08 14:36 | CARDIOLOGY PROGRESS NOTE ---
DATE: 05/08/2019 SUBJECTIVE: Mr. Bullard has continued to have some bouts of diarrhea but presently denies any chest pain. PHYSICAL EXAMINATION: Vital Signs: He is afebrile. His heart rates are in the 50s. His blood pressure is 108/67. General: He is in no acute distress. Cardiovascular: He sounds to be in a regular rate and rhythm. I do not hear any obvious murmurs. He has no S3. No lower extremity edema. Chest: Exam is clear bilaterally. PERTINENT DATA: White count is 7.8, hematocrit 41.6, platelet count is 200,000. Sodium is 135, potassium 4.8, BUN 11, creatinine 0.9. His troponins have been relatively flat ranging between 44 and 48. ASSESSMENT: Mr. Bullard is a 59-year-old male with a history of coronary disease and previous myocardial infarction involving an LAD stent. PLAN: His nuclear scan was reviewed and demonstrates fixed defects in the anterior apical and apical regions consistent with previous infarct. He had no convincing evidence of inducible ischemia on top of that. His ejection fraction is 52%. He continues on a beta-rambo and RON inhibitor as well as a nitrate we swapped him from moderate intensity statin therapy to high- intensity statin. From my standpoint, when he is safe from a primary team standpoint he could be discharged home. cc: Archie Cody MD
--- NOTE | 2019-05-08 15:40 | PROGRESS NOTE ---
DATE: 05/08/2019 SUBJECTIVE: The patient is still complaining of abdominal complaints and diarrhea. He still has chronic diarrhea and apparently has had it since July of last year, so this is a very chronic process. OBJECTIVE: Vital Signs: Blood pressure is 108/67, heart rate 58, respiratory rate 18, temperature 98.2 degrees, 100% on room air. Cardiovascular: Regular rate and rhythm. Pulmonary: Bilateral breath sounds clear to auscultation. GI: Abdomen soft, nontender, nondistended. Bowel sounds are positive. LABORATORY DATA: White count is 7, hemoglobin and hematocrit 13 and 41, platelets 200,000. Basic was normal. Lipase is 100, 137, 84. PROBLEM LIST: 1. Atypical chest pain. He has had serial cardiac enzymes. Those were unremarkable. Cardiac workup so far is negative. 2. History of alcohol abuse. He is stable. No evidence of significant withdrawal. 3. Subacute chronic diarrhea which presumably I felt was related pancreatitis. He does have elevated liver enzymes, but there was no acute pancreatitis and pancreas was felt to be unremarkable at least not consistent with pancreatitis. In any case, we will get a GI consult to figure out about the diarrhea. We are still waiting on stool samples. We will continue to monitor although previous stool samples have been negative. 4. Disposition: Diarrhea better, otherwise doing okay, stop the Mag-Ox. I have gone ahead and put him on Creon just in case. We will continue to follow. cc: Paul Aguilar MD
[2019-05-08] MEDS: PLAVIX PO SCH (20:56)
[2019-05-08] MEDS: LIPITOR PO SCH (20:56)
--- NOTE | 2019-05-08 21:06 | GASTROENTEROLOGY CONSULTATION ---
DATE: 05/08/2019 REQUESTING PHYSICIAN: Dr. Aguilar. REASON FOR CONSULTATION: Diarrhea. HISTORY OF PRESENT ILLNESS: This is a 59-year-old gentleman admitted to hospital with atypical chest pain. He had cardiac evaluations done, and he was ready to be discharged, but he has been complaining of diarrhea, and a consult was requested for further evaluation and treatment. The patient tells me that he has had frequent loose bowel movements for months. He would have at least 3 to 4 bowel movements a day, usually postprandial. They would be loose, but he did not complain of steatorrhea. He has not seen any blood or mucus in his stool. Has not had any associated abdominal pain. Occasionally he has some nausea but denies any vomiting. He has been drinking. He drinks about a 6 pack every other day or so of beer, and his cannabis tox screen was positive. The patient tells me that he has had occasional marijuana. At home, the patient was also taking Mag-Ox, which has been stopped. He has been started on Creon with a presumptive diagnosis of chronic pancreatitis. On admission, his lipase was slightly elevated, which is trending down now. The patient denies any indigestion, heartburn, or reflux symptoms. Has not any dysphagia or odynophagia. His appetite varies. Has not had any abdominal cramps. He has never had an endoscopy or colonoscopy. PAST MEDICAL HISTORY: Significant for hypertension and coronary artery disease. He carries diagnoses of pancreatitis and lupus. SOCIAL HISTORY: Lives with his sister. Apparently he is disabled. Smokes about a pack of cigarettes per day. Drinks frequently and also uses cannabis. MEDICATIONS: Prior to hospitalization, he has been on Plavix, Imdur, lisinopril, Mag-Ox, Lopressor, and simvastatin. ALLERGIES: No known drug allergies. FAMILY HISTORY: Noncontributory. REVIEW OF SYSTEMS: As per HPI as above. PHYSICAL EXAMINATION:: General: Very pleasant white male who is lying in bed. He is conscious, alert, and appears to be in no distress. Vitals: Temperature 98.8, pulse 60 per minute, breathing 20, blood pressure 106/61. HEENT: Head is atraumatic, normocephalic. Eyes: Conjunctivae normal. Sclerae anicteric. Nares are patent. No discharge. Mouth: Buccal mucosa is moist. Throat is normal. Neck: Supple. No lymphadenopathy or thyromegaly. Chest: Bilaterally symmetrical. It is moving with respirations. Breath sounds audible bilaterally. No rhonchi or crepitations can be heard. Heart: Audible. No murmur can be appreciated. Abdomen: Full, soft, mildly tender in the epigastric area, but no rebound tenderness or guarding noted. No mass or visceromegaly noted. Bowel sounds are audible. Extremities: No pedal cyanosis or clubbing was noted. 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 No sensory or motor deficit. LABORATORIES: Reviewed. On admission, transaminases: AST was 43, ALT 48, alkaline phosphatase 88, and total bilirubin was 0.38. Today his AST is down to 22, ALT 18, alkaline phosphatase 78. His amylase on the was 68 with a lipase of 137. His lipase is down to 84 today. WBC 7.82, hemoglobin 13.3, hematocrit 41.6, MCV 97.4, platelets 200. CT scan of the abdomen did not show any evidence of acute pancreatitis; however, no calcification was seen in the pancreas suggestive of chronic pancreatitis either. IMPRESSION: This is a 59-year-old gentleman who has presented with atypical chest pain. Has a history of coronary disease and hypertension. He apparently has had a previous myocardial infarction with percutaneous transluminal coronary angioplasty and stent. Continues to drink, and has presented with slightly elevated lipase, but imaging studies do not show evidence of acute pancreatitis. Because of loose bowel movements, chronic pancreatitis has been entertained, but the imaging studies have not shown any calcification in the pancreas. A lactoferrin was done, but a stool for elastase was not checked. That would have given as some indication whether he has pancreatic insufficiency or exocrine insufficiency. He has already been started on Creon. Now the test would give us false-negative results. Stool studies were negative. At this point, I would continue the Creon that was started earlier, but he needs further evaluation that can be done as an outpatient. The patient is not interested in getting any workup done here while in the hospital. I would continue him on Creon and avoid Mag-Ox (that have already been stopped). I would advise him to avoid milk and milk products, and depending on his progress, further plans to be made as an outpatient. cc: Xavier Hernandez MD
[2019-05-09] MEDS: LR 1,000 ML IV SCH ×2 (02:05→11:21)
[2019-05-09] MEDS: LOVENOX SUBQ SCH (05:46)
[2019-05-09 08:08] LABS: BASO# 0.06 X1000 (0.0-0.2); BASO% 0.8 % (0.0-0.8); EOS# 0.17 X1000 (0.0-0.7); EOS% 2.3 % (0.0-10.0); HEMATOCRIT 38.3 % (42.0-52.0); HEMOGLOBIN 12.7 g/dL (14.0-18.0); LYMPH# 1.81 X1000 (1.2-3.4); LYMPH% 24.3 % (20.5-51.1); MCH 31.9 PG (27-31); MCHC 33.2 g/dL (33-37); MCV 96.2 FL (81-99); MONO# 0.97 X1000 (0.11-0.59); NEUT# 4.44 X1000 (1.4-6.5); NEUT% 59.6 % (42.2-75.2); PLT 163 X1000 (130-400); RBC 3.98 XMIL (4.7-6.1); RDW 12.3 % (11.5-14.5); WBC 7.45 X1000 (4.8-10.8)
[2019-05-09 08:53] LABS: AGAP 9; BUN 9 mg/dL (8-22); CHLORIDE 101 mmol/L (98-107); COSMO 271; CREATININE 0.9 mg/dL (0.7-1.2); ESTIMATED GFR > 60; GLUCOSE 107 mg/dL (70-104); SODIUM 136 mmol/L (136-145); TCO2 26 mmol/L (25-35)
[2019-05-09] MEDS: CREON PO SCH ×2 (08:59→13:29)
[2019-05-09] MEDS: LOPRESSOR PO SCH (08:59)
[2019-05-09] MEDS: PRINIVIL PO SCH (08:59)
[2019-05-09] MEDS: IMDUR PO SCH (08:59)
[2019-05-09] MEDS ORDERED: LOMOTIL PO PRN (11:32)
[2019-05-09 13:41] VITALS: BP 111/56
--- NOTE | 2019-05-09 20:04 | GASTROENTEROLOGY PROGRESS NOTE ---
DATE: 05/09/2019 SUBJECTIVE: Patient states he is feeling better. He is hoping to go home. His diarrhea has improved some today. OBJECTIVE: Vital Signs: Temperature 98 degrees, pulse 68, respirations 18, blood pressure 111/56. General: Patient is awake, alert, in no acute distress. He is feeling better. LABORATORY: Hematology: WBC 7.45, hemoglobin 12.7, hematocrit 38.3, MCV 96.2, platelet 163,000. Chemistry: Sodium 136, potassium 4.0, chloride 101, CO2 26, BUN 9, creatinine 0.9, glucose 107, calcium 9.0, total bilirubin 0.32, AST 22, ALT 18, alkaline phosphatase 78. ASSESSMENT AND PLAN: 1. Chest pain has improved. 2. History of alcohol abuse. Recommend cessation. 3. Diarrhea has improved with Creon. Continue current medications. Recommend he follow up with us as an outpatient. 4. Further plans to be made according to his progress. I have discussed this case with Dr. Hernandez. Dictated by NAMRATA Cheng for Xavier Hernandez MD cc: NAMRATA Wright MD
--- NOTE | 2019-05-09 20:33 | DISCHARGE SUMMARY ---
ADMISSION DATE: 05/06/2019 DISCHARGE DATE: 05/09/2019 DISCHARGE DIAGNOSES: 1. Atypical chest pain. 2. Chronic diarrhea, which may be related to early chronic pancreatitis. 3. History of alcohol abuse. CONSULTATIONS: GI. PROCEDURES: None. This is a 59-year-old male with history of chest pain, alcohol abuse, who came in with atypical chest pain but also significant diarrhea. Ultrasound showed no pathology. Echo showed EF of 60% with no wall motion abnormality. He underwent myocardial perfusion which did not show any reversible ischemia. Cardiology felt this was a noncardiac source of chest pain and continue his regular medications and change him to atorvastatin. He was still having persistent diarrhea. I was concerned with his alcohol history, history of pancreatitis that he may have chronic pancreatitis, but the CT scan really did not confirm that. There were no calcifications. Now his lipase was elevated during his course, 100, 137, 84, and we will continue to follow. ET's 52% and it did not seem like that. 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 cc: Paul Aguilar MD
== END 2019-05-09 16:26 | disposition home or self-care (01) | DRG 313 ==
LOC: SUPCPDRO → 3N 12:16 → ED 12:16 → OBSVTOIN 21:07
PROVIDERS: ATTEND Internal Medicine